=== PATIENT | female | born 1945 | race Caucasian/White ===

== ENCOUNTER 2021-03-24 14:53 | Emergency (ER) | payer MEDICARE, SELFPAY ==
--- NOTE | ~2021-03-24 | XR_ITS ---
EXAMINATION: BILATERAL WRIST, LEFT HIP AND PELVIS AND LEFT SHOULDER X-RAYS CLINICAL INFORMATION: Pain post fall COMPARISON: None TECHNIQUE: 4 views of each wrist, one view of the pelvis and left hip and 4 views of the left shoulder FINDINGS: Left wrist: Bone alignment is normal. No acute fracture or dislocation is seen. There is cortical thickening along the base of the second metacarpal bone questionable for changes from old trauma. There is severe arthritis at the first SENIOR LIVING joint with joint space narrowing and osteophyte formation. There is soft tissue calcification in the triangular fibrocartilage complex. There is soft tissue arterial calcification. Right wrist: Bone alignment is normal. No fracture or dislocation is seen. There is mild arthritis at the first SENIOR LIVING joint with joint space narrowing and osteophyte formation. There is soft tissue calcification of the triangular fibrocartilage complex region. There is soft tissue arterial calcification. Pelvis and left hip x-ray: Bone alignment is normal. No fracture or dislocation is seen. There is arthritis at the left hip joint with joint space narrowing and osteophyte formation. There is mild arthritis right hip joint. Bones of the pelvis are unremarkable. There are degenerative changes of the lower lumbar spine. There is soft tissue arterial calcification. Left shoulder: Bone alignment is normal. No fracture or dislocation is seen. The glenohumeral joint is normal. There is arthritis at the acromioclavicular joint. There are degenerative changes of the greater tuberosity. There are surgical clips in the left axilla. XR/XR wrist LT 2V IMPRESSION: No acute fracture or dislocation seen.
--- NOTE | ~2021-03-24 | CT_ITS ---
EXAMINATION: CT BRAIN AND CT CERVICAL SPINE WITHOUT CONTRAST. CLINICAL INFORMATION: Fall, hit head headache. COMPARISON: None TECHNIQUE: 5 mm thin axial and reformatted 2 mm thin sagittal and coronal images of brain were obtained. Axial 3 mm thin and reformatted 2 mm thin sagittal and coronal images of cervical spine were obtained. DLP [id number]. FINDINGS: Brain: There is acute interhemispheric subdural hematoma extending to the right tentorium. There is no edema or mass effect. There is no intraparenchymal bleed. No acute infarction. The lateral ventricles are symmetrical in size and configuration without enlargement. There is diffuse periventricular hypodensity suggestive of chronic small vessel ischemic changes. Bone windows reveal no calvarial fracture. Bilateral paranasal sinuses and mastoid air cells are well aerated. There is mild mucoperiosteal thickening right maxillary sinus. There is no scalp soft tissue abnormality seen. Cervical spine: There is mild straightening of cervical lordosis. The vertebral heights, alignment are normal. There is mild loss of C4-C5, C5-C6 and C6-C7 disc heights with moderate ventral and mild posterior spondylosis. The craniovertebral junction and the C1-C2 alignment is normal. No visible acute fracture, dislocation or subluxation seen. The prevertebral and paravertebral soft tissues are normal. There is calcification of the dentate ligament. Thyroid lobes are symmetrical with 7 mm calcified hypodense nodule right lobe. CT/CT cervical spine wo con IMPRESSION: Acute interhemispheric subdural hemorrhage extending to the right tentorium. No mass effect, edema or midline shift. There is mild straightening of cervical lordosis. Grade 1 anterolisthesis C3 over C4 is noted. There are degenerative disc changes with spondylosis C4-C5, C5-C6, C6-C7 and C7-T1 disc levels. No acute fracture or dislocation seen. Results were called to Charlene Echeverria in the ER by phone at 4:20 PM.
--- NOTE | ~2021-03-24 | XR_ITS ---
EXAMINATION: BILATERAL WRIST, LEFT HIP AND PELVIS AND LEFT SHOULDER X-RAYS CLINICAL INFORMATION: Pain post fall COMPARISON: None TECHNIQUE: 4 views of each wrist, one view of the pelvis and left hip and 4 views of the left shoulder FINDINGS: Left wrist: Bone alignment is normal. No acute fracture or dislocation is seen. There is cortical thickening along the base of the second metacarpal bone questionable for changes from old trauma. 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 There is soft tissue calcification in the triangular fibrocartilage complex. There is soft tissue arterial calcification. Right wrist: Bone alignment is normal. No fracture or dislocation is seen. There is mild arthritis at the first SENIOR CARE joint with joint space narrowing and osteophyte formation. There is soft tissue calcification of the triangular fibrocartilage complex region. There is soft tissue arterial calcification. Pelvis and left hip x-ray: Bone alignment is normal. No fracture or dislocation is seen. There is arthritis at the left hip joint with joint space narrowing and osteophyte formation. There is mild arthritis right hip joint. Bones of the pelvis are unremarkable. There are degenerative changes of the lower lumbar spine. There is soft tissue arterial calcification. Left shoulder: Bone alignment is normal. No fracture or dislocation is seen. The glenohumeral joint is normal. There is arthritis at the acromioclavicular joint. There are degenerative changes of the greater tuberosity. There are surgical clips in the left axilla. XR/XR wrist RT 2V IMPRESSION: No acute fracture or dislocation seen.
--- NOTE | ~2021-03-24 | XR_ITS ---
EXAMINATION: BILATERAL WRIST, LEFT HIP AND PELVIS AND LEFT SHOULDER X-RAYS CLINICAL INFORMATION: Pain post fall COMPARISON: None TECHNIQUE: 4 views of each wrist, one view of the pelvis and left hip and 4 views of the left shoulder FINDINGS: Left wrist: Bone alignment is normal. No acute fracture or dislocation is seen. There is cortical thickening along the base of the second metacarpal bone questionable for changes from old trauma. There is severe arthritis at the first LONG TERM joint with joint space narrowing and osteophyte formation. There is soft tissue calcification in the triangular fibrocartilage complex. There is soft tissue arterial calcification. Right wrist: Bone alignment is normal. No fracture or dislocation is seen. There is mild arthritis at the first LONG TERM joint with joint space narrowing and osteophyte formation. There is soft tissue calcification of the triangular fibrocartilage complex region. There is soft tissue arterial calcification. Pelvis and left hip x-ray: Bone alignment is normal. No fracture or dislocation is seen. There is arthritis at the left hip joint with joint space narrowing and osteophyte formation. There is mild arthritis right hip joint. Bones of the pelvis are unremarkable. There are degenerative changes of the lower lumbar spine. There is soft tissue arterial calcification. Left shoulder: Bone alignment is normal. No fracture or dislocation is seen. The glenohumeral joint is normal. There is arthritis at the acromioclavicular joint. There are degenerative changes of the greater tuberosity. There are surgical clips in the left axilla. XR/XR hip LT w PEL1V IMPRESSION: No acute fracture or dislocation seen.
--- NOTE | ~2021-03-24 | XR_ITS ---
EXAMINATION: BILATERAL WRIST, LEFT HIP AND PELVIS AND LEFT SHOULDER X-RAYS CLINICAL INFORMATION: Pain post fall COMPARISON: None TECHNIQUE: 4 views of each wrist, one view of the pelvis and left hip and 4 views of the left shoulder FINDINGS: Left wrist: Bone alignment is normal. No acute fracture or dislocation is seen. There is cortical thickening along the base of the second metacarpal bone questionable for changes from old trauma. There is severe arthritis at the first SKILLED NURSING joint with joint space narrowing and osteophyte formation. There is soft tissue calcification in the triangular fibrocartilage complex. There is soft tissue arterial calcification. Right wrist: Bone alignment is normal. No fracture or dislocation is seen. There is mild arthritis at the first SKILLED NURSING joint with joint space narrowing and osteophyte formation. There is soft tissue calcification of the triangular fibrocartilage complex region. There is soft tissue arterial calcification. Pelvis and left hip x-ray: Bone alignment is normal. No fracture or dislocation is seen. There is arthritis at the left hip joint with joint space narrowing and osteophyte formation. There is mild arthritis right hip joint. Bones of the pelvis are unremarkable. There are degenerative changes of the lower lumbar spine. There is soft tissue arterial calcification. Left shoulder: Bone alignment is normal. No fracture or dislocation is seen. The glenohumeral joint is normal. There is arthritis at the acromioclavicular joint. There are degenerative changes of the greater tuberosity. There are surgical clips in the left axilla. XR/XR shoulder LT min 2V IMPRESSION: No acute fracture or dislocation seen.
[2021-03-24 14:59] VITALS: BP 149/98; PULSE 71; RESP 16; TEMP 36.1; O2SAT 99; BMI 26.1
--- NOTE | 2021-03-24 15:41 | ED.FALL ---
HPI - Fall General Chief Complaint: Fall Stated Complaint: fell head, neck, and hip pain Time Seen by Provider: 03/24/21 15:19 Source: patient Mode of arrival: ambulatory Limitations: no limitations History of Present Illness HPI Narrative: 75 yo female with past medical history of IDDM, HTN, GERD, breast cancer s/p left mastectomy. Lost balance last night falling striking left side of head on car door. No LOC. +dent on the car door. Landed on buttocks, struck left shoulder and caught self with bilateral wrists. NO anticoagulation use. +BORREGO. No nausea/vomiting/dizziness/vision changes. ambulatory with walker. +ASA only Related Data Allergies Allergy/AdvReac Type Severity Reaction Status Date / Time codeine Allergy Unconscious Verified 03/24/21 16:23 hydromorphone [From Dilaudid] Allergy Unconscious Verified 03/24/21 16:23 morphine Allergy Unconscious Verified 03/24/21 16:23 povidone-iodine Allergy Unknown Verified 03/24/21 16:23 [From Betadine] shellfish derived Allergy Unknown Verified 03/24/21 16:23 soap [From Betadine] Allergy Unknown Verified 03/24/21 16:23 Review of Systems Review of Systems: Yes all other systems are reviewed and are negative Constitutional: Constitutional: Reports no additional constitutional complaints, Denies body ache(s), Denies chills, Denies fever(s), Reports headache(s) and Denies weakness Eyes: Eyes: Reports no additional eye complaints and Denies change in vision ENT: Reports system reviewed and no additional complaints, except as documented, Denies dizziness, Reports headache(s), Denies nasal congestion, Denies nasal discharge and Denies neck pain Cardiovascular: Cardiovascular: Reports no additional cardiovascular complaints, Denies chest pain, Denies leg edema and Denies dyspnea Respiratory: Respiratory: Reports no additional respiratory complaints, Denies cough and Denies dyspnea Gastrointestinal: Gastrointestinal: Reports no additional gastrointestinal complaints, Denies abdominal pain, Denies diarrhea, Denies nausea and Denies vomiting Genitourinary: Genitourinary: Reports no additional female genitourinary complaints and Denies urinary incontinence Musculoskeletal: Musculoskeletal: Reports no additional musculoskeletal complaints, Denies back pain, Reports arthralgias, Denies joint swelling, Denies neck pain, Denies numbness and Denies tingling Integumentary/Breasts: Skin/Breast: Reports system reviewed and no additional complaints, except as docu and Denies rash Neurologic: Reports system reviewed and no additional complaints, except as documented, Denies Abnormal speech present, Denies dizziness, Reports headache(s), Denies numbness, Denies tingling and Denies weakness PMFSH Past Medical History Attestation statement: The following information was validated with the patient. Source: old records reviewed and nursing notes reviewed Medical History Breast cancer Cervical cancer Diabetes HTN (hypertension) Thyroid cancer Surgical History H/O mastectomy H/O: hysterectomy Status post partial removal of lung Social History Social History Advance Directives: No Advance Directives Information Provided: Yes Physical Exam Vital Signs: Vital Signs: Last Vital Signs Temp 97.9 F 03/24/21 18:00 Pulse 71 03/24/21 18:00 Resp 16 03/24/21 18:00 BP 149/64 H 03/24/21 18:00 Pulse Ox 97 03/24/21 18:00 Body Mass Index 26.1 Const: General: cooperative, healthy appearing, comfortable and no acute distress Orientation/consciousness: patient oriented x3 Limitations: no limitations HENMT: Head: Yes normal to inspection Ears: hearing grossly normal bilaterally and TM's normal bilaterally General nose exam: Normal external nose present Face and sinus: Yes normal facial exam Mouth: Normal oral and palatal mucosa present Throat: Yes posterior oropharynx normal Eyes: General: appearance normal, both eyes and all related structures Pupils: Equal, round and reactive pupils present Neck: Other: midline tenderness, no step offs or deformities. Neck: Yes normal visual inspection, Yes full ROM and Yes no lymphadenopathy Chest: Chest palpation & inspection: normal inspection of the chest Resp: Effort & Inspection: normal respiratory effort Auscultation: clear to auscultation bilaterally Cardio: Rate: regular rate Rhythm: regular rhythm Peripheral pulses: Peripheral pulses 2+ throughout GI: Inspection: Yes normal to inspection Palpation (GI): Soft to palpation and nontender Auscultation: normal bowel sounds Back/Spine/Pelvis: Other: Tenderness to lumbar spine (no step offs or deformities) Tenderness to left lateral hip with no obvious swelling/deformity or ecchymosis. FROM. Ambulatory with walker. Also c/o tenderness to right hip with tenderness posterior right pelvis. FROM Thoracic/Lumbar Spine: thoracic and lumbar spine normal to inspection Skin: General skin exam: no rashes or lesions noted Neuro: General: patient oriented x3, moves all extremities and normal sensation to monofilament Cranial nerves: Yes Equal, round and reactive pupils present, Yes Normal facial strength present and Yes Midline tongue present Cognition (Neuro): normal cognition Speech: No Abnormal speech present Gait exam (Neuro): Normal gait present Motor exam (neuro): 5/5 motor strength present throughout Sensory Exam: Normal double simultaneous stimulation for sensation Extrem: Other: pain to bilateral wrists-splints in place. FROM. No obvious deformity/swelling. Pain to posterior shoulder left side and left lateral humerus with FROM General: Yes normal to inspection NIH Stroke Scale Internal: Initial- Upon Arrival Level of Consciousness: Alert Level of Consciousness Questions: Answers both questions correctly Level of Consciousness Commands: Performs both tasks correctly Best Gaze: Normal Visual: No visual loss Facial Palsy: Normal Motor Arm (Right): No drift Motor Arm (Left): No drift Motor Leg (Right): No drift Motor Leg (Left): No drift Limb Ataxia: Absent Sensory: Normal Best Language: No aphasia Dysarthia: Normal Extinction and Inattention: No abnormality Score: 0 Course Course Course Narrative: Multiple MS complaints s/p mechanical fall last evening. Will check X-rays. Also c/o head strike with complaints of BORREGO/neck pain. Will check CT head/neck. -1630-Call from radiologist. Concern for SDH. No mass effect or shift. Images sent through [facility]. Pending report. Repeat neurological exam unchanged. HD stable. -1640-Call out to [facility] [place] to discuss for transfer d/t no NSY coverage here. -1700-Spoke to Samira SCHMIDT at [facility]. Recommends holding ASA x 2 weeks, no need for transfer, f/u with PCP for repeat imaging. After discussion with patient and nursing I am concerned sending the patient home as she lives alone. Will discuss with our neurologist here. -1743-D/w with Sandy who agrees patient can be discharged home as long as she is comfortable with this. I spoke to patient and her son Jerod. The patient will be staying with him tonight and they are both comfortable with this plan of care. Reviewed worrisome signs/symptoms with patient and when to return to ED. Comfortable with discharge home. -Discussed entire case and plan with attending Dr Christie who agrees with plan of care. MDM - Fall Medical Records Attestation: I reviewed the patient's medical records. Lab Data Attestation: I reviewed the patient's lab results. Imaging Data bilateral wrist x-ray: Attestation: I personally reviewed and interpreted this imaging study as follows: Radiologist's impression: Left wrist: Bone alignment is normal. No acute fracture or dislocation is seen. There is cortical thickening along the base of the second metacarpal bone questionable for changes from old trauma. 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 There is soft tissue calcification in the triangular fibrocartilage complex. There is soft tissue arterial calcification. Right wrist: Bone alignment is normal. No fracture or dislocation is seen. There is mild arthritis at the first SENIOR CARE joint with joint space narrowing and osteophyte formation. There is soft tissue calcification of the triangular fibrocartilage complex region. There is soft tissue arterial calcification. pelvis/Left hip x-ray: Attestation: I personally reviewed and interpreted this imaging study as follows: Radiologist's impression: Pelvis and left hip x-ray: Bone alignment is normal. No fracture or dislocation is seen. There is arthritis at the left hip joint with joint space narrowing and osteophyte formation. There is mild arthritis right hip joint. Bones of the pelvis are unremarkable. There are degenerative changes of the lower lumbar spine. There is soft tissue arterial calcification. Left shoulder x-ray: Attestation: I personally reviewed and interpreted this imaging study as follows: Radiologist's impression: Left shoulder: Bone alignment is normal. No fracture or dislocation is seen. The glenohumeral joint is normal. There is arthritis at the acromioclavicular joint. There are degenerative changes of the greater tuberosity. There are surgical clips in the left axilla. Critical Care Time Critical Care Time Critical Care Time: Yes Total Critical Care Time: 60 Attestation: Abnormal CT scan, review of images, discussion with radiology, NSY at tertiary care center, neurology here, repeat neurological exams. Discharge Plan Discharge Clinical Impression: Subdural hemorrhage, Contusion Patient Disposition: Home, Self-Care Instructions: Intracranial Hematoma (ED), Contusion in Adults (ED) Additional Instructions: your CT scan of your head showed a small area of bleeding. After discussion with both Neurology and Neurosurgery the area is very small and you can follow-up outpatient with your primary care doctor in 2 weeks for repeat imaging hold her aspirin for 2 weeks return here for severe headache, vomiting episodes, dizziness, change in behavior, vision changes as discussed Referrals: Cassandra Tolentino MD [Primary Care Provider] - 2 days Interventions: ED Discharge Assessment Last Done: 03/24/21 18:18
[2021-03-24 18:00] VITALS: BP 149/64; PULSE 71; RESP 16; TEMP 36.6; O2SAT 97
== END 2021-03-24 18:40 | disposition home or self-care (01) ==
PROVIDERS: Emergency Provider Internal Medicine; PCP Internal Medicine
DX: S06.5X0A Traumatic subdural hemorrhage without loss of consciousness, initial encounter (principal); T14.8XXA Other injury of unspecified body region, initial encounter; I10 Essential (primary) hypertension; E11.9 Type 2 diabetes mellitus without complications; Z79.4 Long term (current) use of insulin; W18.30XA Fall on same level, unspecified, initial encounter; Y93.9 Activity, unspecified; Y92.9 Unspecified place or not applicable; Y99.9 Unspecified external cause status
CPT/HCPCS: 70450; 72125; 73030; 73100; 73502; 99284; 99291

== ENCOUNTER 2021-03-31 16:35 | Outpatient (REF) | payer MEDICARE, SELFPAY ==
--- NOTE | ~2021-03-31 | CT_ITS ---
EXAMINATION: CT HEAD WITHOUT CONTRAST CLINICAL INFORMATION: Traumatic subdural hemorrhage without loss of consciousness. COMPARISON: CT brain 03/24/2021. TECHNIQUE: Contiguous axial imaging was performed from the skull base to vertex without intravenous administration of contrast. This CT examination was performed using dose optimization techniques as appropriate, variously including the following: *Automated exposure control *Adjustment of mA and/or kV according to patient size (this includes techniques or standardized protocols for targeted exams where dose is matched to indication/reason for exam; i.e. extremities or head) *Use of iterative reconstruction technique DLP: 679 mGy-cm FINDINGS: Again visualized is diffuse hyperdense interhemispheric dura extending to the right tentorium similar to previous study from 03/24/2021. There is no major change in the thickness and hypodensity. There is no parenchymal mass, bleed or edema. There is diffuse periventricular hypodensity in both cerebral hemispheres without mass effect or edema. Bone windows reveal no calvarial abnormality. No scalp soft tissue abnormality. The paranasal sinuses are well aerated and unremarkable. CT/CT head/brain wo con IMPRESSION: No significant change in the diffusely thickened interhemispheric dura and right tentorium. Differential diagnosis includes chronic meningeal thickening. Hematoma is considered less likely. Recommend MRI brain without contrast. There is no acute infarct at this time.
== END 2021-03-31 16:36 | disposition home or self-care (01) ==
LOC: HO.CT 16:35
PROVIDERS: PCP Internal Medicine; Visit Provider Internal Medicine
DX: S06.5X0D Traumatic subdural hemorrhage without loss of consciousness, subsequent encounter (principal)
CPT/HCPCS: 70450

== ENCOUNTER 2023-05-03 11:34 | Outpatient (AMB) | payer MEDICARE, MEDICAID, SELFPAY ==
--- NOTE | 2023-05-03 12:30 | MHC.OFFWIV ---
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 Patient Tobacco Use Status: Never used Tobacco Allergies codeine Allergy (Verified 05/03/23 12:32) Unconscious hydromorphone [From Dilaudid] Allergy (Verified 05/03/23 12:32) Unconscious morphine Allergy (Verified 05/03/23 12:32) Unconscious povidone-iodine [From Betadine] Allergy (Verified 05/03/23 12:32) Unknown shellfish derived Allergy (Verified 05/03/23 12:32) Unknown soap [From Betadine] Allergy (Verified 05/03/23 12:32) Unknown Do you need a note to return to daycare/school/sports/work: No HPI HPI Comments History of Present Illness Details 77-year-old female presents for suture removal for laceration to the left lower extremity. [facility] Medical History Breast cancer Cervical cancer Diabetes HTN (hypertension) Thyroid cancer Surgical History H/O mastectomy H/O: hysterectomy Status post partial removal of lung Social History Patient Tobacco Use Status: Never used Tobacco Review of Systems Const Details: Constitutional: No Fever, No Chills Cardiovascular: No Chest Pain, No SOB Respiratory: No Cough, No Dyspnea Gastrointestinal: No Nausea, No Vomiting, No Diarrhea, No abdominal Pain Genitourinary: No Dysuria, No Hematuria Musculoskeletal: No joint pain, No Myalgias, No Joint Swelling Skin: Positive laceration to the left lower extremity, No rash Neuro: No Weakness, No Numbness, No Paresthesias, No Dizziness, No Headache All systems reviewed & are unremarkable except as noted in HPI and below Physical Exam Vital Signs: Last Vital Signs Temp 97.1 F 05/03/23 12:33 Pulse 79 05/03/23 12:33 BP 128/64 05/03/23 12:33 Pulse Ox 97 05/03/23 12:33 Oxygen Delivery Method Room Air 05/03/23 12:33 Appearance: Alert. Oriented X3. No acute distress. Eyes: Pupils equal, round and reactive to light. Neck: Normal inspection. Neck supple. CVS: Normal heart rate and rhythm. Pulses normal. Respiratory: No respiratory distress. Breath sounds normal. Abdomen: Soft and nontender. Skin: Cellulitis surrounding 4 cm laceration to the medial aspect of the left lower extremity. Wound dehiscence and purulent drainage noted from the site. Poorly approximated. Extremities: No lower extremity edema. Gait is balanced and well coordinated with walker. Neuro: No motor deficit. No sensory deficit. Cranial nerves 2-12 intact. Assessment & Plan Assessment & Plan (1) Visit for suture removal: Code(s): Z48.02 - Encounter for removal of sutures (2) Infected wound: Code(s): T14.8XXA - Other injury of unspecified body region, initial encounter; L08.9 - Local infection of the skin and subcutaneous tissue, unspecified Plan 77-year-old female presents for suture removal to a laceration that was repaired last Saturday. Patient states that she she obtained a laceration from a dog scratch, and was evaluated at [facility]. Patient stated that she has 11 sutures, was given Augmentin but stopped taking the medication 2 and half days ago because she was having GI symptoms. Patient is an insulin-dependent diabetic, on amlodipine, and Eliquis. The wound is erythematous, has purulent drainage, and has dehiscence. The wound is not well healed, with poor approximation. Sutures were removed as multiple had already broken due to the dehiscence. 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 Patient is afebrile, stable vital signs that are within normal limits, appears nontoxic, gait is well balanced and coordinated with her walker. Approximately 2 cm and a diameter of cellulitis surrounding a 4 cm poorly healed dehisced wound. Considering that this patient is afebrile, with a normal set of vital signs, I do not feel that she is septic at this time. I do feel that the wound is infected, and is cellulitic. Patient does understand that she must complete the entire course for antibiotics, will give doxycycline as patient is intolerant to Augmentin. Patient would like to add Augmentin to her allergy list, however I highly discouraged her doing that because of the GI symptoms are not a true allergic reaction. I highly recommend this patient present in 3 days for wound check, and if symptoms worsen for her to present to the emergency department. Patient verbalized understanding of discharge instructions. Verbalized understandings of signs and symptoms indicating need for emergent intervention. Medications: New doxycycline monohydrate 100 mg PO BID 10 days 20 caps 0RF Patient Instructions: You were evaluated for the wound to your lower extremity. The wound is not healing very well and is infected. Keep Steri-Strips in place. They will fall off on their own. Take doxycycline 100 mg every 12 hours for the next 10 days. Return for wound check on Saturday. Thank you for choosing this urgent care for evaluation. Please follow-up with primary care physician as needed. Return to the emergency department for any new, concerning, or worsening symptoms. Coding Level of Care Code Est Pt Level 3 (92375) Diagnoses Visit for suture removal Z48.02 Infected wound T14.8XXA; L08.9
[2023-05-03 12:33] VITALS: BP 128/64; PULSE 79; TEMP 36.2; O2SAT 97
== END 2023-05-03 13:19 | disposition home or self-care (01) ==
PROVIDERS: PCP Internal Medicine; Visit Provider Nurse Practitioner Family
DX: Z48.02 Encounter for removal of sutures (principal); T14.8XXA Other injury of unspecified body region, initial encounter; L08.9 Local infection of the skin and subcutaneous tissue, unspecified
CPT/HCPCS: 99213

== ENCOUNTER 2023-05-06 08:09 | Outpatient (AMB) | payer MEDICARE, MEDICAID, SELFPAY ==
--- NOTE | 2023-05-06 08:22 | AM.OFFWIN_ITS ---
Intake Vital Signs 05/06/23 08:30 Weight 164 lb BP 122/70 Blood Pressure Location Rt brachial Position Sitting Pulse 74 Pulse Source Pulse Oximeter Pulse Oximetry (%) 97 Intake Visit Reasons: EP, Dog Bite not getting better Intake Note: Patient here because she was bitten by a dog and some stitches were put in and when she had them removed saturday and was told that it was infected. pt states it was bleeding last night. Patient Tobacco Use Status: Never used Tobacco Allergies codeine Allergy (Verified 05/07/23 06:13) Unconscious hydromorphone [From Dilaudid] Allergy (Verified 05/07/23 06:13) Unconscious morphine Allergy (Verified 05/07/23 06:13) Unconscious povidone-iodine [From Betadine] Allergy (Verified 05/07/23 06:13) Unknown shellfish derived Allergy (Verified 05/07/23 06:13) Unknown soap [From Betadine] Allergy (Verified 05/07/23 06:13) Unknown Medication List - Last Reconciled 05/07/23 by Mamadou Shultz MD alendronate 70 mg PO QWEEK amlodipine 2.5 mg PO DAILY amoxicillin-pot clavulanate 875-125 mg 1 tab PO Q12H apixaban (Eliquis) 2.5 mg PO BID furosemide 20 mg PO BID insulin aspart U-100 (Novolog U-100 Insulin aspart) subcut levothyroxine 125 mcg PO DAILY lisinopril 5 mg PO DAILY nitroglycerin 0 mg sublingual sub-q insulin device, 20 unit (V-GO 20 device) As directed Do you need a note to return to daycare/school/sports/work: No HPI EP, Dog Bite not getting better HPI Details 77-year-old female presents to the office for a sick visit. This is her 3rd visit for a dog bite injury. She was seen in the emergency room with a scratch from her dog. It resulted in stitches over her right leg. She was seen last week at the walk-in and the wound appears to be healing well. Patient returns today because the Steri-Strips have not fallen off. She reports no tenderness. No fevers or chills. [facility] Medical History Breast cancer Cervical cancer Diabetes HTN (hypertension) Thyroid cancer Surgical History H/O mastectomy H/O: hysterectomy Status post partial removal of lung Social History Patient Tobacco Use Status: Never used Tobacco Physical Exam Vital Signs: Last Vital Signs Pulse 74 05/06/23 08:30 BP 122/70 05/06/23 08:30 Pulse Ox 97 05/06/23 08:30 Extrem Other: Right leg: Wound appears to be healing well. Steri-Strips are in place. No erythema or induration around the wound. Assessment & Plan Assessment & Plan (1) Wound of right leg: Code(s): S81.801A - Unspecified open wound, right lower leg, initial encounter Plan: Reassurance. Patient was advised that the Steri-Strips will fall off on their own. Coding Level of Care Code Est Pt Level 3 (82777) Diagnoses Wound of right leg S81.801A
[2023-05-06 08:30] VITALS: BP 122/70; PULSE 74; O2SAT 97
== END 2023-05-06 09:18 | disposition home or self-care (01) ==
PROVIDERS: PCP Internal Medicine; Visit Provider Internal Medicine
DX: S81.801A Unspecified open wound, right lower leg, initial encounter (principal)
CPT/HCPCS: 99213

== ENCOUNTER 2023-06-12 08:56 | Outpatient (RCR) | payer MEDICARE, MEDICAID, SELFPAY | END 2024-04-17 12:12 | disposition home or self-care (01) | LOC: HO.WCC 08:56 | PROVIDERS: PCP Internal Medicine; Visit Provider Surgery | DX: Z09 Encounter for follow-up examination after completed treatment for conditions other than malignant neoplasm (principal); E11.40 Type 2 diabetes mellitus with diabetic neuropathy, unspecified; E11.22 Type 2 diabetes mellitus with diabetic chronic kidney disease; I12.9 Hypertensive chronic kidney disease with stage 1 through stage 4 chronic kidney disease, or unspecified chronic kidney disease; N18.30 Chronic kidney disease, stage 3 unspecified; Z87.891 Personal history of nicotine dependence; Z86.718 Personal history of other venous thrombosis and embolism; Z92.21 Personal history of antineoplastic chemotherapy; Z92.3 Personal history of irradiation; Z86.31 Personal history of diabetic foot ulcer | CPT/HCPCS: 11042; 11043; 15275; 97597; 99212; Q4187 ==

== ENCOUNTER 2023-12-05 09:21 | Outpatient (REF) | payer MEDICARE, MEDICAID, SELFPAY ==
--- NOTE | ~2023-12-05 | XR_ITS ---
EXAMINATION: XR HIP, RIGHT CLINICAL INFORMATION: Pain in right hip. COMPARISON: AP pelvis and left hip radiographs of 03/24/2021. TECHNIQUE: AP view of the pelvis and lateral view of the right hip. FINDINGS: Advanced degenerative changes on AP view of the left hip with joint space narrowing and hypertrophic change. Bones are diffusely demineralized. Devices overlie the left iliac wing and medial aspect of the left femoral head. Extensive vascular calcifications. Intramedullary devorah and screw transfix comminuted fracture of the right intertrochanteric region of unknown age. Prior images and history of fracture are not available at this time. Please note that the distal femoral portion of the devorah is not included on images provided, and dedicated images of the mid to distal femur should be considered if there is clinical concern. Fracture lines are visible, but there is some associated sclerosis suggesting some bridging callus. Increased soft tissue calcifications along the superolateral aspect of the femur. Linear radiopaque device projects lateral to the greater trochanter. XR/XR hip RT min 2V IMPRESSION: Intramedullary devorah and screw transfix comminuted fracture of the right intertrochanteric region of unknown age. Prior images and history of fracture are not available at this time. Correlation with clinical history and exam recommended to determine further management. This study was presented today, 12/11/2023, for interpretation. PSA staff will provide results to referring provider at this time.
== END 2023-12-05 09:22 | disposition home or self-care (01) ==
LOC: HO.HOSX 09:21
PROVIDERS: Visit Provider Orthopaedic Surgery
DX: M25.551 Pain in right hip (principal); Z79.899 Other long term (current) drug therapy
CPT/HCPCS: 73502; 99202

== ENCOUNTER 2023-12-05 13:42 | Outpatient (AMB) | payer MEDICARE, MEDICAID, SELFPAY ==
--- NOTE | 2023-12-05 13:57 | A.OFFVIS_ITS ---
Intake Vital Signs 12/05/23 13:57 Weight 164 lb Intake Visit Reasons: New Pt - right hip pain Intake Note: Tosin is a a 78 year old female who presents as new patient with complaints of intermittent right hip pain after undergoing open reduction and internal fixation of her right hip subtrochanteric fracture in July of 2023 at another institution. The patient does not recall the name of her surgeon. The patient states that following her surgery she did stay at [facility]. She did not go to outpatient physical therapy. She continues to walk with a rolling walker. She does take tramadol which gives her fairly good relief. Allergies codeine Allergy (Verified 12/05/23 14:06) Unconscious hydromorphone [From Dilaudid] Allergy (Verified 12/05/23 14:06) Unconscious morphine Allergy (Verified 12/05/23 14:06) Unconscious povidone-iodine [From Betadine] Allergy (Verified 12/05/23 14:06) Unknown shellfish derived Allergy (Verified 12/05/23 14:06) Unknown soap [From Betadine] Allergy (Verified 12/05/23 14:06) Unknown Medication List - Last Reconciled 12/05/23 by Ruy Cedeño MD alendronate 70 mg PO QWEEK amlodipine 2.5 mg PO DAILY amoxicillin-pot clavulanate 875-125 mg 1 tab PO Q12H apixaban (Eliquis) 2.5 mg PO BID furosemide 20 mg PO BID insulin aspart U-100 (Novolog U-100 Insulin aspart) subcut levothyroxine 125 mcg PO DAILY lisinopril 5 mg PO DAILY nitroglycerin 0 mg sublingual sub-q insulin device, 20 unit (V-GO 20 device) As directed [facility] Medical History (Updated 12/02/23 @ 09:19 by Ruy Cedeño MD) HTN (hypertension) Cervical cancer Thyroid cancer Breast cancer Diabetes Surgical History (Updated 12/05/23 @ 14:12 by Lianet Vogt CMA) History of hip surgery Status post partial removal of lung H/O: hysterectomy H/O mastectomy Social History (Updated 12/05/23 @ 14:11 by Lianet Vogt CMA) Patient Tobacco Use Status: Never used Tobacco Current occupational status: retired 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 Physical Exam Const Other: Well-nourished well-developed very friendly female awake alert and oriented x3 in no acute distress Extrem Other: Bilateral lower extremity examination shows good capillary refill, no skin lesions noted, normal sensation light touch Right hip examination shows that the surgical incisions are well healed, no erythema, minimal discomfort with range of motion, no crepitus with range of motion Results Reviewed Results Reviewed: X-ray of the patient's right hip show a long gamma nail in good position with no signs of loosening, a mildly displaced subtrochanteric fracture with varus angulation, callus formation at the fracture site Assessment & Plan Assessment & Plan (1) Right hip pain: Code(s): M25.551 - Pain in right hip Plan Ms. Gonzalez presents with intermittent right hip discomfort after undergoing open reduction and internal fixation of her right hip subtrochanteric fracture in July of 2023 at another institution. I discussed with the patient the fact that her fracture is most likely still healing at this point. Her symptoms robin uld continue to improve over the next few months. We will hold off on outpatient physical therapy for now. She will continue using her walker to prevent another fall. She will contact me prior to her follow-up appointment in 2 months should any questions or concerns arise. Feel free to call me at any time should questions regarding her orthopedic management arise. Thank you very much for asking me to see this very friendly patient. I spent 22 minutes in reviewing the patient's records and imaging studies, seeing the patient and documenting in the medical record. Orders: Orders XR hip RT min 2V Today M25.551 - Pain in right hip Coding Level of Care Code New Pt Level 2 (75104) Diagnoses Right hip pain M25.551
== END 2023-12-05 14:23 | disposition home or self-care (01) ==
PROVIDERS: PCP Internal Medicine; Visit Provider Orthopaedic Surgery
DX: M25.551 Pain in right hip (principal)
CPT/HCPCS: 99202

== ENCOUNTER 2024-01-06 13:08 | Outpatient (REF) | payer MEDICARE, MEDICAID, SELFPAY ==
--- NOTE | ~2024-01-06 | US_ITS ---
EXAMINATION: US VENOUS ULTRASOUND WITH DOPPLER LOWER EXTREMITY, LEFT CLINICAL INFORMATION: Edema. Pain. COMPARISON: None available. TECHNIQUE: Ultrasound of the deep veins is performed from the hip to the calf with compression sonography and color and pulse Doppler assessment. Spectral analysis with color-flow imaging is performed. FINDINGS: There is normal venous compression and respiratory variation and augmented flow. The visualized common femoral vein, superficial femoral vein, profunda femoral vein, popliteal vein, and the trifurcation region shows no evidence of deep venous thrombosis. There is no significant popliteal fossa cyst. The proximal greater saphenous vein is a short region which is only partially compressible. Question if there is an history of prior therapy for varicosities, venous seal versus a small partially occlusive superficial thrombus. There are varicosities in the lateral mid calf which are patent and compressible. There is edema in the subcutaneous tissue of the left mid calf in the area of pain and redness. No mass or drainable fluid collection. If the patient's symptoms persist, followup ultrasound in 5 days 7 days might be of value to exclude proximal propagation from a non-visualized calf vein. US/US venous duplex LE IMPRESSION: 1. No DVT demonstrated in the left lower extremity. 2. Short segment of the proximal greater saphenous vein which is only partially compressible. Question if there is an history of prior therapy for varicosities, venous seal versus a small partially occlusive superficial thrombus. 3. There are varicosities in the lateral mid calf which are patent and compressible.
== END 2024-01-06 13:09 | disposition home or self-care (01) ==
LOC: HO.US 13:08
PROVIDERS: Visit Provider Physician Assistant
DX: R22.42 Localized swelling, mass and lump, left lower limb (principal)
CPT/HCPCS: 93971

== ENCOUNTER 2024-02-06 08:43 | Outpatient (REF) | payer MEDICARE, MEDICAID, SELFPAY ==
--- NOTE | ~2024-02-06 | XR_ITS ---
EXAMINATION: XR HIP, RIGHT Pelvis CLINICAL INFORMATION: Pain in the right hip COMPARISON: None available. TECHNIQUE: AP view of the pelvis and lateral view of the right hip FINDINGS: The proximal end of the devorah and screw fixation stabilizing previously noted intertrochanteric fracture redemonstrated. Fracture remains visible. Alignment unchanged. Mild chondrocalcinosis of the right hip without joint space narrowing. Mild degenerative changes of the symphysis pubis unchanged. Mild arthrosis of the left hip with marginal osteophytes. Sacroiliac joints unremarkable. Electronic device overlies the pelvis Arterial calcification present. XR/XR hip RT min 2V IMPRESSION: 1. Stable appearance of the pelvis and right hip with orthopedic fixation of the previously noted proximal femur/intertrochanteric fracture unchanged compared with the prior exam. 2. Mild arthrosis of the right hip and left hip.
--- NOTE | ~2024-02-06 | XR_ITS ---
EXAMINATION: XR FEMUR, RIGHT CLINICAL INFORMATION: Pain in right hip COMPARISON: Same-day right hip and AP pelvis TECHNIQUE: Single AP view of the mid and distal right femur FINDINGS: Single AP view of the mid and distal right femur demonstrates an intact medullary devorah within associated horizontal screw in the distal femoral shaft. The visualized bones are intact. There is narrowing of the medial and lateral joint compartments of the knee. Small calcific density is noted adjacent to the proximal medial tibia. Arterial calcification is noted. XR/XR femur RT 1V IMPRESSION: Single AP view of the mid and distal right femur demonstrates an intact medullary devorah and associated horizontal screw in the distal femoral shaft.
== END 2024-02-06 08:44 | disposition home or self-care (01) ==
LOC: HO.HOSX 08:43
PROVIDERS: Visit Provider Orthopaedic Surgery
DX: S72.21XD Displaced subtrochanteric fracture of right femur, subsequent encounter for closed fracture with routine healing (principal)
CPT/HCPCS: 73502; 73551; 99212

== ENCOUNTER 2024-02-06 11:25 | Outpatient (AMB) | payer MEDICARE, MEDICAID, SELFPAY ==
--- NOTE | 2024-02-06 11:25 | MHC.OFFVIS ---
Vital Signs 02/06/24 11:26 Height 5 ft 5 in Weight 164 lb BMI 27.3 Intake Visit Reasons: OV-right hip pain-follow up Intake Note: Tosin is a a 78 year old female who presents after undergoing open reduction and internal fixation of her right hip subtrochanteric fracture in July of 2023 at another institution. The patient does not recall the name of her surgeon. The patient states that following her surgery she did stay at [facility]. The patient reports intermittent discomfort in her right knee. She does not take any medicines for discomfort. The patient states that she aggravated her knee several weeks ago while kneeling on the floor. She reports minimal discomfort in her right hip. She has completed formal physical therapy. She continues with her home exercise program. She does walk with a rolling walker. Allergies codeine Allergy (Verified 02/06/24 11:38) Unconscious hydromorphone [From Dilaudid] Allergy (Verified 02/06/24 11:38) Unconscious morphine Allergy (Verified 02/06/24 11:38) Unconscious povidone-iodine [From Betadine] Allergy (Verified 02/06/24 11:38) Unknown shellfish derived Allergy (Verified 02/06/24 11:38) Unknown soap [From Betadine] Allergy (Verified 02/06/24 11:38) Unknown Medication List - Last Reconciled 02/06/24 by Ruy Cedeño MD alendronate 70 mg PO QWEEK amlodipine 2.5 mg PO DAILY amoxicillin-pot clavulanate 875-125 mg 1 tab PO Q12H apixaban (Eliquis) 2.5 mg PO BID furosemide 20 mg PO BID insulin aspart U-100 (Novolog U-100 Insulin aspart) subcut levothyroxine 125 mcg PO DAILY lisinopril 5 mg PO DAILY nitroglycerin 0 mg sublingual sub-q insulin device, 20 unit (V-GO 20 device) As directed [facility] Medical History (Updated 12/02/23 @ 09:19 by Ruy Cedeño MD) HTN (hypertension) Cervical cancer Thyroid cancer Breast cancer Diabetes Surgical History (Updated 12/05/23 @ 14:12 by Lianet Vogt CMA) History of hip surgery Status post partial removal of lung H/O: hysterectomy H/O mastectomy Social History (Updated 12/05/23 @ 14:11 by Lianet Vogt CMA) Patient Tobacco Use Status: Never used Tobacco Current occupational status: retired 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 Physical Exam Vital Signs: BMI result Body Mass Index 27.3 Const Other: Well-nourished well-developed very friendly female awake alert and oriented x3 in no acute distress Extrem Other: Right hip examination shows that the surgical incisions are well healed, no erythema, minimal discomfort with range of motion, mild tenderness over her greater trochanteric bursa, no overlying skin lesions, no crepitus with range of motion Right knee examination shows a minimal effusion, mild crepitus with range of motion, mild discomfort with range of motion, no instability Results Reviewed Results Reviewed: X-rays of the patient's right hip and femur show a long gamma nail in good position, increased callus formation at the subtrochanteric fracture site, the distal locking bolt which was placed in the static hole is broken but there is no sign of gross instability Assessment & Plan Assessment & Plan (1) Right hip pain: Code(s): M25.551 - Pain in right hip Category: Medical Plan Ms. Gonzalez continues to do well after undergoing intramedullary nailing of her right femur subtrochanteric fracture. The patient's fracture continues to heal both radiographically and clinically. At this point she has minimal discomfort. She will continue with her home exercise program. She will follow up with in 2-3 months time for repeat clinical examination. She will contact me prior to that time should her symptoms worsen in any way. I spent 22 minutes in reviewing the patient's records and imaging studies, seeing the patient and documenting in the medical record. Orders: Orders XR femur RT 1V Today M25.551 - Pain in right hip XR hip RT min 2V Today M25.551 - Pain in right hip Coding Level of Care Code Est Pt Level 2 (25031) Diagnoses Right hip pain M25.551
[2024-02-06 11:26] VITALS: BMI 27.3
== END 2024-02-06 11:51 | disposition home or self-care (01) ==
PROVIDERS: PCP Internal Medicine; Visit Provider Orthopaedic Surgery
DX: M25.551 Pain in right hip (principal)
CPT/HCPCS: 99213

== ENCOUNTER 2024-05-12 11:04 | Outpatient (REF) | payer MEDICARE, MEDICAID, SELFPAY ==
--- NOTE | ~2024-05-12 | XR_ITS ---
EXAMINATION: XR FEMUR, RIGHT CLINICAL INFORMATION: Pain in great COMPARISON: Radiographs dated 02/06/2024. TECHNIQUE: AP and lateral views of the right femur were obtained. FINDINGS: There is bony demineralization. There is a healing proximal right femoral fracture, with intact femoral intramedullary devorah, distal fixator screw and proximal compression screw. The fracture line is diminished, consistent with increased bony union. No hardware failure or loosening is seen. The right acetabular joint space is well-maintained, and the right femoral head remains smooth. There are are diffuse atherosclerotic calcifications. XR/XR femur RT 2V IMPRESSION: A healing fracture is noted of the proximal right femur, in stable alignment. There is increased callus formation. No hardware failure or loosening is seen. Electronically signed by: Doug Ordonez MD 06/04/2024 04:58 PM EDT
== END 2024-05-12 11:05 | disposition home or self-care (01) ==
LOC: HO.HOSX 11:04
PROVIDERS: Visit Provider Orthopaedic Surgery
DX: M25.551 Pain in right hip (principal); R29.898 Other symptoms and signs involving the musculoskeletal system
CPT/HCPCS: 73552; 99212

== ENCOUNTER 2024-05-12 11:33 | Outpatient (AMB) | payer MEDICARE, MEDICAID, SELFPAY ==
--- NOTE | 2024-05-12 11:44 | A.OFFVIS_ITS ---
Intake Visit Reasons: OV-right hip pain-follow up Intake Note: Tosin is a a 78 year old female who presents after undergoing open reduction and internal fixation of her right hip subtrochanteric fracture in July of 2023 at another institution. The patient does not recall the name of her surgeon. The patient states that following her surgery she did stay at [facility]. She continues with her home exercise program. She would like to go to formal physical therapy. She does walk with a rolling walker. She reports intermittent weakness in her right leg. She denies any fevers or chills. Allergies codeine Allergy (Verified 05/12/24 11:51) Unconscious hydromorphone [From Dilaudid] Allergy (Verified 05/12/24 11:51) Unconscious morphine Allergy (Verified 05/12/24 11:51) Unconscious povidone-iodine [From Betadine] Allergy (Verified 05/12/24 11:51) Unknown shellfish derived Allergy (Verified 05/12/24 11:51) Unknown soap [From Betadine] Allergy (Verified 05/12/24 11:51) Unknown Medication List - Last Reconciled 05/12/24 by Ruy Cedeño MD alendronate 70 mg PO QWEEK amlodipine 2.5 mg PO DAILY amoxicillin-pot clavulanate 875-125 mg 1 tab PO Q12H apixaban (Eliquis) 2.5 mg PO BID furosemide 20 mg PO BID insulin aspart U-100 (Novolog U-100 Insulin aspart) subcut levothyroxine 125 mcg PO DAILY lisinopril 5 mg PO DAILY nitroglycerin 0 mg sublingual sub-q insulin device, 20 unit (V-GO 20 device) As directed [facility] Medical History (Updated 05/12/24 @ 11:57 by Ruy Cedeño MD) HTN (hypertension) Cervical cancer Thyroid cancer Breast cancer Diabetes Surgical History (Updated 12/05/23 @ 14:12 by Lianet Vogt CMA) History of hip surgery Status post partial removal of lung H/O: hysterectomy H/O mastectomy Social History (Updated 12/05/23 @ 14:11 by Lianet Vogt CMA) Patient Tobacco Use Status: Never used Tobacco Current occupational status: retired 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 Physical Exam Const Other: Well-nourished well-developed very friendly female awake alert and oriented x3 in no acute distress Extrem Other: Right hip examination shows that the surgical incisions are well healed, no erythema, no discomfort with range motion, mild tenderness over her greater trochanteric bursa, no crepitus with range of motion Results Reviewed Results Reviewed: X-rays of the patient's right hip and femur show a long gamma nail in good position with no signs of loosening, bony trabecular crossing her right hip fracture site, no acute abnormalities Assessment & Plan Assessment & Plan (1) Right hip pain: Code(s): M25.551 - Pain in right hip Category: Medical (2) Right leg weakness: Code(s): R29.898 - Other symptoms and signs involving the musculoskeletal system Category: Medical Plan Ms. Gonzalez continues to do well after undergoing intramedullary nailing of her right hip fracture in July of 2023. Patient continues to clinically and radiographically heal well. I did give her a prescription to go to formal physical therapy. She will contact me prior to her follow-up appointment in 3 months should any questions or concerns arise. Feel free to call me at any time should questions regarding her orthopedic management arise. I spent 22 minutes in reviewing the patient's records and imaging studies, seeing the patient and documenting in the medical record. Orders: Orders XR femur RT 2V Today M25.551 - Pain in right hip PT Evaluation and Treatment Today R29.898 - Other symptoms and signs involving the musculoskeletal system Coding Level of Care Code Est Pt Level 3 (11412) Diagnoses Right hip pain M25.551 Right leg weakness R29.898
== END 2024-05-12 12:54 | disposition home or self-care (01) ==
PROVIDERS: PCP Internal Medicine; Visit Provider Orthopaedic Surgery
DX: M25.551 Pain in right hip (principal); R29.898 Other symptoms and signs involving the musculoskeletal system
CPT/HCPCS: 99213

== ENCOUNTER 2024-06-02 11:18 | Outpatient (AMB) | payer MEDICARE, MEDICAID, SELFPAY ==
--- NOTE | 2024-06-02 11:23 | A.OFFVIS_ITS ---
Vital Signs 06/02/24 11:25 Height 5 ft 5 in Weight 134 lb BMI 22.3 Handedness Right Intake Visit Reasons: New Prob- B/L hand numbness/tingling Intake Note: Tosin is an 78 year old right hand dominant female who presents today for a new problem visit with complaints of bilateral hand numbness and tingling that has been going on for a year and gradually worsening. Patient reports she wakes up crying from her hands hurting her. Reports her right hand 2nd, 3rd, 4th and 5th digits have numbness and tingling, middle finger needles and pins all the time. Right hand swollen at her joints, feels like middle finger and thumb of right and left hand joints feel like they are out of place and cause her pain. Left hand 2nd, 3rd, 4th, and occasionally 5th have numbness and tingling. bone at base of thumbs move around and causes her pain. Her B/L middle fingers get stuck whenever she attempts to make a closed fist, unable to do so and cannot straighten any of her fingers fully. She likes to pass her time playing card games on her computer and she is unable to do so lately cause of her symptoms. Tylenol does not help her with relief. Has tried hand braces that are like a glove but this does not relief her. hx of injection into right middle finger, the dr who administered this injection told her if she has too many injections in finger they can affect mobility and tissue. hx of DM, pt has insulin pump. Pt reports neuropathy in her hands. Allergies codeine Allergy (Verified 06/02/24 11:26) Unconscious hydromorphone [From Dilaudid] Allergy (Verified 06/02/24 11:) Unconscious morphine Allergy (Verified 06/02/24 11:) Unconscious povidone-iodine [From Betadine] Allergy (Verified 06/02/24 11:) Unknown shellfish derived Allergy (Verified 06/02/24 11:) Unknown soap [From Betadine] Allergy (Verified 06/02/24 11:) Unknown HPI HPI New Prob- B/L hand numbness/tingling: Details: Patient is a 78-year-old female who presents for evaluation of bilateral hand pain, numbness, tingling ongoing for approximately 1-2 years. The patient reports that she has previously been told that she has neuropathy in her hands, and then she has diabetes, but she is unsure of her last A1c. Patient states that she experiences constant numbness in the right hand, with intermittent, less severe numbness being noted on the left hand. The patient also states that she has noted marked weakness of bilateral hands, ongoing for approximately the same period of time. The patient also states that she does have a history of trigger fingers in bilateral middle fingers, and states that she has had several injections into the right middle finger for the trigger finger, but states these injections were extremely painful and she would not like another 1. The patient also states that she would like to identify the root cause of her numbness and tingling before any further treatment of her trigger fingers. No other acute complaints or concerns at this time. [facility] Medical History (Updated 06/02/24 @ 14:18 by BRAYAN Esparza) HTN (hypertension) Cervical cancer Thyroid cancer Breast cancer Diabetes Surgical History (Updated 12/05/23 @ 14:12 by Lianet Vogt CMA) History of hip surgery Status post partial removal of lung H/O: hysterectomy H/O mastectomy Social History (Updated 12/05/23 @ 14:11 by Lianet Vogt CMA) Patient Tobacco Use Status: Never used Tobacco Current occupational status: retired 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 Review of Systems Const All systems reviewed & are unremarkable except as noted in HPI and below Physical Exam Vital Signs: BMI result Body Mass Index 22.3 Extrem Other: Patient is alert, oriented, and in no acute distress. Neuro: Patient reports diminished sensation of the tips of all digits of the right hand at this time Patient does report normal sensation of the tips of all digits of the left hand at this time. Vascular: Cap refill brisk bilaterally Pain: Patient reports significant tenderness to palpation about the bilateral thumbs, particularly at the level of the basal joint The patient also reports tenderness to palpation at the level of the A1 sachin of bilateral middle fingers ROM: With encouragement, the patient is able to get close to a closed fist on the right Patient is able to make a closed fist on the left without difficulty There is visible and palpable locking and catching of the right middle finger No visible or palpable locking and catching of the left middle finger at this time Skin: No lacerations or abrasions. General: No ecchymosis, erythema, or evidence of infection. Psych: Appears grossly normal Affect normal Attitude cooperative Assessment & Plan Assessment & Plan (1) Stiffness of joints of both hands: Code(s): M25.641 - Stiffness of right hand, not elsewhere classified; M25.642 - Stiffness of left hand, not elsewhere classified Category: Medical (2) Numbness and tingling in both hands: Code(s): R20.0 - Anesthesia of skin; R20.2 - Paresthesia of skin Category: Medical (3) Trigger finger, right middle finger: Code(s): M65.331 - Trigger finger, right middle finger Category: Medical (4) Trigger finger, left middle finger: Code(s): M65.332 - Trigger finger, left middle finger Category: Medical Plan 1. Bilateral hand numbness and tingling Ongoing for 1-2 years Symptoms almost constant but daily on the right, intermittent but daily on the left At this time, the patient does not have a current EMG or nerve conduction study on file Patient is referred for new EMG and nerve conduction study at this time Patient will follow-up after nerve conduction study for discussion of results and further treatment options available Patient is amenable to this plan 2. Trigger finger, right middle finger 3. Trigger finger, left middle finger Patient states that she has had several injections previously, and would not like another Patient also states that she would like to figure out what is causing her numbness and tingling in her hands before pursuit of any further treatment of her trigger fingers Patient will follow-up as needed with any acute concerns Orders: Orders NE electromyogram (EMG) Today R20.0 - Anesthesia of skin, R20.2 - Paresthesia of skin OT Evaluation and Treatment Today M25.641 - Stiffness of right hand, not elsewhere classified, M25.642 - Stiffness of left hand, not elsewhere classified NE nerve conduction velocity Today R20.0 - Anesthesia of skin, R20.2 - Paresthesia of skin Coding Level of Care Code New Pt Level 3 (95096) Diagnoses Stiffness of joints of both hands M25.641; M25.642 Numbness and tingling in both hands R20.0; R20.2 Trigger finger, right middle finger M65.331 Trigger finger, left middle finger M65.332
[2024-06-02 11:25] VITALS: BMI 22.3
== END 2024-06-02 12:07 | disposition home or self-care (01) ==
PROVIDERS: PCP Internal Medicine
DX: R20.0 Anesthesia of skin (principal); R20.2 Paresthesia of skin; M25.641 Stiffness of right hand, not elsewhere classified; M25.642 Stiffness of left hand, not elsewhere classified; M65.331 Trigger finger, right middle finger; M65.332 Trigger finger, left middle finger
CPT/HCPCS: 99203

== ENCOUNTER → 2024-06-02 11:18 | Outpatient (BNVA) | payer MEDICARE, MEDICAID, SELFPAY | PROVIDERS: PCP Internal Medicine | DX: R20.0 Anesthesia of skin (principal); R20.2 Paresthesia of skin; M25.641 Stiffness of right hand, not elsewhere classified; M25.642 Stiffness of left hand, not elsewhere classified; M65.331 Trigger finger, right middle finger; M65.332 Trigger finger, left middle finger | CPT/HCPCS: 99202 ==

== ENCOUNTER 2024-06-18 12:06 | Outpatient (REF) | payer MEDICARE, MEDICAID, SELFPAY ==
--- NOTE | 2024-06-18 12:14 | EMG_ITS ---
Chief complaint: Hand pain, right worse than left Reason for referral: Evaluate for Carpal Tunnel Syndrome Referred by: Nader SCHMIDT Procedure done: Bilateral upper extremities NCS Precautions and/or limitations: Patient on Eliquis. Patient very anxious/nervous for the test. The limb temperature was monitored continuously and remained between 32-36 degrees C during the performance of the NCS. Nerve Conduction Studies Anti Sensory Summary Table ?Stim Site NR Onset (ms) Norm Onset (ms) Peak (ms) Norm Peak (ms) O-P Amp (?V) Norm O-P Amp Site1 Site2 Delta-0 (ms) Dist (cm) Carlos (m/s) Norm Carlos (m/s) Left Median Anti Sensory (2nd Digit) Wrist NR <3.6 >10 Wrist 2nd Digit 14.0 Right Median Anti Sensory (2nd Digit) Wrist NR <3.6 >10 Wrist 2nd Digit 14.0 Left Radial Anti Sensory (Thumb) Forearm ? 1.8 2.5 <3.1 13.1 Forearm Thumb 1.8 0.0 Right Radial Anti Sensory (Thumb) Forearm ? 1.2 2.4 <3.1 21.6 Forearm Thumb 1.2 0.0 Left Ulnar Anti Sensory (5th Digit) Wrist NR <3.7 >15.0 Wrist 5th Digit 14.0 Right Ulnar Anti Sensory (5th Digit) Wrist ? 1.7 3.0 <3.7 15.9 >15.0 Wrist 5th Digit 1.7 14.0 82 Motor Summary Table ?Stim Site NR Onset (ms) Norm Onset (ms) O-P Amp (mV) Norm O-P Amp iAmp (mV) Amp (1st) (%) Site1 Site2 Delta-0 (ms) Dist (cm) Carlos (m/s) Norm Carlos (m/s) Left Median Motor (Abd Poll Brev) Wrist ? 10.1 <3.9 2.8 >4.5 3.5 100.0 Elbow Wrist 4.4 18.0 41 >45 Elbow ? 14.5 2.6 3.1 92.9 Right Median Motor (Abd Poll Brev) Wrist NR <3.9 >4.5 Elbow Wrist 0.0 >45 Elbow NR Left Ulnar Motor (Abd Dig Minimi) Wrist ? 3.0 <3.0 3.7 >5 4.9 100.0 B Elbow Wrist 3.1 16.0 52 >45 B Elbow ? 6.1 3.1 4.3 83.8 A Elbow B Elbow 1.9 10.0 53 >45 A Elbow ? 8.0 3.2 4.5 86.5 Right Ulnar Motor (Abd Dig Minimi) Wrist ? 2.9 <3.0 5.3 >5 6.0 100.0 B Elbow Wrist 3.5 18.0 51 >45 B Elbow ? 6.4 4.4 5.1 83.0 A Elbow B Elbow 1.6 10.0 63 >45 A Elbow ? 8.0 4.2 5.1 79.2 FINDINGS: Right median motor nerve showed absent response. Left median motor nerve showed prolonged distal latency, small amplitude and slow conduction velocity. Left ulnar motor nerve showed normal distal latency, small amplitude and normal conduction velocity. Bilateral median sensory nerves no response. Left ulnar sensory nerve no response. All other nerves tested were within normal. IMPRESSION: 1. This is an abnormal study. 2. There is electrodiagnostic evidence for right severe and left moderate-severe median neuropathy at the wrist, consistent with carpal tunnel syndrome. 3. There is electrodiagnostic evidence for left ulnar neuropathy, suspect at the elbow. CLINICAL COMMENT: Patient talks about a fall 6 months ago and continues to have symptoms on right elbow. Follow up with Orthopedics. Thank you for your kind referral. Mouna Baech MD, CHRISTINE Board Certified, [place] Board [employer] and [employer] (ABPMR) Board Certified, [place] Board [employer] Electrodiagnostic Medicine (ABEM) CODIN [id number] x 2 MTDD
== END 2024-06-18 12:07 | disposition home or self-care (01) ==
LOC: HO.NEURO 12:06
DX: R20.0 Anesthesia of skin (principal); R20.2 Paresthesia of skin
CPT/HCPCS: 95886; 95911

== ENCOUNTER → 2024-06-18 12:14 | Outpatient (BNV) | payer MEDICARE, MEDICAID, SELFPAY | PROVIDERS: Visit Provider Physical Medicine & Rehabilitation | DX: G56.03 Carpal tunnel syndrome, bilateral upper limbs (principal) | CPT/HCPCS: 95886; 95911 ==

== ENCOUNTER 2024-06-25 12:48 | Outpatient (RCR) | payer MEDICARE, MEDICAID, SELFPAY ==
--- NOTE | 2024-06-26 08:28 | MHC.OT.EP ---
[address] [phone] Occupational Therapy Plan of Care Patient Name: Tosin Gonzalez Date of Evaluation: 06/25/24 Diagnosis: Pain Location: B hands Pain Score: 8 Pain Scale Used: Numeric (0 - 10) Aggravating Factors: cannot quantify; they hurt all the time and keep me up at night Alleviating Factors: None ; trialed heat and manual therapy today to decrease edema in R hand ; decreased edema .5 cm pt. educated to get a heating pad Assessment: Pt is a 78 yr old R hand dominant female w/ sx's of b CTS and B trigger fingers of B 3rd digits. She had a nerve conduction study which showed severe CT in B wrist/hand and L neuropathy. Pt reports difficulty w/ sleeping, writing, and performing ADLS due to pain and edema in her hands. She denies bracing her hands/ wrist at night and does not feel performing this or attending OT Therapy would be effective at this point. She was evaluated today and we reviewed her EMG results together. We discussed her Dx, edema, diminished protective sensation in B hands, trigger fingers :Oval 8's were given to her for wear (removing for skin integrity daily and showering) , for 3rd digits B hands. She would like to follow up w/ MD and discuss surgical options and OT is in agreemnt w/ this plan at this time. 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 She does not feel OT is appropriate at this time due to the severity of her sx's , OT is in agreement. Electronically Signed By: Pina Benitez OTR/L Please Sign and return to therapist. Thank you once again for your referral.
== END 2025-01-07 10:59 | disposition home or self-care (01) ==
LOC: HO.OT 12:48
PROVIDERS: PCP Internal Medicine
DX: M25.641 Stiffness of right hand, not elsewhere classified (principal); M25.642 Stiffness of left hand, not elsewhere classified
CPT/HCPCS: 97166; 97535; 97760

== ENCOUNTER 2024-07-08 13:11 | Outpatient (AMB) | payer MEDICARE, MEDICAID, SELFPAY ==
--- NOTE | 2024-07-08 13:21 | MHC.OFFVIS ---
Vital Signs 07/08/24 13:24 Height 5 ft 5 in Weight 134 lb BMI 22.3 Handedness Right Intake Visit Reasons: OV- B/L hand EMG review, discuss surgery Intake Note: Tosin is a 78 year old right hand dominant female who presents today for an EMG review of her bilateral hand numbness and tingling. EMG done on 06/18/24. She said there was no nerve in her right arm so they did not complete the test. Hx of DM. Allergies codeine Allergy (Verified 07/08/24 13:25) Unconscious hydromorphone [From Dilaudid] Allergy (Verified 07/08/24 13:25) Unconscious morphine Allergy (Verified 07/08/24 13:25) Unconscious povidone-iodine [From Betadine] Allergy (Verified 07/08/24 13:25) Unknown shellfish derived Allergy (Verified 07/08/24 13:25) Unknown soap [From Betadine] Allergy (Verified 07/08/24 13:25) Unknown HPI HPI OV- B/L hand EMG review, discuss surgery: Details: Patient is an 78-year-old female who presents for bilateral hand EMG review and for discussion of potential surgical treatment options. Today, the patient reports that her numbness and tingling have worsened, and then she now has associated weakness that has caused her to drop several plates in the last couple of weeks. The patient reports that since the EMG and nerve conduction study she feels her symptoms have worsened, although she is unsure if this is actually due to this study. No other acute complaints or concerns at this time. [facility] Medical History (Updated 07/08/24 @ 14:57 by BRAYAN Esparza) HTN (hypertension) Cervical cancer Thyroid cancer Breast cancer Diabetes Surgical History (Updated 12/05/23 @ 14:12 by Lianet Vogt CMA) History of hip surgery Status post partial removal of lung H/O: hysterectomy H/O mastectomy Social History (Updated 12/05/23 @ 14:11 by Lianet Vogt CMA) Patient Tobacco Use Status: Never used Tobacco Current occupational status: retired 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 Review of Systems Const All systems reviewed & are unremarkable except as noted in HPI and below Physical Exam Vital Signs: BMI result Body Mass Index 22.3 Extrem Other: Patient is alert, oriented, and in no acute distress. Neuro: Patient reports diminished sensation of the tips of all digits of the right hand at this time Patient does report normal sensation of the tips of all digits of the left hand at this time. Vascular: Cap refill brisk bilaterally Pain: Patient reports significant tenderness to palpation about the bilateral thumbs, particularly at the level of the basal joint The patient also reports tenderness to palpation at the level of the A1 sachin of bilateral middle fingers ROM: With encouragement, the patient is able to get close to a closed fist on the right Patient is able to make a closed fist on the left without difficulty There is visible and palpable locking and catching of the right middle finger No visible or palpable locking and catching of the left middle finger at this time Skin: No lacerations or abrasions. General: No ecchymosis, erythema, or evidence of infection. Psych: Appears grossly normal Affect normal Attitude cooperative Results Reviewed Results Reviewed: IMPRESSION: 1. This is an abnormal study. 2. There is electrodiagnostic evidence for right severe and left moderate-severe median neuropathy at the wrist, consistent with carpal tunnel syndrome. 3. There is electrodiagnostic evidence for left ulnar neuropathy, suspect at the elbow. Mouna Beach MD, CHRISTINE Assessment & Plan Assessment & Plan (1) Trigger finger, left middle finger: Code(s): M65.332 - Trigger finger, left middle finger Category: Medical (2) Trigger finger, right middle finger: Code(s): M65.331 - Trigger finger, right middle finger Category: Medical (3) Carpal tunnel syndrome, bilateral: Code(s): G56.03 - Carpal tunnel syndrome, bilateral upper limbs Category: Medical (4) Cubital tunnel syndrome on left: Code(s): G56.22 - Lesion of ulnar nerve, left upper limb Category: Medical Plan 1. Carpal tunnel syndrome, bilateral 2. Cubital tunnel syndrome, left 3. Trigger finger, bilateral middle fingers Symptoms constant, daily, worse at night Patient is educated about these conditions Patient is educated about the typical recovery course The patient would like to proceed with surgical intervention at this time, however her last A1c was 9.7, so we are unable to perform surgery at this time due to concerns for wound healing Patient is also informed that due to her poor diabetes control, we also can not do any steroid injections at this time, due to the risk of blood sugar spikes to dangerous levels, as she reports that her blood sugar was approximately 1200 recently Patient was initially frustrated by this, but understands after explanation Patient will be following up with endocrinology in a few weeks, and if her A1c has improved to approximately 8, she can call our office to make another appointment to be signed up for surgery Patient understands this and is amenable to this plan Patient will follow-up as needed with any acute concerns Coding Level of Care Code Est Pt Level 3 (13439) Diagnoses Trigger finger, left middle finger M65.332 Trigger finger, right middle finger M65.331 Carpal tunnel syndrome, bilateral G56.03 Cubital tunnel syndrome on left G56.22
[2024-07-08 13:24] VITALS: BMI 22.3
== END 2024-07-08 13:58 | disposition home or self-care (01) ==
DX: M65.332 Trigger finger, left middle finger (principal); M65.331 Trigger finger, right middle finger; G56.03 Carpal tunnel syndrome, bilateral upper limbs; G56.22 Lesion of ulnar nerve, left upper limb; E11.65 Type 2 diabetes mellitus with hyperglycemia
CPT/HCPCS: 99213

== ENCOUNTER → 2024-07-08 13:11 | Outpatient (BNVA) | payer MEDICARE, MEDICAID, SELFPAY | DX: M65.332 Trigger finger, left middle finger (principal); M65.331 Trigger finger, right middle finger; G56.03 Carpal tunnel syndrome, bilateral upper limbs; G56.22 Lesion of ulnar nerve, left upper limb | CPT/HCPCS: 99212 ==

== ENCOUNTER 2024-08-18 11:17 | Outpatient (AMB) | payer MEDICARE, MEDICAID, SELFPAY ==
--- NOTE | 2024-08-18 11:22 | A.OFFVIS_ITS ---
Vital Signs 08/18/24 11:34 Height 5 ft 5 in Weight 134 lb BMI 22.3 Intake Visit Reasons: OV-right hip pain Intake Note: Tosin is a 78 year old female who presents with complaints of intermittent discomfort along the lateral aspect of her right hip after undergoing right hip open reduction and internal fixation surgery with placement of a short gamma nail at another facility on 12/05/2023. She denies any fevers or chills. She continues to walk with a rolling walker. She continues to go to outpatient formal physical therapy. Allergies codeine Allergy (Verified 08/18/24 11:34) Unconscious hydromorphone [From Dilaudid] Allergy (Verified 08/18/24 11:34) Unconscious morphine Allergy (Verified 08/18/24 11:34) Unconscious povidone-iodine [From Betadine] Allergy (Verified 08/18/24 11:34) Unknown shellfish derived Allergy (Verified 08/18/24 11:34) Unknown soap [From Betadine] Allergy (Verified 08/18/24 11:34) Unknown Medication List - Last Reconciled 08/18/24 by Ruy Cedeño MD alendronate 70 mg PO QWEEK amlodipine 2.5 mg PO DAILY apixaban (Eliquis) 2.5 mg PO BID furosemide 20 mg PO BID insulin aspart U-100 (Novolog U-100 Insulin aspart) subcut levothyroxine 125 mcg PO DAILY lisinopril 5 mg PO DAILY nitroglycerin 0 mg sublingual sub-q insulin device, 20 unit (V-GO 20 device) As directed [facility] Medical History HTN (hypertension) Cervical cancer Thyroid cancer Breast cancer Diabetes Surgical History History of hip surgery Status post partial removal of lung H/O: hysterectomy H/O mastectomy Social History Patient Tobacco Use Status: Never used Tobacco Current occupational status: retired 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 Gonzalez continues to do well after undergoing open reduction and internal fixation of her right hip fracture with placement of a short gamma nail performed at another facility on 12/05/2023. She will continue going to formal physical therapy for now. She will gradually transition to a home exercise program. She will contact me prior to her follow-up appointment in 3 months should any questions or concerns arise. Feel free to call me at any time should questions regarding her orthopedic management arise. I spent 21 minutes in reviewing the patient's records and imaging studies, seeing the patient and documenting in the medical record. Coding Level of Care Code Est Pt Level 3 (18346) Complex EM visit Add On G2211 Diagnoses Right hip pain M25.551
[2024-08-18 11:34] VITALS: BMI 22.3
== END 2024-08-18 11:58 | disposition home or self-care (01) ==
PROVIDERS: PCP Internal Medicine; Visit Provider Orthopaedic Surgery
DX: M25.551 Pain in right hip (principal)
CPT/HCPCS: 99213; G2211

== ENCOUNTER → 2024-08-18 11:17 | Outpatient (BNVA) | payer MEDICARE, MEDICAID, SELFPAY | PROVIDERS: PCP Internal Medicine; Visit Provider Orthopaedic Surgery | DX: M25.551 Pain in right hip (principal) | CPT/HCPCS: 99212 ==

== ENCOUNTER 2024-09-09 12:35 | Outpatient (AMB) | payer MEDICARE, MEDICAID, SELFPAY ==
--- OUTSIDE RECORDS SUMMARY | 2024-09-09 12:37 | XMS_ITS | Clinical Summary ---
Author Organization Unknown Care Team Providers Care Gin Inspector Name Role Phone TATUM LLAMASTATE, YAMILE Unavailable Unavail able MARYA MECHANICAL ENGINEER, SARAHY Unavailable Unavailable SANYA PT, TONI Unavailable Unavailable DANG RN, GLORIA Unavailable Unavailable Payers Payer Name Policy Type Policy Number Effective Date Expira tion Date MEDICARE.[facility].PDGM [id number] Problems Condition Name Condition Details Condition Category Status Onset Date Resolution Date Last Treatment Date Treating Clinician Comments TYPE 1 DIABETES MELLITUS WITH HYPERGLYCEMI A Active 6 00:00: 00 UNSPECIFIED ATRIAL FIBRILLATION Active 4-05 00:00: 00 HYPERTENSIVE CHRONIC KIDNEY DISEASE W STG 1-4/UNSP CHR KDNY Active 1- 00:00: 00 TYPE 1 DIABETES MELLITUS W DIABETIC CHRONIC KIDNEY DISEASE Active 09-23 00:00: 00 CHRONIC KIDNEY DISEASE, STAGE 4 (SEVERE) Active 09-23 00:00: 00 CELIAC DISEASE Active - 00:00: 00 TYPE 1 DIABETES WITH STABLE PROLIF DIABETIC RTNOP, BILATERAL Active 09-23 00:00: 00 TYPE 1 DIABETES MELLITUS WITH DIABETIC NEUROPATHY, UNSP Active 09-23 00:00: 00 TYPE 1 DIABETES MELLITUS WITH OTH CIRCULATORY COMPLICATION S Active 09-23 00:00: 00 PULMONARY HYPERTENSION , UNSPECIFIED Active 09-23 00:00: 00 AGE-RELATED OSTEOPOROSIS W/O CURRENT PATHOLOGICAL FRACTURE Active - 00:00: 00 DEPRESSION, UNSPECIFIED Active 09-23 00:00: 00 HYPOTHYROIDI SM, UNSPECIFIED Active 1- 00:00: 00 HYPERLIPIDEM IA, UNSPECIFIED Active 09-23 00:00: 00 HISTORY OF FALLING Active 12-26 00:00: 00 PRESENCE OF INSULIN PUMP (EXTERNAL) (INTERNAL) Active 12-26 00:00: 00 NAILHEAD PUNCHER (CURRENT) USE OF ASPIRIN Active 12-26 00:00: 00 PERSONAL HISTORY OF MALIGNANT NEOPLASM OF BREAST Active 09-23 00:00: 00 PRSNL HX OF TIA (TIA), AND CEREB INFRC W/O RESID DEFICITS Active 09-23 00:00: 00 PERSONAL HISTORY OF OTHER VENOUS THROMBOSIS AND EMBOLISM Active 09-23 00:00: 00 Allergies, Adverse Reactions, Alerts Allergy Name Allergy Type Status Severity Reaction(s) Onset Date Inactive Date Treating Clinician Comments DILAUDID Propensity to adverse reactions Active 12-21 15:26: 09 GLUTEN Propensity to adverse reactions Active 12-21 15:26: 22 MORPHINES Propensity to adverse reactions Active 12-21 15:26: 31 CODEINE Propensity to adverse reactions Active 12-21 15:26: 39 SHELLFISH. Propensity to adverse reactions Active 12-21 15:26: 48 Medications Ordered Medication Name Filled Medication Name Start Date Stop Date Current Medication? Ordering Clinician Indication Dosage Frequency Signature (SIG) Comments Components mirtazapine 15 mg tablet 11-24 00:00: 00 01-11 00:00 :00 No [id number] Per instruc tions AT BEDTIME Per instructio ns AT BEDTIME (route: oral) Med Classific ation: Central Nervous System Agents escitalopra m 5 mg tablet 12-05 00:00: 00 01-11 00:00 :00 No [id number] Per instruc tions EVERY DAY Per instructio ns EVERY DAY (route: oral) Med Classific ation: Central Nervous System Agents pregabalin 50 mg capsule 11-24 00:00: 00 01-11 00:00 :00 No [id number] Per instruc tions DAILY Per instructio ns DAILY (route: oral) Med Classific ation: Central Nervous System Agents Lantus U-100 Insulin 100 unit/mL subcutaneou s solution 09-27 00:00: 00 03-08 23:59 :00 No [id number] DM Per instruc tions SUBCUTANEO USLY AT BEDTIME Per instructio ns SUBCUTANEO USLY AT BEDTIME (route: subcutaneo us) Med Classific ation: Endocrine Novolog U-100 Insulin aspart 100 unit/mL subcutaneou s solution 12-18 00:00: 00 01-11 00:00 :00 No [id number] Per instruc tions SUBCUTANEO USLY 3 TIMES A DAY Per instructio ns SUBCUTANEO USLY 3 TIMES A DAY (route: subcutaneo us) Med Classific ation: Endocrine V-GO 30 device 12-08 00:00: 00 01-11 00:00 :00 No [id number] Per instruc tions Per instructio ns (route: miscellane ous) Med Classific ation: Medical Supplies and Durable Medical Equipment (DME) V-GO 20 device 12-18 00:00: 00 01-11 00:00 :00 No [id number] Per instruc tions Per instructio ns (route: miscellane ous) Med Classific ation: Medical Supplies and Durable Medical Equipment (DME) amlodipine 5 mg tablet 01-11 00:00: 00 12-20 23:59 :00 No [id number] HTN 1 tablet DAILY 1 tablet DAILY (route: oral) Med Classific ation: Cardiovas cular Therapy Agents Aspirin Low Dose 81 mg tablet,anne yed release 01-11 00:00: 00 12-20 23:59 :00 No [id number] HEART HEALTH 1 tablet DAILY 1 tablet DAILY (route: oral) Med Classific ation: Hematolog ical Agents ergocalcife rol (vitamin D2) 1,250 mcg (50,000 unit) capsule 01-11 00:00: 00 12-20 23:59 :00 No [id number] SUPPLEMENT 1 capsule DAILY 1 capsule DAILY (route: oral) Med Classific ation: Electroly te Balance-N utritiona l Products furosemide 40 mg tablet 01-11 00:00: 00 03-08 23:59 :00 No [id number] HTN 1 tablet DAILY 1 tablet DAILY (route: oral) Med Classific ation: Cardiovas cular Therapy Agents insulin lispro (U-100) 100 unit/mL subcutaneou s solution 01-11 00:00: 00 03-08 23:59 :00 No [id number] DM Per instruc tions 3 TIMES DAILY Per instructio ns 3 TIMES DAILY (route: subcutaneo ) Med Classific ation: Endocrine levothyroxi ne 125 mcg tablet 01-11 00:00: 00 12-20 23:59 :00 No [id number] THYROID 1 tablet DAILY 1 tablet DAILY (route: oral) Med Classific ation: Endocrine magnesium 200 mg (as magnesium oxide) tablet 01-11 00:00: 00 03-08 23:59 :00 No [id number] SUPPLEMENT 1 tablet DAILY 1 tablet DAILY (route: oral) Med Classific ation: Electroly te Balance-N utritiona l Products multivitami n tablet 01-11 00:00: 00 12-20 23:59 :00 No [id number] SUPPLEMENT 1 tablet DAILY 1 tablet DAILY (route: oral) Med Classific ation: Electroly te Balance-N utritiona l Products omeprazole 40 mg capsule,del ayed release 01-11 00:00: 00 12-20 23:59 :00 No [id number] GERD 1 capsule DAILY 1 capsule DAILY (route: oral) Med Classific ation: Gastroint estinal Therapy Agents insulin lispro (U-100) 100 unit/mL subcutaneou s solution 03-12 00:00: 00 12-20 23:59 :00 No [id number] PUMP FAILURE Per instruc tions DIRECTED Per instructio ns [facility]ED [facility] Med Classific ation: Endocrine insulin lispro (U-100) 100 unit/mL subcutaneou s solution 03-12 00:00: 00 12-20 23:59 :00 No [id number] DIABETES Per instruc tions 3 TIMES DAILY Per instructio ns 3 TIMES DAILY (route: subcutaneo ) Med Classific ation: Endocrine Lantus U-100 Insulin 100 unit/mL subcutaneou s solution 20 00:00: 00 12-20 23:59 :00 No [id number] FAILURE OF PUMP 20 unit DIRECTED 20 unit DIRECTED (route: [facility]) Med Classific ation: Endocrine furosemide 40 mg tablet 03-09 00:00: 00 12-20 23:59 :00 No [id number] EDEMA 1 tablet 2 TIMES DAILY 1 tablet 2 TIMES DAILY (route: oral) Med Classific ation: Cardiovas cular Therapy Agents magnesium 400 mg (as magnesium oxide) tablet 16 00:00: 00 12-20 23:59 :00 No [id number] SUPPLEMENT 1 tablet 2 TIMES DAILY 1 tablet 2 TIMES DAILY (route: oral) Med Classific ation: Electroly te Balance-N utritiona l Products Probiotic Blend 2 billion cell-50 mg capsule 03-29 00:00: 00 03-29 23:59 :00 No [id number] SUPPLEMENT 2 capsule DAILY 2 capsule DAILY (route: oral) Med Classific ation: Gastroint estinal Therapy Agents amlodipine 5 mg tablet 12-09 00:00: 00 12-22 23:59 :00 No [id number] CARDIAC 1 tablet DAILY 1 tablet DAILY (route: oral) Med Classific ation: Cardiovas cular Therapy Agents furosemide 40 mg tablet 12-09 00:00: 00 12-22 23:59 :00 No [id number] HEART FAILURE 0.5 tablet 2 TIMES DAILY 0.5 tablet 2 TIMES DAILY (route: oral) Med Classific ation: Cardiovas cular Therapy Agents levothyroxi ne 125 mcg tablet 12-09 00:00: 00 Yes [id number] HYPOTHYROID ISM 1 tablet DAILY 1 tablet DAILY (route: oral) Med Classific ation: Endocrine V-GO 20 device -15 00:00: 00 Yes [id number] DIABETES Per instruc tions DAILY Per instructio ns DAILY (route: miscellane ous) Med Classific ation: Medical Supplies and Durable Medical Equipment (DME) Adult Aspirin Regimen 81 mg tablet,anne yed release 12-22 00:00: 00 02-15 23:59 :00 No [id number] BLOOD THINNER 1 tablet DAILY 1 tablet DAILY (route: oral) Med Classific ation: Hematolog ical Agents Vitamin D2 1,250 mcg (50,000 unit) capsule 12-22 00:00: 00 Yes [id number] SUPPLEMENT 1 capsule WEEKLY 1 capsule WEEKLY (route: oral) Med Classific ation: Electroly te Balance-N utritiona l Products ferrous sulfate 325 mg (65 mg iron) tablet,anne yed release 12-22 00:00: 00 Yes [id number] SUPPLEMENT 1 tablet DAILY 1 tablet DAILY (route: oral) Med Classific ation: Electroly te Balance-N utritiona l Products magnesium 400 mg (as magnesium oxide) tablet 12-22 00:00: 00 Yes [id number] SUPPLEMENT 1 tablet 2 TIMES DAILY 1 tablet 2 TIMES DAILY (route: oral) Med Classific ation: Electroly te Balance-N utritiona l Products Hair,Skin and Nails tablet 12-22 00:00: 00 Yes [id number] SUPPLEMENT 1 tablet DAILY 1 tablet DAILY (route: oral) Med Classific ation: Electroly te Balance-N utritiona l Products nitroglycer in 0.4 mg sublingual tablet 12-22 00:00: 00 Yes [id number] CHEST PAIN 1 tablet EVERY 5 MINUTES TIMES 3 1 tablet EVERY 5 MINUTES TIMES 3 (route: sublingual ) Med Classific ation: Cardiovas cular Therapy Agents furosemide 20 mg tablet 01-08 00:00: 00 Yes [id number] EDEMA 1 tablet 2 TIMES DAILY 1 tablet 2 TIMES DAILY (route: oral) Med Classific ation: Cardiovas cular Therapy Agents Eliquis 2.5 mg tablet 01-24 00:00: 00 Yes [id number] ANTICOAGULA TION Per instruc tions 2 TIMES DAILY Per instructio ns 2 TIMES DAILY (route: oral) Med Classific ation: Hematolog ical Agents lisinopril 10 mg tablet 02-15 00:00: 00 02-22 23:59 :00 No [id number] HTN 1 tablet DAILY 1 tablet DAILY (route: oral) Med Classific ation: Cardiovas cular Therapy Agents lisinopril 5 mg tablet 02-24 00:00: 00 Yes [id number] HTN 1 tablet DAILY 1 tablet DAILY (route: oral) Med Classific ation: Cardiovas cular Therapy Agents benzonatate 100 mg capsule 02-24 00:00: 00 02-27 23:59 :00 No [id number] COUGH 1 capsule 3 TIMES DAILY 1 capsule 3 TIMES DAILY (route: oral) Med Classific ation: Respirato ry Therapy Agents DOXYCYCLINE HYCLATE ORAL 01-27 00:00: 00 02-07 00:00 :00 No 100 mg1 tablet 2 TIMES DAILY 100 mg1 tablet 2 TIMES DAILY (route: ) Med Classific ation: ANTI-INFE CTIVE AGENTS Vital Signs Vital Name Observation Time Observation Value Commen ts Temperature 2023-04-18 12:45:00.000 98.6 [degF] Temperature 2023-04-16 10:38:00.000 97.2 [degF] Temperature 2023-04-04 12:01:00.000 97.3 [degF] Temperature 2023-04-01 10:10:00.000 97.3 [degF] Temperature 2023-03-22 13:06:00.000 97.2 [degF] Temperature 2023-03-18 11:58:00.000 97 [degF] Temperature 2023-03-18 11:14:00.000 96.9 [degF] Temperature 2023-03-14 19:54:00.000 97.2 [degF] Temperature 2023-03-11 11:35:00.000 97.7 [degF] Temperature 2023-03-07 21:09:00.000 97.2 [degF] Temperature 2023-03-04 08:25:00.000 97.3 [degF] Temperature 2023-02-25 11:43:00.000 97.7 [degF] Pulse 2023-04-18 12:45:00.000 80 /min Pulse 2023-04-16 10:38:00.000 72 /min Pulse 2023-04-04 12:01:00.000 68 /min Pulse 2023-04-01 10:10:00.000 70 /min Pulse 2023-03-22 13:06:00.000 60 /min Pulse 2023-03-18 11:58:00.000 71 /min Pulse 2023-03-18 11:14:00.000 80 /min Pulse 2023-03-14 19:54:00.000 80 /min Pulse 2023-03-11 11:35:00.000 74 /min Pulse 2023-03-07 21:09:00.000 80 /min Pulse 2023-03-04 08:25:00.000 60 /min O2 Saturation (%) 2023-04-16 10:38:00.000 99 % O2 Saturation (%) 2023-04-01 10:10:00.000 99 % O2 Saturation (%) 2023-03-22 13:06:00.000 98 % O2 Saturation (%) 2023-03-18 11:58:00.000 98 % O2 Saturation (%) 2023-03-18 11:14:00.000 96 % O2 Saturation (%) 2023-03-14 19:54:00.000 98 % O2 Saturation (%) 2023-03-11 11:35:00.000 100 % O2 Saturation (%) 2023-03-04 08:25:00.000 98 % O2 Saturation (%) 2023-02-25 11:43:00.000 97 % Respirations 2023-04-18 12:45:00.000 18 /min Respirations 2023-04-16 10:38:00.000 18 /min Respirations 2023-04-04 12:01:00.000 18 /min Respirations 2023-04-01 10:10:00.000 18 /min Respirations 2023-03-22 13:06:00.000 18 /min Respirations 2023-03-18 11:58:00.000 18 /min Respirations 2023-03-18 11:14:00.000 18 /min Respirations 2023-03-14 19:54:00.000 18 /min Respirations 2023-03-11 11:35:00.000 18 /min Respirations 2023-03-07 21:09:00.000 18 /min Respirations 2023-03-04 08:25:00.000 18 /min Respirations 2023-02-25 11:43:00.000 18 /min Weight (lbs) 2023-04-16 10:38:00.000 159 [lb_av] Weight (lbs) 2023-04-04 12:01:00.000 148 [lb_av] Weight (lbs) 2023-03-22 13:06:00.000 164 [lb_av] Weight (lbs) 2023-03-14 19:54:00.000 160 [lb_av] Systolic Blood Pressure 2023-04-18 12:45:00.000 124 mm [Hg] Systolic Blood Pressure 2023-04-16 10:38:00.000 118 mm [Hg] Systolic Blood Pressure 2023-04-04 12:01:00.000 130 mm [Hg] Systolic Blood Pressure 2023-04-01 10:10:00.000 110 mm [Hg] Systolic Blood Pressure 2023-03-22 13:06:00.000 110 mm [Hg] Systolic Blood Pressure 2023-03-18 11:58:00.000 128 mm [Hg] Systolic Blood Pressure 2023-03-18 11:14:00.000 118 mm [Hg] Systolic Blood Pressure 2023-03-14 19:54:00.000 138 mm [Hg] Systolic Blood Pressure 2023-03-11 11:35:00.000 178 mm [Hg] Systolic Blood Pressure 2023-03-07 21:09:00.000 136 mm [Hg] Systolic Blood Pressure 2023-03-04 08:25:00.000 130 mm [Hg] Systolic Blood Pressure 2023-02-25 11:50:00.000 173 mm [Hg] Diastolic Blood Pressure 2023-04-18 12:45:00.000 60 mm [Hg] Diastolic Blood Pressure 2023-04-16 10:38:00.000 62 mm [Hg] Diastolic Blood Pressure 2023-04-04 12:01:00.000 74 mm [Hg] Diastolic Blood Pressure 2023-04-01 10:10:00.000 60 mm [Hg] Diastolic Blood Pressure 2023-03-22 13:06:00.000 60 mm [Hg] Diastolic Blood Pressure 2023-03-18 11:58:00.000 76 mm [Hg] Diastolic Blood Pressure 2023-03-18 11:14:00.000 68 mm [Hg] Diastolic Blood Pressure 2023-03-14 19:54:00.000 78 mm [Hg] Diastolic Blood Pressure 2023-03-11 11:35:00.000 90 mm [Hg] Diastolic Blood Pressure 2023-03-07 21:09:00.000 70 mm [Hg] Diastolic Blood Pressure 2023-03-04 08:25:00.000 68 mm [Hg] Diastolic Blood Pressure 2023-02-25 11:50:00.000 83 mm [Hg] Plan of Treatment Planned Activity Planned Date Details Comments Future Scheduled Test SKILLED NU RSE TO ASSESS, EVALUATE, AND DEVELOP AN INDIVIDUALIZED PLAN OF CARE. AGENCY MAY ACCEPT ORDERS FROM CONSULTING PHYSICIANS SN TO OBSERVE/ASSESS RISK FOR FALLS AND INSTRUCT IN FALL PREVENTION, HOME SAFETY, MEDICATION MANAGEMENT, INFECTION PREVENTION, AND NUTRITION MANAGEMENT. SN MAY PERFORM O2 SATURATION LEVEL ON ADMISSION AND PRN TO ASSESS PATIENT, WITH NOTIFICATION TO THE PHYSICIAN IF SATURATION IS 90% IN THE ABSENCE OF MORE SPECIFIC PARAMETERS FROM THE PHYSICIAN. AGENCY MAY PERFORM A RESUMPTION OF CARE VISIT FOLLOWING ANY HOSPITAL ADMISSION. SKILLED NURSE TO ASSESS/EVALUATE CO-MORBID CONDITIONS AND ANY NEW CONDITIONS THAT PRESENT THEMSELVES DURING THIS EPISODE TO IDENTIFY CHANGES AND INTERVENE TO MINIMIZE COMPLICATIONS. [code = SKILLED NURSE TO ASSESS, EVALUATE, AND DEVELOP AN INDIVIDUALIZED PLAN OF CARE. AGENCY MAY ACCEPT ORDERS FROM CONSULTING PHYSICIANS SN TO OBSERVE/ASSESS RISK FOR FALLS AND INSTRUCT IN FALL PREVENTION, HOME SAFETY, MEDICATION MANAGEMENT, INFECTION PREVENTION, AND NUTRITION MANAGEMENT. SN MAY PERFORM O2 SATURATION LEVEL ON ADMISSION AND PRN TO ASSESS PATIENT, WITH NOTIFICATION TO THE PHYSICIAN IF SATURATION IS 90% IN THE ABSENCE OF MORE SPECIFIC PARAMETERS FROM THE PHYSICIAN. AGENCY MAY PERFORM A RESUMPTION OF CARE VISIT FOLLOWING ANY HOSPITAL ADMISSION. SKILLED NURSE TO ASSESS/EVALUATE CO-MORBID CONDITIONS AND ANY NEW CONDITIONS THAT PRESENT THEMSELVES DURING THIS EPISODE TO IDENTIFY CHANGES AND INTERVENE TO MINIMIZE COMPLICATIONS.] Future Scheduled Test RISK FOR H OSPITALIZATION; SKILLED NURSE TO INSTRUCT PATIENT/CAREGIVER ON RISK FOR HOSPITALIZATION/EMERGENCY ROOM VISITS, TEACH SIGNS AND SYMPTOMS THAT PUT PATIENT AT RISK, WHEN TO NOTIFY NURSE/PHYSICIAN OF COMPLICATIONS/DECLINE, AND WHEN TO CALL 911. [code = RISK FOR HOSPITALIZATION; SKILLED NURSE TO INSTRUCT PATIENT/CAREGIVER ON RISK FOR HOSPITALIZATION/EMERGENCY ROOM VISITS, TEACH SIGNS AND SYMPTOMS THAT PUT PATIENT AT RISK, WHEN TO NOTIFY NURSE/PHYSICIAN OF COMPLICATIONS/DECLINE, AND WHEN TO CALL 911.] Future Scheduled Test MEDICATION MANAGEMENT; SKILLED NURSE TO REVIEW MEDICATIONS FOR INTERACTIONS, EFFECTIVENESS OF DRUG THERAPY, AND SIGNS/SYMPTOMS OF ADVERSE REACTIONS. MAY INSTRUCT AND REINFORCE MEDICATION TEACHING RELATED TO THE USE OF MEDICATIONS, DOSAGE, FREQUENCY, PURPOSE, SIDE EFFECTS, AND TO REPORT COMPLICATIONS. [code = MEDICATION MANAGEMENT; SKILLED NURSE TO REVIEW MEDICATIONS FOR INTERACTIONS, EFFECTIVENESS OF DRUG THERAPY, AND SIGNS/SYMPTOMS OF ADVERSE REACTIONS. MAY INSTRUCT AND REINFORCE MEDICATION TEACHING RELATED TO THE USE OF MEDICATIONS, DOSAGE, FREQUENCY, PURPOSE, SIDE EFFECTS, AND TO REPORT COMPLICATIONS. ] Future Scheduled Test PAIN MANAG EMENT; SKILLED NURSE TO OBSERVE, ASSESS, AND PROVIDE EDUCATION ON PAIN MANAGEMENT TECHNIQUES. [code = PAIN MANAGEMENT; SKILLED NURSE TO OBSERVE, ASSESS, AND PROVIDE EDUCATION ON PAIN MANAGEMENT TECHNIQUES.] Future Scheduled Test DIABETES M ANAGEMENT; SKILLED NURSE FOR INSTRUCTIONS OF DIABETIC CARE TO INCLUDE: DIET GLUTEN FREE, LOW SODIUM SKIN CARE, SIGNS AND SYMPTOMS OF HYPO/HYPERGLYCEMIA, PROPER ADMINISTRATION OF DIABETIC MEDICATION. SKILLED NURSE TO INSTRUCT ON DIABETIC FOOT CARE AND MONITOR FOR SKIN LESIONS ON LOWER EXTREMITIES. BLOOD GLUCOSE TESTING 4 X DAY SKILLED NURSE TO ASSESS PATIENT/CAREGIVER ABILITY TO PERFORM AND RECORD BLOOD GLUCOSE TESTING ORDERED AND TO REPORT ABNORMAL FINDINGS TO PHYSICIAN. SKILLED NURSE MAY PERFORM BLOOD GLUCOSE TEST NEEDED. SKILLED NURSE TO REPORT TO PHYSICIAN BLOOD GLUCOSE READINGS GREATER THAN 350 OR LESS THAN 70 SKILLED NURSE TO INSTRUCT PATIENT ON IMPORTANCE OF HGBA1C MONITORING, KIDNEY FUNCTION TEST, EYE AND FOOT EXAMS. [code = DIABETES MANAGEMENT; SKILLED NURSE FOR INSTRUCTIONS OF DIABETIC CARE TO INCLUDE: DIET GLUTEN FREE, LOW SODIUM SKIN CARE, SIGNS AND SYMPTOMS OF HYPO/HYPERGLYCEMIA, PROPER ADMINISTRATION OF DIABETIC MEDICATION. SKILLED NURSE TO INSTRUCT ON DIABETIC FOOT CARE AND MONITOR FOR SKIN LESIONS ON LOWER EXTREMITIES. BLOOD GLUCOSE TESTING 4 X DAY SKILLED NURSE TO ASSESS PATIENT/CAREGIVER ABILITY TO PERFORM AND RECORD BLOOD GLUCOSE TESTING ORDERED AND TO REPORT ABNORMAL FINDINGS TO PHYSICIAN. SKILLED NURSE MAY PERFORM BLOOD GLUCOSE TEST NEEDED. SKILLED NURSE TO REPORT TO PHYSICIAN BLOOD GLUCOSE READINGS GREATER THAN 350 OR LESS THAN 70 SKILLED NURSE TO INSTRUCT PATIENT ON IMPORTANCE OF HGBA1C MONITORING, KIDNEY FUNCTION TEST, EYE AND FOOT EXAMS.] Future Scheduled Test FALL REDUC TION MANAGEMENT; NURSING TO PROVIDE SKILLED ASSESSMENT, EDUCATION, AND INTERVENTION TO IDENTIFY FALL RISK FACTORS SUCH MEDICATIONS THAT MAY CAUSE DIZZINESS, CHRONIC DISEASES, PSYCHOLOGICAL FACTORS, AND EMPOWER/EDUCATE PATIENT/CAREGIVER TO MINIMIZE FALL RISK. [code = FALL REDUCTION MANAGEMENT; NURSING TO PROVIDE SKILLED ASSESSMENT, EDUCATION, AND INTERVENTION TO IDENTIFY FALL RISK FACTORS SUCH MEDICATIONS THAT MAY CAUSE DIZZINESS, CHRONIC DISEASES, PSYCHOLOGICAL FACTORS, AND EMPOWER/EDUCATE PATIENT/CAREGIVER TO MINIMIZE FALL RISK.] Future Scheduled Test AGENCY MAY PERFORM A RESUMPTION OF CARE VISIT FOLLOWING ANY HOSPITAL ADMISSION. PHYSICAL THERAPY TO EVALUATE, ASSESS AND MONITOR, PROVIDE SKILLED THERAPEUTIC INTERVENTION, ACTIVITY, EDUCATION, AND TRAINING TO ADDRESS: GAIT TRAINING (PT) NEUROMUSCULAR RE-EDUCATION / BALANCE RETRAINING (PT) THERAPEUTIC EXERCISES (PT) STAIR TRAINING (PT) OXYGEN SATURATION (PT). NOTIFY MD IF 02SATS BELOW 90% AFTER 10 MIN OF REST. DIABETES MANAGEMENT (PT) IDENTIFY FALL RISK FACTORS AND ESTABLISH HOME EXERCISE PROGRAM TO MINIMIZE FALL RISK. MAY TEACH THE PATIENT FLOOR RECOVERY WHEN CLINICALLY APPROPRIATE (PT) [code = AGENCY MAY PERFORM A RESUMPTION OF CARE VISIT FOLLOWING ANY HOSPITAL ADMISSION. PHYSICAL THERAPY TO EVALUATE, ASSESS AND MONITOR, PROVIDE SKILLED THERAPEUTIC INTERVENTION, ACTIVITY, EDUCATION, AND TRAINING TO ADDRESS: GAIT TRAINING (PT) NEUROMUSCULAR RE-EDUCATION / BALANCE RETRAINING (PT) THERAPEUTIC EXERCISES (PT) STAIR TRAINING (PT) OXYGEN SATURATION (PT). NOTIFY MD IF 02SATS BELOW 90% AFTER 10 MIN OF REST. DIABETES MANAGEMENT (PT) IDENTIFY FALL RISK FACTORS AND ESTABLISH HOME EXERCISE PROGRAM TO MINIMIZE FALL RISK. MAY TEACH THE PATIENT FLOOR RECOVERY WHEN CLINICALLY APPROPRIATE (PT)] Future Scheduled Test AGENCY MAY PERFORM A RESUMPTION OF CARE VISIT FOLLOWING ANY HOSPITAL ADMISSION. OCCUPATIONAL THERAPY TO EVALUATE, ASSESS, AND MONITOR, PROVIDE SKILLED THERAPEUTIC INTERVENTION, ACTIVITY, EDUCATION, AND TRAINING TO ADDRESS; WEAKNESS, IMPAIRED BALANCE, FALL PREVENTION, PAIN MANAGEMENT, FMC, DIABETES MANAGEMENT, HEART FAILURE MANAGEMENT. MODIFIED DAMON INDEX (OT) HEALTH MANAGEMENT- PHYSICAL ACTIVITY (OT) DIABETES SELF-MANAGEMENT - (OT) OXYGEN SATURATION (OT); NOTIFY MD IF O2 SATS BELOW 90% AFTER 10 MIN OF REST PAIN MANAGEMENT (OT) FALL REDUCTION (OT) HEART FAILURE EDUCATION (OT) [code = AGENCY MAY PERFORM A RESUMPTION OF CARE VISIT FOLLOWING ANY HOSPITAL ADMISSION. OCCUPATIONAL THERAPY TO EVALUATE, ASSESS, AND MONITOR, PROVIDE SKILLED THERAPEUTIC INTERVENTION, ACTIVITY, EDUCATION, AND TRAINING TO ADDRESS; WEAKNESS, IMPAIRED BALANCE, FALL PREVENTION, PAIN MANAGEMENT, FMC, DIABETES MANAGEMENT, HEART FAILURE MANAGEMENT. MODIFIED DAMON INDEX (OT) HEALTH MANAGEMENT- PHYSICAL ACTIVITY (OT) DIABETES SELF-MANAGEMENT - (OT) OXYGEN SATURATION (OT); NOTIFY MD IF O2 SATS BELOW 90% AFTER 10 MIN OF REST PAIN MANAGEMENT (OT) FALL REDUCTION (OT) HEART FAILURE EDUCATION (OT)] Goal 2023-02-06 Patient Goal - T O REMAIN HOME FROM THE HOSPITAL IN STABLE Goal 2023-04-18 Patient Goal - T O REMAIN HOME FROM THE HOSPITAL IN STABLE Goal 2023-02-22 Patient Goal - T O REMAIN HOME FROM THE HOSPITAL IN STABLE Goal Provider Goal - A PLAN OF CARE WILL BE ESTABLISHED THAT MEETS THE PATIENTS NEEDS. PATIENT WILL DEMONSTRATE OXYGEN SATURATION WITHIN NORMAL LIMITS OR PATIENTS OPTIMAL LEVEL ESTABLISHED BY THE PHYSICIAN THROUGHOUT CARE. CHANGES TO CO-MORBID CONDITIONS AND ANY NEW CONDITIONS WILL BE IDENTIFIED AND REPORTED TO THE PHYSICIAN. Goal Provider Goal - PATIENT/CAREGIVER WILL VERBALIZE UNDERSTANDING OF SIGNS AND SYMPTOMS THAT PUT THE PATIENT AT RISK FOR HOSPITALIZATION /EMERGENCY ROOM VISITS, WHEN TO NOTIFY NURSE/PHYSICIAN OF COMPLICATIONS/DECLINE AND WHEN TO CALL 911. Goal Provider Goal - PATIENT/CAREGIVER TO VERBALIZE, AND CONSISTENTLY DEMONSTRATE EFFECTIVE, SAFE MANAGEMENT OF MEDICATION INCLUDING KNOWLEDGE OF EFFECTIVENESS, POTENTIAL SIDE EFFECTS AND DRUG REACTIONS AND WHEN TO CONTACT THE APPROPRIATE CARE PROVIDER. PATIENT/CAREGIVER WILL BE ABLE TO VERBALIZE UNDERSTANDING OF MEDICATION REGIMEN AND ACCURATELY TAKE MEDICATIONS PRESCRIBED WITHOUT ADVERSE EFFECTS BY EOE. Goal Provider Goal - PATIENT / CAREGIVER WILL VERBALIZE / DEMONSTRATE UNDERSTANDING OF PAIN CONTROL MEASURES BY EOE Goal Provider Goal - PATIENT / CAREGIVER WILL VERBALIZE / DEMONSTRATE AN ABILITY TO ADHERE TO SELF-MANAGEMENT OF DIABETES MANAGEMENT BY EOE Goal Provider Goal - PATIENT/CAREGIVER ABLE TO IDENTIFY FALL RISK FACTORS AND IMPLEMENT STRATEGIES TO MINIMIZE FALL RISK. PATIENT/CAREGIVER WILL VERBALIZE/DEMONSTRATE AN ABILITY TO ADHERE TO FALL REDUCTION SELF MANAGEMENT AND LIFE-STYLE CHANGES AT DISCHARGE. PERSONAL GOAL(S) STATED BY PATIENT/CAREGIVER WILL BE MET BY EOE. Goal Provider Goal - PT STG: PATIENT WILL DEMONSTRATE INDEPENDENCE WITH HOUSEHOLD AMBULATION AT ROLLATOR LEVEL WITHIN 3 WEEKS PT LTG: PATIENT WILL DEMONSTRATE IMPROVED AMBULATION FROM CGA TO INDEPENDENT WITHOUT AD IN HOME AND WITH ROLLATOR OUTDOORS WITHIN 9 WEEKS PT LTG: PATIENT WILL DEMONSTRATE REDUCED FALL RISK EVIDENCED BY TUG TEST (CUT SCORE >11 SECONDS INDICATES INCREASED FALL RISK) IMPROVING FROM 24 SECONDS TO 13 SECONDS WITHIN 9 WEEKS PT STG: PATIENT WILL DEMONSTRATE INDEPENDENCE WITH PROGRESSED LOWER EXTREMITY HOME EXERCISE PROGRAM WITHIN 4 WEEKS PT LTG: PATIENT WILL DEMONSTRATE IMPROVED FUNCTIONAL STRENGTH EVIDENCED BY FIVE TIMES SIT TO STAND TEST (CUT SCORE >12 SECONDS INDICATES AN INCREASED FALL RISK) IMPROVING FROM 27 SECONDS TO 20 SECONDS WITHIN 9 WEEKS PT LTG: PATIENT WILL DEMONSTRATE INCREASED STRENGTH OF BILATERAL LES FROM 3+/5 TO 4/5 WITHIN9 WEEKS IN ORDER TO IMPROVE SAFETY AND STABILITY WITH GAIT AND STAIRS PT LTG: PATIENT WILL DEMONSTRATE IMPROVED ABILITY TO SAFELY NEGOTIATE STAIRS FROM CGA TO INDEPENDENT WITH RAIL AND ROLLATOR WITHIN 9 WEEKS PATIENT WILL MAINTAIN OXYGEN SATURATION WITHIN PHYSICIAN ORDERED PARAMETERS THROUGHOUT EPISODE OF CARE PATIENTS BLOOD SUGAR WILL REMAIN WELL CONTROLLED THROUGHOUT EPISODE OF CARE AND PATIENT WILL NOT HAVE ANY SIGNS OF SKIN BREAKDOWN OR COMPLICATIONS. PATIENT/CAREGIVER WILL DEMONSTRATE ADHERENCE TO FALL REDUCTION SELF MANAGEMENT TO MINIMIZE FALL BY END OF EPISODE. Goal Provider Goal - OT LTG: PATIENT WILL DEMONSTRATE IMPROVED INDEPENDENCE WITH ACTIVITIES OF DAILY LIVING (ADL) SKILLS EVIDENCED BY AN IMPROVEMENT IN MODIFIED DAMON INDEX SCORE FROM 91 TO 95 INDICATING DECREASED DEPENDENCY ON CAREGIVER ASSISTANCE WITHIN 5 WEEKS. OT STG: PATIENT WILL DEMONSTRATE IMPROVED UE HEP EVIDENCED BY INCORPORATING INTO SELF MANAGEMENT ROUTINE WITH SBA WITHIN 2 WEEKS. OT LTG: PATIENT/CG WILL DEMONSTRATE THE ABILITY TO COMPLETE A THERAPEUTIC TASK ORIENTED PROGRAM FOR B UES TO RESTORE PHYSICAL FUNCTION/HEALTH MANAGEMENT FROM MIN ASSIST TO INDEPENDENT ORDER TO COMPLETE IADLS WITHIN 5 WEEKS. PATIENT/CAREGIVER WILL BE ABLE TO IDENTIFY SIGNS OF HYPER- AND HYPOGLYCEMIA AND VERBALIZE HOW TO MANAGE SYMPTOMS. PATIENT WILL MAINTAIN OXYGEN SATURATION WITHIN PHYSICIAN ORDERED PARAMETERS THROUGHOUT THE EPISODE OF CARE. PATIENT WILL VERBALIZE UNDERSTANDING OF PAIN MANAGEMENT TECHNIQUES BY END OF EPISODE. PATIENT/CAREGIVER WILL BE ABLE TO IMPLEMENT OCCUPATIONAL THERAPY EDUCATION RECOMMENDATIONS SPECIFIC TO FALL REDUCTION FOR IMPROVED ADL/IADL COMPLETION AND HOME SAFETY BY END OF EPISODE. OT GOAL: PATIENT/CAREGIVER WILL INCORPORATE HEART FAILURE PATIENT EMPOWERMENT STRATEGIES INTO DAILY ROUTINE BY END OF EPISODE. Reason for Visit INDEPENDENT IN THE COMMUNITY Encounters Start Date/Time End Date/Time Encounter Type Admission Type Attending [facility] Care Department Encounter ID Discharge Date Discharge Status Discharge Condition Discharge Reason Percent Goals Met 2022-12-26 00:00:00 2023-04-18 00:00:00 [id number] 2023-04-18 00:00:00 DISCHARGE TO HOME OR SELF CARE INDEPENDEN T IN THE COMMUNITY HH OR PAL- GOALS MET 69.44
--- OUTSIDE RECORDS SUMMARY | 2024-09-09 12:37 | XMS_ITS | Clinical Summary ---
Author Organization Unknown Care Team Providers Care Cloth Measurer Name Role Phone TATUM INTERSTATE, YAMILE Unavailable Unavail able SANYA PT, TONI Unavailable Unavailable ROBERTO RN, LEX Unavailable Unavailable MARYA ANALYST GEOCHEMICAL PROSPECTING, SARAHY Unavailable Unavailable CONDINO LEGAL PROCESS SPECIALIST/SOUTH, GEETA Unavailable Unav ailable SPAFFORD OT, MICHELLE Unavailable Unavailable Payers Payer Name Policy Type Policy Number Effective Date Expira tion Date MEDICARE.[facility].PDGM [id number] Problems Condition Name Condition Details Condition Category Status Onset Date Resolution Date Last Treatment Date Treating Clinician Comments TYPE 2 DIABETES MELLITUS WITH DIABETIC NEPHROPATHY Active 12-05 00:00: 00 CERVICAL DISC DISORDER WITH MYELOPATHY, UNSP CERVICAL REGION Active 12-05 00:00: 00 GENERALIZED ANXIETY DISORDER Active 09-23 00:00: 00 AGE-RELATED OSTEOPOROSIS W/O CURRENT PATHOLOGICAL FRACTURE Active 09-23 00:00: 00 ESSENTIAL (PRIMARY) HYPERTENSION Active 09-23 00:00: 00 TYPE 2 DIABETES MELLITUS WITH DIABETIC NEUROPATHY, UNSP Active 12-05 00:00: 00 TYPE 2 DIABETES W UNSP DIABETIC RTNOP W/O MACULAR EDEMA Active 09-23 00:00: 00 PRSNL HX OF TIA (TIA), AND CEREB INFRC W/O RESID DEFICITS Active 09-23 00:00: 00 HYPERLIPIDEM IA, UNSPECIFIED Active 09-23 00:00: 00 SOLITARY PULMONARY NODULE Active 09-23 00:00: 00 PERSONAL HISTORY OF NICOTINE DEPENDENCE Active 09-23 00:00: 00 PERSONAL HISTORY OF MALIGNANT NEOPLASM OF BREAST Active 09-23 00:00: 00 HISTORY OF FALLING Active 09-23 00:00: 00 HALF-WAY (CURRENT) USE OF INSULIN Active 09-23 00:00: 00 Allergies, Adverse Reactions, Alerts Allergy Name Allergy Type Status Severity Reaction(s) Onset Date Inactive Date Treating Clinician Comments CODEINE Propensity to adverse reactions Active 12-10 10:35: 12 SHELLFISH CONTAINING PRODUCTS Propensity to adverse reactions Active 12-10 10:35: 31 DILAUDID Propensity to adverse reactions Active 12-10 10:35: 39 MORPHINE Propensity to adverse reactions Active 12-10 10:35: 50 GLUTEN Propensity to adverse reactions Active 12-10 10:36: 02 Medications Ordered Medication Name Filled Medication Name Start Date Stop Date Current Medication? Ordering Clinician Indication Dosage Frequency Signature (SIG) Comments Components triamcinolo ne acetonide 0.025 % lotion 11-08 00:00: 00 12-10 00:00 :00 No [id number] Per instruc tions TO ARMS THREE TIMES DAILY Per instructio ns TO ARMS THREE TIMES DAILY (route: topical) Med Classific ation: Dermatolo gical mirtazapine 15 mg tablet 11-24 00:00: 00 Yes [id number] SLEEP Per instruc tions AT BEDTIME Per instructio ns AT BEDTIME (route: oral) Med Classific ation: Central Nervous System Agents omeprazole 40 mg capsule,del ayed release 2020-09 00:00: 00 Yes [id number] GERD Per instruc tions DAILY Per instructio ns DAILY (route: oral) Med Classific ation: Gastroint estinal Therapy Agents amlodipine 5 mg tablet 2020-09 00:00: 00 Yes [id number] HTN Per instruc tions DAILY Per instructio ns DAILY (route: oral) Med Classific ation: Cardiovas cular Therapy Agents escitalopra m 5 mg tablet 12-05 00:00: 00 Yes [id number] ANXIETY 1 tablet DAILY 1 tablet DAILY (route: oral) Med Classific ation: Central Nervous System Agents furosemide 40 mg tablet 2020-09 00:00: 00 Yes [id number] HTN 1 tablet DAILY 1 tablet DAILY (route: oral) Med Classific ation: Cardiovas cular Therapy Agents pregabalin 50 mg capsule 2022-0 3-04 00:00: 00 Yes [id number] . Per instruc tions DAILY Per instructio ns DAILY (route: oral) Med Classific ation: Central Nervous System Agents pregabalin 50 mg capsule 1-19 00:00: 00 12-10 00:00 :00 No [id number] Per instruc tions DAILY Per instructio ns DAILY (route: oral) Med Classific ation: Central Nervous System Agents Lantus U-100 Insulin 100 unit/mL subcutaneou s solution 1-05 00:00: 00 Yes [id number] DM Per instruc tions SUBCUTANEO USLY AT BEDTIME Per instructio ns SUBCUTANEO USLY AT BEDTIME (route: subcutaneo us) Med Classific ation: Endocrine insulin syringe U-100 with needle 0.5 mL 31 gauge x 02/05 00:00: 00 12-10 00:00 :00 No [id number] Per instruc tions FIVE DAILY Per instructio ns FIVE DAILY (route: miscellane ous) Med Classific ation: Medical Supplies and Durable Medical Equipment (DME) Aspirin Low Dose 81 mg tablet,anne yed release 12-10 00:00: 00 Yes [id number] HEART HEALTH 1 tablet DAILY 1 tablet DAILY (route: oral) Med Classific ation: Hematolog ical Agents bisacodyl 5 mg tablet,anne yed release 12-10 00:00: 00 Yes [id number] CONSTIPATIO N 2 tablet DAILY 2 tablet DAILY (route: oral) Med Classific ation: Gastroint estinal Therapy Agents ferrous sulfate 325 mg (65 mg iron) tablet 12-10 00:00: 00 Yes [id number] SUPPLEMENT 1 tablet DAILY 1 tablet DAILY (route: oral) Med Classific ation: Electroly te Balance-N utritiona l Products levothyroxi ne 125 mcg tablet 12-10 00:00: 00 Yes [id number] HYPOTHYROID ISM 1 tablet DAILY 1 tablet DAILY (route: oral) Med Classific ation: Endocrine magnesium oxide 400 mg (241.3 mg magnesium) tablet 12-10 00:00: 00 Yes [id number] SUPPLEMENT 1 tablet DAILY 1 tablet DAILY (route: oral) Med Classific ation: Electroly te Balance-N utritiona l Products multivitami n tablet 12-10 00:00: 00 Yes [id number] SUPPLEMENT 1 tablet DAILY 1 tablet DAILY (route: oral) Med Classific ation: Electroly te Balance-N utritiona l Products Novolog U-100 Insulin aspart 100 unit/mL subcutaneou s solution 12-10 00:00: 00 Yes [id number] DM Per instruc tions 3 TIMES DAILY Per instructio ns 3 TIMES DAILY (route: subcutaneo us) Med Classific ation: Endocrine Vital Signs Vital Name Observation Time Observation Value Commen ts Temperature 2021-12-28 11:48:00.000 97.6 [degF] Temperature 2021-12-28 10:18:00.000 98.2 [degF] Temperature 2021-12-27 14:52:00.000 97.2 [degF] Temperature 2021-12-26 09:56:00.000 98 [degF] Temperature 2021-12-21 12:00:00.000 97.3 [degF] Temperature 2021-12-20 12:45:00.000 97.1 [degF] Temperature 2021-12-19 10:04:00.000 97.2 [degF] Temperature 2021-12-18 10:14:00.000 97.7 [degF] Temperature 2021-12-15 09:50:00.000 97.7 [degF] Temperature 2021-12-14 11:47:00.000 97.9 [degF] Temperature 2021-12-14 10:10:00.000 97 [degF] Temperature 2021-12-10 11:12:00.000 96.9 [degF] Height 2021-12-10 11:12:00.000 65 [in_us] Pulse 2021-12-28 11:48:00.000 82 /min Pulse 2021-12-28 10:18:00.000 73 /min Pulse 2021-12-27 14:52:00.000 74 /min Pulse 2021-12-26 09:56:00.000 73 /min Pulse 2021-12-21 12:00:00.000 80 /min Pulse 2021-12-20 12:45:00.000 70 /min Pulse 2021-12-19 10:04:00.000 70 /min Pulse 2021-12-18 10:14:00.000 72 /min Pulse 2021-12-15 09:50:00.000 66 /min Pulse 2021-12-14 11:47:00.000 68 /min Pulse 2021-12-14 10:10:00.000 71 /min Pulse 2021-12-10 11:12:00.000 70 /min O2 Saturation (%) 2021-12-28 11:48:00.000 95 % O2 Saturation (%) 2021-12-21 12:00:00.000 97 % O2 Saturation (%) 2021-12-20 12:45:00.000 100 % O2 Saturation (%) 2021-12-14 11:47:00.000 99 % O2 Saturation (%) 2021-12-14 10:10:00.000 97 % O2 Saturation (%) 2021-12-10 11:12:00.000 96 % Respirations 2021-12-28 11:48:00.000 18 /min Respirations 2021-12-28 10:18:00.000 18 /min Respirations 2021-12-27 14:52:00.000 18 /min Respirations 2021-12-26 09:56:00.000 18 /min Respirations 2021-12-21 12:00:00.000 20 /min Respirations 2021-12-20 12:45:00.000 18 /min Respirations 2021-12-19 10:04:00.000 18 /min Respirations 2021-12-18 10:14:00.000 18 /min Respirations 2021-12-15 09:50:00.000 18 /min Respirations 2021-12-14 11:47:00.000 18 /min Respirations 2021-12-14 10:10:00.000 18 /min Respirations 2021-12-10 11:12:00.000 20 /min Weight (lbs) 2021-12-10 11:12:00.000 166 [lb_av] Systolic Blood Pressure 2021-12-28 11:48:00.000 140 mm [Hg] Systolic Blood Pressure 2021-12-28 10:18:00.000 118 mm [Hg] Systolic Blood Pressure 2021-12-27 14:52:00.000 126 mm [Hg] Systolic Blood Pressure 2021-12-26 09:56:00.000 110 mm [Hg] Systolic Blood Pressure 2021-12-21 12:00:00.000 138 mm [Hg] Systolic Blood Pressure 2021-12-20 12:45:00.000 124 mm [Hg] Systolic Blood Pressure 2021-12-19 10:04:00.000 118 mm [Hg] Systolic Blood Pressure 2021-12-18 10:14:00.000 120 mm [Hg] Systolic Blood Pressure 2021-12-15 09:50:00.000 112 mm [Hg] Systolic Blood Pressure 2021-12-14 11:47:00.000 122 mm [Hg] Systolic Blood Pressure 2021-12-14 10:10:00.000 118 mm [Hg] Systolic Blood Pressure 2021-12-10 11:12:00.000 138 mm [Hg] Diastolic Blood Pressure 2021-12-28 11:48:00.000 80 mm [Hg] Diastolic Blood Pressure 2021-12-28 10:18:00.000 62 mm [Hg] Diastolic Blood Pressure 2021-12-27 14:52:00.000 70 mm [Hg] Diastolic Blood Pressure 2021-12-26 09:56:00.000 60 mm [Hg] Diastolic Blood Pressure 2021-12-21 12:00:00.000 66 mm [Hg] Diastolic Blood Pressure 2021-12-20 12:45:00.000 80 mm [Hg] Diastolic Blood Pressure 2021-12-19 10:04:00.000 52 mm [Hg] Diastolic Blood Pressure 2021-12-18 10:14:00.000 70 mm [Hg] Diastolic Blood Pressure 2021-12-15 09:50:00.000 60 mm [Hg] Diastolic Blood Pressure 2021-12-14 11:47:00.000 70 mm [Hg] Diastolic Blood Pressure 2021-12-14 10:10:00.000 68 mm [Hg] Diastolic Blood Pressure 2021-12-10 11:12:00.000 70 mm [Hg] Plan of Treatment Planned Activity Planned Date Details Comments Future Scheduled Test SKILLED NU RSE TO ASSESS, EVALUATE, AND DEVELOP AN INDIVIDUALIZED PLAN OF CARE. AGENCY MAY ACCEPT ORDERS FROM CONSULTING PHYSICIANS LIO HAWLEY TO OBSERVE/ASSESS RISK FOR FALLS AND INSTRUCT [...] AGENCY MAY ACCEPT ORDERS FROM CONSULTING PHYSICIANS LIO [place]WLEY TO OBSERVE/ASSESS RISK FOR FALLS AND INSTRUCT [...] NURSE TO INSTRUCT PATIENT/CAREGIVER ON RISK FOR HOSPITALIZATION, TEACH SIGNS AND SYMPTOMS THAT PUT PATIENT AT RISK, WHEN TO NOTIFY NURSE OF COMPLICATIONS/DECLINE, AND WHEN TO CALL 911. SKILLED NURSE TO INSTRUCT PATIENT/CAREGIVER ON: SIGNS AND SYMPTOMS TO BE ON ALERT FOR EARLY INTERVENTION, PRIOR TO NEEDING EMERGENCY SERVICES CALL [facility] NURSE TO KEEP DRY CHAIN OFFBEARER SYMPTOM REPORT FOR VISIBLE REFERENCE NOTIFY SKILLED NURSE/PHYSICIAN FOR DECLINE IN STATUS WHEN AND HOW TO CALL HOME HEALTH AGENCY FACILITATE PHYSICIAN FOLLOW UP APPOINTMENT IDENTIFY SOCIOECONOMIC CONCERNS AND MAKE APPROPRIATE REFERRAL NEEDED [code = RISK FOR HOSPITALIZATION; SKILLED NURSE TO INSTRUCT PATIENT/CAREGIVER ON RISK FOR HOSPITALIZATION, TEACH SIGNS AND SYMPTOMS THAT PUT PATIENT AT RISK, WHEN TO NOTIFY NURSE OF COMPLICATIONS/DECLINE, AND WHEN TO CALL 911. SKILLED NURSE TO INSTRUCT PATIENT/CAREGIVER ON: SIGNS AND SYMPTOMS TO BE ON ALERT FOR EARLY INTERVENTION, PRIOR TO NEEDING EMERGENCY SERVICES CALL [facility] NURSE TO KEEP DRY CHAIN OFFBEARER SYMPTOM REPORT FOR VISIBLE REFERENCE NOTIFY SKILLED NURSE/PHYSICIAN FOR DECLINE IN STATUS WHEN AND HOW TO CALL HOME HEALTH AGENCY FACILITATE PHYSICIAN FOLLOW UP APPOINTMENT IDENTIFY SOCIOECONOMIC CONCERNS AND MAKE APPROPRIATE REFERRAL NEEDED] Future Scheduled Test MEDICATION MANAGEMENT; SKILLED NURSE [...] FREQUENCY, PURPOSE, SIDE EFFECTS, AND TO REPORT COMPLICATIONS.] Future Scheduled Test CARDIOVASC ULAR SYSTEM; SKILLED NURSE TO ASSESS AND TEACH RELATED TO ALTERED CARDIOVASCULAR STATUS TO MINIMIZE COMPLICATIONS AND REDUCE HOSPITALIZATION. [code = CARDIOVASCULAR SYSTEM; SKILLED NURSE TO ASSESS AND TEACH RELATED TO ALTERED CARDIOVASCULAR STATUS TO MINIMIZE COMPLICATIONS AND REDUCE HOSPITALIZATION.] Future Scheduled Test PAIN MANAG EMENT; SKILLED NURSE TO OBSERVE, ASSESS, AND PROVIDE EDUCATION ON PAIN MANAGEMENT TECHNIQUES. [code = PAIN MANAGEMENT; SKILLED NURSE TO OBSERVE, ASSESS, AND PROVIDE EDUCATION ON PAIN MANAGEMENT TECHNIQUES.] Future Scheduled Test DIABETES M ANAGEMENT; SKILLED NURSE FOR INSTRUCTIONS OF DIABETIC CARE TO INCLUDE: NCS, LOW SODIUM, SKIN CARE, SIGNS AND SYMPTOMS OF HYPO/HYPERGLYCEMIA, PROPER ADMINISTRATION OF DIABETIC MEDICATION. SKILLED NURSE TO INSTRUCT ON DIABETIC FOOT CARE AND MONITOR FOR SKIN LESIONS ON LOWER EXTREMITIES. BLOOD GLUCOSE SENSOR FOR MONITORING SKILLED NURSE TO ASSESS PATIENT/CAREGIVER ABILITY TO PERFORM AND RECORD BLOOD GLUCOSE TESTING ORDERED AND TO REPORT ABNORMAL FINDINGS TO PHYSICIAN. SKILLED NURSE MAY PERFORM BLOOD GLUCOSE TEST NEEDED. SKILLED NURSE TO REPORT TO PHYSICIAN BLOOD GLUCOSE READINGS GREATER THAN 300 OR LESS THAN 70 SKILLED NURSE TO INSTRUCT PATIENT ON IMPORTANCE OF HGBA1C MONITORING, KIDNEY FUNCTION TEST, EYE AND FOOT EXAMS. [code = DIABETES MANAGEMENT; SKILLED NURSE FOR INSTRUCTIONS OF DIABETIC CARE TO INCLUDE: NCS, LOW SODIUM, SKIN CARE, SIGNS AND SYMPTOMS OF HYPO/HYPERGLYCEMIA, PROPER ADMINISTRATION OF DIABETIC MEDICATION. SKILLED NURSE TO INSTRUCT ON DIABETIC FOOT CARE AND MONITOR FOR SKIN LESIONS ON LOWER EXTREMITIES. BLOOD GLUCOSE SENSOR FOR MONITORING SKILLED NURSE TO ASSESS PATIENT/CAREGIVER ABILITY TO PERFORM AND RECORD BLOOD GLUCOSE TESTING ORDERED AND TO REPORT ABNORMAL FINDINGS TO PHYSICIAN. SKILLED NURSE MAY PERFORM BLOOD GLUCOSE TEST NEEDED. SKILLED NURSE TO REPORT TO PHYSICIAN BLOOD GLUCOSE READINGS GREATER THAN 300 OR LESS THAN 70 SKILLED NURSE TO INSTRUCT PATIENT ON IMPORTANCE OF HGBA1C MONITORING, KIDNEY FUNCTION TEST, EYE AND FOOT EXAMS.] Future Scheduled Test SKIN INTEG RITY - OBSERVE AND ASSESS INTEGUMENTARY STATUS TO IDENTIFY CHANGES AND INTERVENE TO MINIMIZE COMPLICATIONS. PROVIDE SKILLED TEACHING OF GENERAL WOUND AND SKIN CARE AND PREVENTION RELATED TO POTENTIAL FOR OR ACTUAL ALTERED SKIN INTEGRITY [code = SKIN INTEGRITY - SN OBSERVE AND ASSESS INTEGUMENTARY STATUS TO IDENTIFY CHANGES AND INTERVENE TO MINIMIZE COMPLICATIONS. PROVIDE SKILLED TEACHING OF GENERAL WOUND AND SKIN CARE AND PREVENTION RELATED TO POTENTIAL FOR OR ACTUAL ALTERED SKIN INTEGRITY ] Future Scheduled Test FALL REDUC TION MANAGEMENT; [...] TO MINIMIZE FALL RISK.] Future Scheduled Test PHYSICAL T HERAPIST TO EVALUATE FOR STRENGTH, BALANCE [code = PHYSICAL THERAPIST TO EVALUATE FOR STRENGTH, BALANCE] Future Scheduled Test OCCUPATION AL THERAPIST TO EVALUATE FOR ADL MANAGEMENT [code = OCCUPATIONAL THERAPIST TO EVALUATE FOR ADL MANAGEMENT ] Goal 2021-12-30 Patient Goal - I MPROVE A1C AND BLOOD SUGARS Goal Provider Goal - A PLAN OF [...] THAT PUT THE PATIENT AT RISK FOR HOSPITALIZATION, WHEN TO NOTIFY SN OF COMPLICATIONS/DECLINE AND WHEN TO CALL 911. Goal Provider Goal - PATIENT/CAREGIVER TO VERBALIZE, AND CONSISTENTLY DEMONSTRATE EFFECTIVE, SAFE MANAGEMENT OF MEDICATION INCLUDING KNOWLEDGE OF EFFECTIVENESS, POTENTIAL SIDE EFFECTS AND DRUG REACTIONS AND WHEN TO CONTACT THE APPROPRIATE CARE PROVIDER. PATIENT/CAREGIVER WILL BE ABLE TO VERBALIZE UNDERSTANDING OF MEDICATION REGIMEN AND ACCURATELY TAKE MEDICATIONS PRESCRIBED WITHOUT ADVERSE EFFECTS BY 02/07/22 Goal Provider Goal - PATIENT / CAREGIVER WILL VERBALIZE/DEMONSTRATE UNDERSTANDING OF MEASURES TO MANAGE ALTERED CARDIOVASCULAR STATUS BY 02/07/22 Goal Provider Goal - PATIENT / CAREGIVER WILL VERBALIZE / DEMONSTRATE UNDERSTANDING OF PAIN CONTROL MEASURES BY 02/07/22 Goal Provider Goal - PATIENT / CAREGIVER WILL VERBALIZE / DEMONSTRATE AN ABILITY TO ADHERE TO SELF-MANAGEMENT OF DIABETES MANAGEMENT BY 01/1822 Goal Provider Goal - CHANGES IN SKIN INTEGRITY STATUS WILL BE IDENTIFIED AND REPORTED TO THE PHYSICIAN FOR PROMPT INTERVENTION. PATIENT / CAREGIVER WILL VERBALIZE/DEMONSTRATE ADEQUATE KNOWLEDGE OF INTEGUMENTARY STATUS AND APPROPRIATE MEASURES TO PROMOTE SKIN INTEGRITY AND PREVENT INJURY BY 02/07/22 Goal Provider Goal - PATIENT/CAREGIVER ABLE TO IDENTIFY FALL RISK FACTORS AND IMPLEMENT STRATEGIES TO MINIMIZE FALL RISK. PATIENT/CAREGIVER WILL VERBALIZE/DEMONSTRATE AN ABILITY TO ADHERE TO FALL REDUCTION SELF MANAGEMENT AND LIFE-STYLE CHANGES AT DISCHARGE. PERSONAL GOAL(S) STATED BY PATIENT/CAREGIVER WILL BE MET BY 02/07/22 Reason for Visit MODERATE ASSIST WITH TRANSFER/AMBULATION/ADLS Encounters Start Date/Time End Date/Time Encounter Type Admission Type Attending [facility] Care Department Encounter ID Discharge Date Discharge Status Discharge Condition Discharge Reason Percent Goals Met 2021-12-10 00:00:00 2021-12-30 00:00:00 Outpatient NEW ADMISSION [facility] [id number] 2021-12-30 00:00:00 DISCHARGED /TRANSFERR ED TO A SHORT-TERM [facility]PAT[facility] MODERATE ASSIST WITH TRANSFER/A MBULATION/ ADLS HH ONLY - TRANSFER TO HOSPITAL 39.39
--- NOTE | 2024-09-09 12:44 | A.OFFVIS_ITS ---
Vital Signs 09/09/24 12:54 Height 5 ft 5 in Weight 134 lb BMI 22.3 Intake Visit Reasons: OV: B/L CTS Intake Note: Tosin 78 yr old female presents today for a follow up visit to discuss bilateral CTR, cubital on left hand, trigger release of left middle finger and right middle finger. States she is not sure which she wants to have repaired first but states she can not wait another 3 months to have her A1C checked. She is requesting medication that would help her with her symptoms. Allergies codeine Allergy (Verified 09/09/24 13:02) Unconscious hydromorphone [From Dilaudid] Allergy (Verified 09/09/24 13:02) Unconscious morphine Allergy (Verified 09/09/24 13:02) Unconscious povidone-iodine [From Betadine] Allergy (Verified 09/09/24 13:02) Unknown shellfish derived Allergy (Verified 09/09/24 13:02) Unknown soap [From Betadine] Allergy (Verified 09/09/24 13:02) Unknown HPI HPI OV: B/L CTS : Details: Tosin is an 78 year old woman who presents for a NCS review of her bilateral carpal tunnel syndrome. She complains of numbness in her bilateral hands, as well as pain. Symptoms constant in her right hand, and intermittent but daily in her left. She says she wakes up in tears due to her pain & discomfort in her hands. She also complains of painful locking of her bilateral middle fingers. She says this is very painful and bothersome for her, R>L. She also has a hx of her right ring finger locking but she has no complaints of this today. She denies any prior treatment options She is a Diabetic and is on Eliquis & Nitroglycerin. Her Diabetes has been poorly controlled in the past, with her last recorded HgA1c being 9.7. 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 Review of Systems Const All systems reviewed & are unremarkable except as noted in HPI and below Physical Exam Vital Signs: BMI result Body Mass Index 22.3 Const General: cooperative, healthy appearing and no acute distress Orientation/consciousness: patient oriented x3 HEENT Head: Yes normocephalic and Yes atraumatic Eyes EOM: EOMs intact bilaterally Resp Effort & Inspection: normal respiratory effort and able to speak in complete sentences Cardio Jugular venous distension: no JVD Skin General skin exam: turgor normal Rashes: no rashes Neuro General: patient oriented x3 Extrem Other: Evaluation of right Upper Extremity: The patient is alert, oriented, and in no acute distress Neuro: Dense numbness to the tips of all digits No thenar or intrinsic wasting Vascular: Cap refill brisk ROM: She can make a fist and extend all her digits Visible and palpable locking & catching of her bilateral middle fingers Tender over the a1 sachin of her bilateral middle fingers Skin: No lacerations or abrasions. General: No Ecchymosis. No Erythema or evidence of infection. Nerve Conduction Study IMPRESSION: 1. This is an abnormal study. 2. There is electrodiagnostic evidence for right severe and left moderate-severe median neuropathy at the wrist, consistent with carpal tunnel syndrome. 3. There is electrodiagnostic evidence for left ulnar neuropathy, suspect at the elbow. CLINICAL COMMENT: Patient talks about a fall 6 months ago and continues to have symptoms on right elbow. Follow up with Orthopedics. Mouna Beach MD, CHRISTINE 06/18/24 Psych Appearance: grossly normal Affect: normal affect Attitude: cooperative Assessment & Plan Assessment & Plan (1) Carpal tunnel syndrome, bilateral: Code(s): G56.03 - Carpal tunnel syndrome, bilateral upper limbs Category: Medical (2) Cubital tunnel syndrome on left: Code(s): G56.22 - Lesion of ulnar nerve, left upper limb Category: Medical (3) Trigger finger, left middle finger: Code(s): M65.332 - Trigger finger, left middle finger Category: Medical (4) Trigger finger, right middle finger: Code(s): M65.331 - Trigger finger, right middle finger Category: Medical (5) Diabetes: Code(s): E11.9 - Type 2 diabetes mellitus without complications Category: Medical Plan Assessment & Plan: 1. Right carpal tunnel syndrome, severe With dense numbness 2. Right middle finger trigger finger Her right hand is her chief complaint today 3. Left carpal tunnel syndrome, moderate-severe With dense numbness 4. Left cubital tunnel syndrome With dense numbness 5. Left middle finger trigger finger I educated her about these conditions I discussed operative and non-operative treatment options The patient would like to proceed with surgery, beginning with the right side. However her Diabetes is poorly controlled and her most recent HgA1c was ~10.0% last month. She needs to have her Diabetes better controlled, and a HgA1c <8.1% before proceeding with surgery. She says her [employer] is not helpful for managing her Diabetes, and she is unhappy with her treatment there I recommend she speak with her PCP to better manage her diabetes. She was given a velcro wrist splint to wear at night She can follow up prn when her HgA1c is better controlled Scribed for Catalina Lorenzo MD by Erik Self clinical medical assistant, on 09/09/24 at 1:30 PM, EST. Coding Level of Care Code Est Pt Level 4 (07181) Diagnoses Carpal tunnel syndrome, bilateral G56.03 Cubital tunnel syndrome on left G56.22 Trigger finger, left middle finger M65.332 Trigger finger, right middle finger M65.331 Diabetes E11.9
[2024-09-09 12:54] VITALS: BMI 22.3
== END 2024-09-09 14:23 | disposition home or self-care (01) ==
PROVIDERS: PCP Internal Medicine; Visit Provider Orthopaedic Surgery
DX: G56.03 Carpal tunnel syndrome, bilateral upper limbs (principal); G56.22 Lesion of ulnar nerve, left upper limb; M65.332 Trigger finger, left middle finger; M65.331 Trigger finger, right middle finger; E11.9 Type 2 diabetes mellitus without complications
CPT/HCPCS: 99214

== ENCOUNTER → 2024-09-09 12:35 | Outpatient (BNVA) | payer MEDICARE, MEDICAID, SELFPAY | PROVIDERS: PCP Internal Medicine; Visit Provider Orthopaedic Surgery | DX: G56.03 Carpal tunnel syndrome, bilateral upper limbs (principal); G56.22 Lesion of ulnar nerve, left upper limb; M65.332 Trigger finger, left middle finger; M65.331 Trigger finger, right middle finger; E11.65 Type 2 diabetes mellitus with hyperglycemia | CPT/HCPCS: 99212 ==

== ENCOUNTER 2024-11-16 10:08 | Emergency (ER) | payer MEDICARE, MEDICAID, SELFPAY ==
--- NOTE | ~2024-11-16 | XR_ITS ---
EXAMINATION: XR HIP, RIGHT CLINICAL INFORMATION: Fall COMPARISON: 05/12/2024. TECHNIQUE: AP view pelvis. Two views of the right hip. 2 views of the right femur. FINDINGS: Intramedullary devorah within the right femur with compression screw in the right femoral head, transfixing a prior healed intertrochanteric fracture. There is no acute fracture or dislocation. The hardware is intact and normally seated without failure or periprosthetic lucency. The distal femur is intact. There is no suspicious bone lesion. The pelvis demonstrates degenerative changes in both hip joints, more significant on the left, with chondrocalcinosis of both. Hips are normally aligned. The sacrum is intact. There are degenerative changes in the lower lumbar spine and SI joints. There is no soft tissue abnormality aside from diffuse vascular calcifications. XR/XR hip RT min 2V IMPRESSION: No acute fracture. No dislocation. No right femoral periprosthetic abnormality. Electronically signed by: Shubham Garcia MD 11/16/2024 01:04 PM [facility]
--- NOTE | ~2024-11-16 | XR_ITS ---
EXAMINATION: XR CHEST 1 VIEW HISTORY: Generalized body ache COMPARISON: There are no prior studies for comparison. FINDINGS: A single AP portable view of the chest performed at 12:30 PM is submitted. The lungs are expanded and clear. There is no pleural effusion, pneumothorax, or pulmonary vascular congestion. The heart is normal in size. There are surgical clips in the left axilla. There is degenerative disc disease of the spine. XR/XR chest 1V IMPRESSION: Clear lungs. Electronically signed by: Michael Montalvo MD 11/16/2024 12:50 PM EST
--- NOTE | ~2024-11-16 | XR_ITS ---
EXAMINATION: XR HAND 1-2 VIEWS LEFT HISTORY: Swelling and pain COMPARISON: Correlation is made with plain films of the left wrist dated 03/24/2021. FINDINGS: Three views of the left hand are submitted. The bones are osteopenic. There is no fracture or dislocation. There are erosions involving the bases of the 1st and 2nd metacarpals as well as the carpal bones. There are soft tissue calcifications. There is dorsal soft tissue swelling. XR/XR hand LT 2V IMPRESSION: Dorsal soft tissue swelling. Erosions of the bases of the 1st and 2nd metacarpals is most the carpal bones. Multiple soft tissue calcifications. Findings could represent gout. Clinical correlation is recommended. Electronically signed by: Michael Montalvo MD 11/16/2024 12:44 PM EST
--- NOTE | ~2024-11-16 | XR_ITS ---
EXAMINATION: XR HAND 1-2 VIEWS RIGHT HISTORY: Swelling and pain COMPARISON: Correlation is made with plain films of the right wrist dated 03/24/2021. FINDINGS: Three views of the right hand are submitted. The bones are osteopenic. There is no fracture or dislocation. The joint spaces are preserved. There are small erosions noted involving the metacarpal of the thumb and the proximal phalanx of the index finger. There are numerous periarticular soft tissue calcifications. XR/XR hand RT 2V IMPRESSION: Osteopenia. Small erosions involving the metacarpal of the following the proximal phalanx of the index finger numerous periarticular soft tissue calcifications. Findings could represent gout. Clinical correlation is recommended. Electronically signed by: Michael Montalvo MD 11/16/2024 12:42 PM [facility]
--- NOTE | ~2024-11-16 | CT_ITS ---
EXAMINATION: CT HEAD WITHOUT CONTRAST CLINICAL INFORMATION: Fall and headache. COMPARISON: CT dated March 31, 2021. TECHNIQUE: Contiguous axial imaging was performed from the skull base to vertex without intravenous administration of contrast. This CT examination was performed using dose optimization techniques as appropriate, variously including the following: *Automated exposure control *Adjustment of mA and/or kV according to patient size (this includes techniques or standardized protocols for targeted exams where dose is matched to indication/reason for exam; i.e. extremities or head) *Use of iterative reconstruction technique DLP: 625 mGy-cm FINDINGS: The bony calvarium is without acute cortical disruption. Prominent venous lakes in the occipital diploic. No acute intracranial hemorrhage, mass effect, midline shift, hydrocephalus or herniation. Bilateral multifocal patchy and confluent deep periventricular white matter hypodensities involving centrum semiovale and hernadez radiata. Posterior cranial fossa contents demonstrated no acute intracranial hemorrhage or mass effect. Calcified plaques in the V4 segments of the vertebral arteries and the cavernous supraclinoid segments both ICA. There is mucosal thickening and secretions occupy the entire maxillary sinuses and ethmoid air cells with mild endosteal bone reaction. Tympanic cavities and mastoid air cells are aerated. Degenerative changes in the periodontal C1 region. 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 CT/CT head/brain wo IV con IMPRESSION: No acute fracture, bony calvarium. No acute intracranial hemorrhage. Extensive white matter disease likely related to small vessel occlusive disease. Superimposed acute stroke/nonhemorrhagic ischemia cannot be excluded. Acute on chronic paranasal sinus disease. Electronically signed by: Jeremy Fang MD 11/16/2024 02:11 PM [facility]
[2024-11-16 10:43] VITALS: BP 129/62; PULSE 88; RESP 18; TEMP 36.7; O2SAT 97; BMI 25.7
[2024-11-16 10:48] VITALS: BP 139/74; PULSE 87; O2SAT 100
--- NOTE | 2024-11-16 11:23 | ECG_ITS ---
Test Reason : generalized body ache Blood Pressure : */* mmHG Vent. Rate : 77 BPM Atrial Rate : 77 BPM P-R Int : 170 ms QRS Dur : 72 ms QT Int : 362 ms P-R-T Axes : 33 -27 6 degrees QTcB Int : 409 ms Sinus rhythm with Premature atrial complexes Septal infarct , age undetermined Abnormal ECG No previous ECGs available Referred By: Gwen Barbour Electronically Signed By: RACHEL FINCH
--- NOTE | 2024-11-16 11:25 | ED_ITS ---
HPI - General Adult General Chief complaint: Extremity Problem Stated complaint: FALL W/GONZALEZ HAND SWELLING/PAIN ALL OVER 2WA PER EMS Time Seen by Provider: 11/16/24 11:11 Source: patient, family (FRONT DESK ASSISTANT) and EMS Mode of arrival: EMS Limitations: no limitations History of Present Illness ED Provider: DR. Barbour HPI narrative: 79-year-old female history of arthritis, carpal tunnel syndrome came in for evaluation of bilateral hand pain and swelling left hand just started this morning, patient stated that she had a recent fall at home 2 days ago, do not remember if LOC or head injury but complaining of headache, do not take anticoagulation, patient on chronic tramadol for chronic bilateral hand pain. Noticed increased swelling and pain of both hands left more than right. Related Data Home Medications ?Medication ?Instructions ?Recorded ?Confirmed alendronate 70 mg tablet 70 mg PO QWEEK 05/03/23 08/18/24 amlodipine 2.5 mg tablet 2.5 mg PO DAILY 05/03/23 08/18/24 apixaban 2.5 mg tablet (Eliquis) 2.5 mg PO BID 05/03/23 08/18/24 furosemide 20 mg tablet 20 mg PO BID 05/03/23 08/18/24 insulin aspart U-100 100 unit/mL subcut 05/03/23 08/18/24 subcutaneous solution (Novolog U-100 Insulin aspart) levothyroxine 125 mcg tablet 125 mcg PO DAILY 05/03/23 08/18/24 lisinopril 5 mg tablet 5 mg PO DAILY 05/03/23 08/18/24 nitroglycerin 0.4 mg sublingual 0 mg sublingual 05/03/23 08/18/24 tablet sub-q insulin device, 20 unit #30 ea 05/03/23 08/18/24 (V-GO 20 device) Previous Rx's ?Medication ?Instructions ?Recorded doxycycline hyclate 100 mg tablet 100 mg PO BID #14 tabs 11/16/24 prednisone 20 mg tablet 20 mg PO BID #10 tabs 11/16/24 Allergies Allergy/AdvReac Type Severity Reaction Status Date / Time codeine Allergy Unknown Verified 11/16/24 10:46 duloxetine Allergy Unknown Verified 11/16/24 10:46 gluten Allergy Unknown Verified 11/16/24 10:46 hydromorphone Allergy Unknown Verified 11/16/24 10:50 iodine Allergy Unknown Verified 11/16/24 10:50 morphine Allergy Unknown Verified 11/16/24 10:46 pregabalin Allergy Unknown Verified 11/16/24 10:43 shellfish derived [shellfish] Allergy Unknown Verified 11/16/24 10:46 Review of Systems 2 Review of Systems: All other systems are reviewed and are negative Constitutional: Reports as per HPI and Reports no additional constitutional complaints Eyes: Reports as per HPI and Reports no additional eye complaints Reports system reviewed and no additional complaints, except as documented Cardiovascular: Reports as per HPI and Reports no additional cardiovascular complaints Respiratory: Reports as per HPI and Reports no additional respiratory complaints Gastrointestinal: Reports as per HPI and Reports no additional gastrointestinal complaints Genitourinary: Reports no additional female genitourinary complaints Musculoskeletal: Reports no additional musculoskeletal complaints Skin/Breast: Reports system reviewed and no additional complaints, except as docu Psychiatric: Reports no additional psychiatric complaints Endocrine: Reports no additional endocrine complaints Hematologic/Lymphatic: Reports no additional hematologic/lymphatic complaints Allergic/Immunologic: Reports no additional allergic/immunologic complaints Reports system reviewed and no additional complaints, except as documented and Reports Abnormal speech present [facility] Past Medical History Medical History HTN (hypertension) Cervical cancer Thyroid cancer Breast cancer Diabetes Surgical History History of hip surgery Status post partial removal of lung H/O: hysterectomy H/O mastectomy Social History Social History Patient Tobacco Use Status: Never used Tobacco Smoked in Last 30 Days: No Use of substances other than those prescribed or required for medical reasons: No Advance Directives: No Advance Directives Information Provided: Yes Do you have a plan to hurt others: No Plan Current occupational status: retired 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 Physical Exam ED Vital Signs: Vital Signs - 24 hr 11/16/24 10:43 11/16/24 13:11 11/16/24 14:41 Temperature 98.1 F 98.4 F 98.1 F Pulse Rate 88 84 72 Respiratory Rate 18 17 14 Blood Pressure 129/62 134/68 140/71 H Pulse Oximetry 97 96 Oxygen Delivery Method Room Air Room Air 11/16/24 15:53 Temperature 98.8 F Pulse Rate 79 Respiratory Rate 18 Blood Pressure 151/78 H Pulse Oximetry 94 Oxygen Delivery Method Room Air BMI result Body Mass Index 25.7 Vital signs have been reviewed and appear to be correct. Blood pressure elevated. Heart rate normal. Respiratory rate normal. Temperature normal. Oxygen saturation normal. Appearance: Alert. Oriented X3. No acute distress. Head: Normal external exam. Normocephalic. Atraumatic. No Myles signs noted. No raccoon eyes noted Eyes: PERRLA. EOMI. Conjunctiva and sclera normal. Eyelids normal. ENT: TM's Normal. Pharynx normal. Uvula midline. Moist mucous membranes. No trismus noted. No drooling noted. No muffled voice noted. Neck: Normal inspection. Neck supple. FROM. No adenopathy. Thyroid Normal. No meningeal signs. No neck mass noted. CVS: Normal heart rate and rhythm. Heart sound normal. No murmurs noted. Pulses normal throughout. Respiratory: No respiratory distress. Painless inspiration. Breath sounds normal. No wheezes/rales/rhonchi noted. Chest nontender. No accessory muscle usage noted or decreased air movement noted. Abdomen: Soft and nontender. Bowel sounds normal in all 4 quadrants. No distention noted. No organomegaly noted. No visible injury noted. Back: No CVA tenderness. Full range of motion noted. Skin: Skin warm and dry. Normal skin color. Normal skin turgor. No rashes/lesions/lacerations noted. Extremities: Bilateral hand swelling, left hand swelling and tenderness. Neuro: Oriented X 3. Cranial nerve exam: II-XII are grossly intact No motor deficit. No sensory deficit. Reflexes normal. Course Reevaluation(s) Reevaluation #1: Bilateral hand swelling and tenderness with leukocytosis and elevation of sed rate. Patient was history of chronic arthritis on chronic pain medication tramadol at home, came in with worsening of left hand swelling and redness questionable gout arthritis versus cellulitis. Will start the patient on short course of prednisone to help arthritis and empirical doxycycline. And follow-up with hand surgery (Dr. Alfaro). Time: 16:12 Medications Administered Discontinued Medications Generic Name Dose Route Start Last Admin Trade Name Freq PRN Reason Stop Dose Admin Piperacillin Sod/Tazobactam 50 mls @ 100 mls/hr 11/16/24 12:39 11/16/24 14:01 Sod 3.375 gm/ Sodium Chloride IV 11/16/24 13:08 Infused ONCE ONE Infusion Prednisone 60 mg 11/16/24 13:14 11/16/24 13:32 Prednisone 20 Mg Tablet PO 11/16/24 13:15 60 mg ONCE ONE Administration Medical Decision Making Differential Diagnosis Differential Diagnoses: The differential diagnosis associated with the presentation includes (Intracranial bleed, electrolyte derangement, severe anemia, cellulitis of her left hand, arthritis of left hand.) Admission/Observation Consideration of admission/observation: Escalation of care including admission/observation considered Lab Data MDM Lab Attestation statement: I reviewed the patient's lab results. 11/16/24 11:49 11/16/24 11:49 Labs: Lab Results 11/16/24 11/16/24 11/16/24 Range/Units 11:49 12:18 12:59 WBC 16.2 H (4.8-10.8) X10*3/uL RBC 3.63 L (4.20-5.50) X10*6/uL Hgb 10.9 L (12.0-16.0) g/dl Hct 32.7 L (37.0-47.0) % MCV 90.1 (80.0-98.0) fL MCH 30.0 (27.0-33.0) pg MCHC 33.3 (31.0-35.0) g/dl RDW 13.9 (11.0-16.0) % Plt Count 300 (160-400) X10*3/uL MPV 10.8 (9.4-12.3) fL Immature Gran % (Auto) 0.7 H (0.0-0.4) % Neut % (Auto) 91.0 H (45-73) % Lymph % (Auto) 5.1 L (20-40) % Redwood % (Auto) 3.0 (2-11) % Eos % (Auto) 0.0 (0-4) % Baso % (Auto) 0.2 (0-2) % Lymph # (Auto) 0.8 L (1.2-4.9) X10*3/uL Redwood # (Auto) 0.5 (0.1-1.2) X10*3/uL Eos # (Auto) 0.0 (0.0-0.4) X10*3/uL Baso # (Auto) 0.0 (0.0-0.2) X10*3/uL Abs Immat Gran (auto) 0.12 H (0.00-0.03) X10*3/uL Absolute Neuts (auto) 14.8 H (2.0-8.3) x10*3/uL Absolute Nucleated RBC 0.000 (0.0-0.012) X10*3/uL Nucleated RBC % (auto) 0.0 (0.0-0.2) /100WBC Smear Tech's Comments VERIFIED ESR 83 H (0-20) MM/HR Sodium 138 (135-145) mmol/L Potassium 3.9 (3.3-5.1) mmol/L Chloride 103 (96-108) mmol/L Carbon Dioxide 25 (22-29) mmol/L Anion Gap 14 (12-20) BUN 39 H (9-16) mg/dL Creatinine 1.20 (0.5-1.4) mg/dL Estim Creat Clear Calc 36.0 Estimated GFR 43 Random Glucose 233 H (60-115) mg/dL Lactic Acid 1.8 (0.5-2.0) mmol/L Calcium 8.5 (8.4-10.2) mg/dL Total Bilirubin 0.5 (0.0-1.0) mg/dL Direct Bilirubin 0.2 (0.0-0.5) mg/dL AST 18 (5-31) U/L ALT 11 (0-31) U/L Alkaline Phosphatase 115 (39-117) U/L Troponin I High Sens 4.2 (<3.5-17.0) ng/L C-Reactive Protein 10.92 H (< or = 0.50) mg/dL B-Natriuretic Peptide 201 H (<100) pg/mL Total Protein 6.8 (6.5-8.0) g/dL Albumin 3.0 L (3.5-5.0) g/dL Lipase 9 (8-78) U/L Influenza Type A (PCR) NEGATIVE (Negative) Influenza Type B (PCR) NEGATIVE (Negative) RSV RNA Qual (PCR) NEGATIVE (Negative) SARS-CoV-2 RNA (RT-PCR) NEGATIVE (Negative) Independent Interpretation I performed an independent interpretation of an: Plain X-Ray (Left hand x- ray:Dorsal soft tissue swelling. Erosions of the bases of the 1st and 2nd metacarpals is most the carpal bones. Multiple soft tissue calcifications. Findings could represent gout. Clinical correlation is recommended. ) and CT Scan (Head:No acute fracture, bony calvarium. No acute intracranial hemorrhage. Extensive white matter disease likely related to small vessel occlusive disease. Superimposed acute stroke/nonhemorrhagic ischemia cannot be excluded. Acute on chronic paranasal sinus disease. ) Interpretation: Chest x-ray: Clear lungs. Radiology Impression Discussion of test interpretation with radiology: I have reviewed the radiologist's reading. Discharge Plan Discharge Clinical Impression: Cellulitis of left hand, Arthritis of left hand Patient Disposition: Home, Self-Care Instructions: Cellulitis (ED), Gout (ED) Prescriptions: New doxycycline hyclate 100 mg tablet 100 mg PO BID Qty: 14 0RF prednisone 20 mg tablet 20 mg PO BID Qty: 10 0RF No Action nitroglycerin 0.4 mg tablet, sublingual 0 mg sublingual Eliquis 2.5 mg tablet 2.5 mg PO BID furosemide 20 mg tablet 20 mg PO BID lisinopril 5 mg tablet 5 mg PO DAILY levothyroxine 125 mcg tablet 125 mcg PO DAILY amlodipine 2.5 mg tablet 2.5 mg PO DAILY alendronate 70 mg tablet 70 mg PO QWEEK (DME) V-GO 20 Device See Rx Instructions .ROUTE .MEDSUPPLY Qty: 30 Rx Instructions: As directed insulin aspart U-100 [Novolog U-100 Insulin aspart] 100 unit/mL solution subcut Referrals: Cassandra Tolentino MD [Primary Care Provider] - Catalina Lorenzo MD [Physician] - Print Language: Northern Irish
[2024-11-16 11:59] LABS: Basophils Percent Auto 0.2 % (0-2); Hematocrit 32.7 % (37.0-47.0); Hemoglobin 10.9 g/dl (12.0-16.0); Imm Gran Abs Auto 0.12 X10*3/uL (0.00-0.03); Imm Gran Pct Auto 0.7 % (0.0-0.4); Lymphocytes Absolute Auto 0.8 X10*3/uL (1.2-4.9); Lymphocytes Percent Auto 5.1 % (20-40); MANUAL DIFF FLAG SCAN; Mean Corpuscular HGB Conc 33.3 g/dl (31.0-35.0); Mean Corpuscular Volume 90.1 fL (80.0-98.0); Mean Platelet Volume 10.8 fL (9.4-12.3); Monocytes Absolute Auto 0.5 X10*3/uL (0.1-1.2); Neutrophils Absolute Auto 14.8 x10*3/uL (2.0-8.3); Platelet Count 300 X10*3/uL (160-400); Red Blood Count 3.63 X10*6/uL (4.20-5.50); Red Cell Distribution Width 13.9 % (11.0-16.0); SCAN SMEAR FLAG 1; White Blood Count 16.2 X10*3/uL (4.8-10.8)
[2024-11-16 12:18] LABS: SLIDE REVIEW VERIFIED
[2024-11-16 12:21] LABS: Alanine Aminotransferase 11 U/L (0-31); Alkaline Phosphatase 115 U/L (39-117); Anion Gap 14 (12-20); Aspartate Amino Transferase 18 U/L (5-31); Bilirubin Direct 0.2 mg/dL (0.0-0.5); Bilirubin Total 0.5 mg/dL (0.0-1.0); Blood Urea Nitrogen 39 mg/dL (9-16); C Reactive Protein 10.92 mg/dL (< or = 0.50); Calcium 8.5 mg/dL (8.4-10.2); Carbon Dioxide 25 mmol/L (22-29); Chloride 103 mmol/L (96-108); Estimated Glomerular Filt Rate 43; Glucose Random 233 mg/dL (60-115); Lipase 9 U/L (8-78); Potassium 3.9 mmol/L (3.3-5.1); Sodium 138 mmol/L (135-145); Total Protein 6.8 g/dL (6.5-8.0)
--- NOTE | 2024-11-16 12:21 | PC.NURSE ---
Away for radiology. Attempted IV access without success. 22g IV access to right wrist infiltrated shortly after obtaining access once flushed. Provider (Angle) aware. Labs that were drawn were sent, but unable to obtain all ordered labs. ESR & 2nd blood cultures remaining to be drawn. Called phlebotomy to attempt to draw remaining labs.
[2024-11-16 12:23] LABS: Lactic Acid 1.8 mmol/L (0.5-2.0)
[2024-11-16 12:27] LABS: Troponin-I High Sensitivity 4.2 ng/L (<3.5-17.0)
--- NOTE | 2024-11-16 12:29 | PC.NURSE ---
Spoke with , who will attempt to obtain IV access on this patient upon her return to ED 14. Away for xrays (see previous note). Care ongoing by this RN.
--- OUTSIDE RECORDS SUMMARY | 2024-11-16 12:32 | XMS_ITS | Patient Health Record ---
Author Organization [facility] Address [address] [address] Care Team Providers Care Multifocal Button Generator Name Role Phone Cassandra Tolentino MD Primary Care Provider Kelly Mari Unavailable [phone] Allergies Allergen (clinical drug ingredient) Drug/Non Drug Allergy documented on EMR Reaction Allergy Type Onset Date Status hydromorphone Dilaudid Unknown Drug Allergy Act atilio codeine Codeine Unknown Drug Allergy Active morphine Morphine Unknown Drug Allergy Active Results Component Value Reference Range Notes HEMOGLOBIN A1C (GLYCOHEMOGLO BIN) Reviewed date:10/06/2024 01:21:51 PM Interpretation: Performing Lab: Notes/Report: HEMOGLOBIN A1C % (HH) 10.0 Reason For Referral No Information Medications Medication SIG (Take, Route, Frequency, Duration) Notes Start Date End Date Status Alendronate Sodium A ctive Eliquis Active amLODIPine Besylate Active Furosemide Active Ferrous Sulfate Acti ve Magnesium Oxide Acti ve Levothyroxine Sodium Active Vitamin D Active Vitamin B12 Active Extra Depth Orthopedic Shoes (1 Pair) with Customized Heat Molded Multidensity Innersoles (3 Pair) as directed Dx: NIDDM/Polyneuropathy (E11.42), Hammertoe Foot Deformity (M20.41,M20.42), Preulcerative Skin Lesion(s) (L85.1 10/06/2024 Active Social History Tobacco Use: Social History Observation Description Date Details (start date - stop date) Never Smoker NA - NA Tobacco use other than smoking: Question Answer Notes Are you an other tobacco user? No Tobacco Control (Standard) Question Answer Notes Tobacco use: Nonsmoker Additional Findings: Tobacco non-user Current no nsmoker AUDIT-C (Standard) Question Answer Notes Did you have a drink containing alcohol in the p ast year? No Points 0 Interpretation Negative Problems Problem Type SNOMED Code ICD Code Onset Dates Problem Status W/U Status Risk Notes Problem Acquired hammer toe of right foot (9185585933066037 ) Other hammer toe(s) (acquired), right foot (M20.41) Active confirmed Problem Acquired hammer toe of left foot (8249810222872115 ) Other hammer toe(s) (acquired), left foot (M20.42) Active confirmed Problem Polyneuropathy due to type 2 diabetes mellitus (123910551) Type 2 diabetes mellitus with diabetic polyneuropathy (E11.42) Active confirmed Vital Signs Blood pressure diastolic 67 mm Hg 10/06/2024 Height 5ft 5in in 10/06/2024 Blood pressure systolic 126 mm Hg 10/06/2024 Weight 143 lbs 10/06/2024 BMI 23.79 kg/m2 10/06/2024 Procedures Procedure Date Ordered Date Performed Result Body Sit e 00522-HCIGHGO NAIL, 6 OR MORE 10/06/2024 N/A [id number] SKIN LESIONS, OVER 4 10/06/2024 N/A Encounters Encounter Location Date [facility] [address] [place] [id number] 10/06/2024 Kelly Burr Other hammer toe(s) (acquired), right foot M20.41 ; Other hammer toe(s) (acquired), left foot M20.42 ; Type 2 diabetes mellitus with diabetic polyneuropathy E11.42 and Tinea unguium B35.[address] [facility] [address] 07/16/2024 Kelly Burr [facility] [address] 09/02/2024 [facility] [address] 10/13/2024 Kelly Burr Assessments Encounter Date Diagnosis (ICD Code) Assessment Notes Treatment Notes Treatment Clinical Notes Section Notes 10/06/2024 Other hammer toe(s) (acquired), right foot (ICD-10 - M20.41) Patient Educated with: DIABETIC FOOT CARE INSTRUCTIONS. pdf (DIABETIC FOOT CARE INSTRUCTIONS. pdf) 10/06/2024 Other hammer toe(s) (acquired), left foot (ICD-10 - M20.42) 10/06/2024 Type 2 diabetes mellitus with diabetic polyneuropathy (ICD-10 - E11.42) 10/06/2024 Tinea unguium (ICD-10 - B35.1) Plan Of Treatment Pending Test Test Name Order Date 03153-CXUPTUN NAIL, 6 OR MORE 10/06/2024 [id number] SKIN LESIONS, OVER 4 10/06/19 Next Appt Details Provider Name:Kelly Ovalle kar, 01/22/2025 01:00:00 PM, [address] [facility], [address], [place], [address], Insurance Providers Payer Name Payer Address Payer Phone Subscriber Number Group Number Insured Name Patient Relationship to Insured Coverage Start Date Coverage End Date Medicare National [employer] [address] [facility] [place] [address] [id number] Tosin Gonzalez Self - patient is the insured 9 Medical (General) History Medical History History ICD Code Angina Arthritis Back,Hip,and Knee pain Broken bones Cancer Cataracts covid-19 Depression Diabetic Headaches/Migraines Heart disease High Blood Pressure Macular degeneration nerve disorder Numbness Poor circulation thyroid ulcer Vascular phlebitis (clots) Measles Mumps Chicken pox Joint implants/screws Transfusions Surgical History Surgery Date(Month/Year) hysterectomy left breast thyroid neck left side 2007 middle lobe of lung 2001 right hip 2022 toe sx 2008 Hospitalization History Reason Date(Month/Year) [facility]- high blood sugar 10/01/24
--- OUTSIDE RECORDS SUMMARY | 2024-11-16 12:33 | XMS_ITS ---
Author Organization [facility] Address [address] [place] [phone] Care Team Providers Care Auriculotherapist Name Role Phone Randa MOTA, Cassandra Primary Care Provider UnavailKelly Chau [phone] REASON FOR VISIT PHOTOGRAPH RETOUCHER PPWK Entered Encounters Encounter Location Date Provider Diagnosis [facility] [address] [place] [address] 09/02/2024 Kelly Burr Plan Of Treatment Next Appt Details Provider Name:Kelly lakhani, 01/22/2025 01:00:00 PM, [address] [facility] [place] [address], [place], [address], Progress Notes * Nicolás GONZALEZOB:1945 (78 yo F)Acc No.[id number]:09/02/2024 Patient:?Tosin GONZALEZ :1945???Age:78 Y???Sex:Female Address:[address] [place] [address] * true * Date:? Generated for Printi ng/Faxing/eTransmitting on:?11/16/2024 12:32 PM EST
--- OUTSIDE RECORDS SUMMARY | 2024-11-16 12:33 | XMS_ITS ---
Author Organization [facility] Address [address] [place] [id number] Care Team Providers Care Machine Stripper Cutter Name Role Phone Randa MOTA, Cassandra Primary Care Provider Kelly Mari [phone] REASON FOR VISIT r/s 01/19 Encounters Encounter Location Date Provider Diagnosis [facility] [address] [place] [address] 10/13/2024 Kelly Burr Plan Of Treatment Next Appt Details Provider Name:Kelly lakhani, 01/22/2025 01:00:00 PM, [address] [facility], [place] [address], [place], [address], Progress Notes * Nicolás GONZALEZOB:1945 (79 yo F)Acc No.[id number]:10/13/2024 Patient:?Tosin GONZALEZ :1945???Age:79 Y???Sex:Female Address:[place] [address] [address] * true * Date:? Generated for Printi ng/Faxing/eTransmitting on:?11/16/2024 12:32 PM EST
--- OUTSIDE RECORDS SUMMARY | 2024-11-16 12:33 | XMS_ITS ---
Author Organization [facility] Address [address] [place] [address] Care Team Providers Care French Lecturer Name Role Phone Cassandra Tolentino MD Primary Care Provider Kelly Mari Unavailable [phone] Allergies Allergen (clinical drug ingredient) Drug/Non Drug Allergy documented on EMR Reaction Allergy Type Onset Date Status hydromorphone Dilaudid Unknown Drug Allergy Act atilio codeine Codeine Unknown Drug Allergy Active morphine Morphine Unknown Drug Allergy Active REASON FOR VISIT Toe Irritation, At Risk Footcare Medications Medication SIG (Take, Route, Frequency, Duration) Notes Start Date End Date Status Alendronate Sodium A ctive Eliquis Active amLODIPine Besylate Active Ferrous Sulfate Acti ve Extra Depth Orthopedic Shoes (1 Pair) with Customized Heat Molded Multidensity Innersoles (3 Pair) as directed Dx: NIDDM/Polyneuropathy (E11.42), Hammertoe Foot Deformity (M20.41,M20.42), Preulcerative Skin Lesion(s) (L85.1 10/06/2024 Active Furosemide Active Magnesium Oxide Acti ve Levothyroxine Sodium Active Vitamin D Active Vitamin B12 Active Social History Tobacco Use: Social History [...] Problem Acquired hammer toe of right foot (5523023575918628 ) Other hammer toe(s) (acquired), right foot (M20.41) Active confirmed Problem Acquired hammer toe of left foot (1449514025433064 ) Other hammer toe(s) (acquired), left foot (M20.42) Active confirmed Problem Polyneuropathy due to type 2 diabetes mellitus (666822211) Type 2 diabetes mellitus with diabetic polyneuropathy (E11.42) Active confirmed Vital Signs Height 5ft 5in in 10/06/2024 Weight 143 lbs 10/06/2024 BMI 23.79 kg/m2 10/06/2024 Blood pressure systolic 126 mm Hg 10/06/19 25 Blood pressure diastolic 67 mm Hg 025 Procedures Procedure Date Ordered Date Performed Result Body Sit e 78792-ATFTDGB NAIL, 6 OR MORE 10/06/2024 N/A 88803-FWNX SKIN LESIONS, OVER 4 10/06/2024 N/A Encounters Encounter Location Date Provider Diagnosis [facility] [address] [address] 10/06/2024 Kelly Burr Other hammer toe(s) (acquired), right foot M20.41 ; Other hammer toe(s) (acquired), left foot M20.42 ; Type 2 diabetes mellitus with diabetic polyneuropathy E11.42 and Tinea unguium B35.1 Assessments Encounter Date Diagnosis (ICD Code) Assessment [...] unguium (ICD-10 - B35.1) Plan Of Treatment Medication Medication Name Sig Start Date Stop Date Notes Extra Depth Orthopedic Shoes (1 Pair) with Customized Heat Molded Multidensity Innersoles (3 Pair) as directed Dx: NIDDM/Polyneuropathy (E11.42), Hammertoe Foot Deformity (M20.41,M20.42), Preulcerative Skin Lesion(s) (L85.1 10/06/2024 Treatment Notes Assessment Notes Other hammer toe(s) (acquired), right fo ot Patient Educated with: DIABETIC FOOT CARE INSTRUCTIONS.pdf (DIABETIC FOOT CARE INSTRUCTIONS.pdf) Pending Test Test Name Order Date 89728-ADVXNMA NAIL, 6 OR MORE 10/06/2024 11100-EBOC SKIN LESIONS, OVER 4 10/06/19 25 Next Appt Details Follow Up: 3 Months, Reason: Provider Name:Kelly lakhani, 01/22/2025 01:00:00 PM, [address], [place], [address], Procedure Notes * Category Sub-Category Detail Notes Debride Nail 6-10 Nail debridement Due to the cl inical pathology outlined in the exam findings, performance of this nail treatment is medically necessary as its management by an unskilled/untrained nonprofessional would put this patients foot and overall health at risk. Therefore, debridement to affected nail(s), as described in exam ( TA, T1, T2, T3, T4, T5, T6, T7, T8, T9, ), was performed exclusively by the physician of record to reduce/remove overall nail length, girth, thickness, subungual debris, and necrotic tissue, by manual and/or electrical means through the use of a nail nipper and/or dremel-type universal grinder operator, to a more viable healthy nail plate or bed tissue 6-10 nails in total. Silver nitrate was used for any petechial bleeding as necessary. Definitive antifungal treatment options, both pharmaceutical and surgical, have been reviewed and discussed with the patient. The patient solely prefers the use of intermittent/as needed professional debridement services for their nail condition and understands the need for additional periodic treatments to maintain effectiveness in symptomatic relief - 70161 Keratoma Treatment Parring or Cutting o f Benign Hyperkeratotic Lesion(s) (-57) More than 4 Lesions - Due to the at risk nature of the patients medical condition as documented in the exam findings, performance of this keratoderma treatment is medically necessary as its management by an unskilled/untrained nonprofessional would put this patients foot and overall health at risk. Therefore, the benign hyperkeratotic lesions, ( 5 ) in total, locations as stated and described in the exam ( plantar heels B/L, sub 1st metatarsal head b/l, sub 3rd metatarsal head, RIGHT), were pared, and/or cut utilizing a sterile 15 blade, tissue nippers, and/or power dremel instrumentation by the physician of record - 89149 Progress Notes * Nicolás GONZALEZOB:1945 (78 yo F)Acc No.[id number]:10/06/2024 Progress Notes Patient:?Tosin GONZALEZ Provider:?Kelly Burr DPM :1945???Age:78 Y???Sex:Female D ate:10/06/2024 Address: [address], [facility], [facility] Pcp:Cassandra Tolentino MD Subjective: * Chief Complaints: * ???Toe IrritationAt Risk Susan tcare * HPI: ???Toe pain:?Location:?B/L feet.?Duration:?several years.?Course:?worse.?Aggravated by:?shoes, any pressure.?Treatments:?change in shoes.?At Risk footcare:?Pt States Last PCP Visit:?Date?09/10/2024 * ROS:?General/Constitutional:?Nausea?denies.?Vomiting?denies.?Hunger Thirst?denies.?Loss appetite?denies.?Chills?denies.?Fatigue?denies.?Fever?denies.?Night Sweats?denies.?Unexplained weight loss?denies.?Unexplained weight gain?denies.?HEENTM:?Dentures?admits.?Dizziness?denies.?Glasses/contacts?admits.?Retinopathy?de nies.?Blurred/double vision?denies.?TMJ?denies.?Discharge/drainage?denies.?Implants?denies.?Sore throat?denies.?Dental implants?denies.?Hard of hearing ?admits.?Difficulty chewing/swallowing/speaking?admits.?Nose bleeds?denies.?Sore mouth?denies.?Respiratory:?On Oxygen?denies.?Pneumonia/pleurisy?denies.?Bronchitis?denies.?Emphysema?denies.?C oughing?denies.?Cough blood?denies.?Shortness of breath?denies.?Wheezing?denies.?Cardiovascular:?Pacemaker?denies.?MVP?denies.?WPW?denies.?CHF?denies.?Heart attack?denies.?Septal defect?denies.?Rapid beat?denies.?Chest pain ?denies.?Atrial Fib.?denies.?Murmur/Palpitations?denies.?Gastrointestinal:?Hemorrhoids?denies.?Stomach/Abdominal pain?denies.?Dark blood stool?denies.?Irritable bowel ?denies.?Constipation?denies.?Diarrhea?denies.?Hematology:?Swelling?admits.?Clots?Admits.?Varicose Veins?admits.?Bruising?admits.?Bleeding problem?denies.?Genitourinary:?Blood urine?denies.?Frequent/Painfu/urination/bladder control?denies.?Kidney stones?denies.?Infection (UTI)?denies.?Nephropathy?denies.?sex trans dis (STD)?denies.?Prostate?denies.?Musculoskeletal:?Hammertoes?admits.?Bunions?admits.?Back Pain?admits.?Muscle Cramps/ Resting?denies.?Muscle cramps / walking?admits.?Generalized aches and pains?admits.?Weakness?admits.?Integ.:?Dyson?denies.?Scars?denies.?Corns/calluses?denies.?Ingrown nails?denies.?Painful nails?denies.?Open Sores?denies.?Rashes?denies.?Neurologic:?Difficulty sleeping?denies.?Brain disorder?denies.?Numbness?admits.?Balance trouble?admits.?Confusion?admits.?Fainting/blackouts?denies.?Tingling?admits.?Tr emors?admits.? * Medical History:? * Surgical History:?hysterecto my left breast thyroid neck left side 2008middle lobe of lung 2002right hip 202toe sx 2008 * Hospitalization/Major Diagno stic Procedure:?[facility]- high blood sugar 10/01/24 * Family History:?Mother: dece ased.?Father: .?Maternal Grand Mother: stroke, high blood pressure, poor circulation.?Maternal Grand Father: heart attack.? * Social History:?Tobacco Use:?Tobacco use other than smoking?Are you an other tobacco user??No ?Tobacco Control (Standard)?Tobacco use:?Nonsmoker ?Additional Findings: Tobacco non-user?Current nonsmoker ???Drugs/Alcohol:?Drugs?Have you used drugs other than those for medical reasons in the past 12 months??No ???Miscellaneous:?Caffeine: yes. ?Children: yes, 3. ?Exercise: no. ?Marital status: Single. ???Drug/Alcohol:?AUDIT-C (Standard)?Did you have a drink containing alcohol in the past year??No ?Points?0 ?Interpretation?Negative * Medications:?TakingVitamin D Vitamin B12 Magnesium Oxide Levothyroxine Sodium Furosemide Ferrous Sulfate Eliquis amLODIPine Besylate Alendronate Sodium Medication List reviewed and reconciled with the patientTaking Vitamin D Taking Vitamin B12 Taking Magnesium Oxide Taking Levothyroxine Sodium Taking Furosemide Taking Ferrous Sulfate Taking Eliquis Taking amLODIPine Besylate Taking Alendronate Sodium Medication List reviewed and reconciled with the patient * Allergies:?MorphineDilaudidC odeineyes[Allergies Verified] Objective: * Vitals:?Ht: 5ft 5in, Wt: 143 , BMI: 23.79, Shoe size: 8.5W, BP: 126/67 mm Hg, BS: 134, Ht-cm: 165.1 cm, Wt-k.86 kg. * ???Past Orders: ???Lab:HEMOGLOBIN A1C (GLYCO HEMOGLOBIN) (Order Date - 10/06/2024) (Collection Date & Time - 10/06/2024 01:21 PM) ? Value Reference Range ?HEMOGLOBIN A1C % (HH) 10.0 * Examination: ???Ophthalmology Referral: ?DIABETES EYE EXAM?Orthopedic: ?MUSCLE STRENGTH:?5/5 all groups in a symmetrical fashion, B/L.?DIGITAL DEFORMITIES:?Digital contracture, PIPJ, 2-5 B/L, incompl-reducible to push-up test, no over, nor underlapping,?there is?evidence of shoe producing skin irritation.?FOOTWEAR:?worn, non-supportive, shoe gear properties exacerbate patient's foot/toe deformity.?General Examination: ?GENERAL APPEARANCE:?Reveals a pleasant, alert, well nourished, well- developed, well hydrated individual, who demonstrates proper attention to hygiene/body habitus, and is in no acute distress, Pt serves as own historian for office visit today.?ORIENTED:?person, place, and time.?FOOT EXAM:?Footwear Evaluation?Neurological: ?SENSORY:? Neurological exam demonstrates, reduced light touch sensation, reduced sharp/dull pin prick discrimination , B/L, 5.07 monofilament test performed at plantar aspects of 5 varied sites per foot shows sensation, reduced , B/L.?Nails: ?NAILS are:?Elongated, overgrown, dystrophic, lytic, greater than 3mm thick, discolored and friable with crumbly malodorous subungual debris, TA, T1, T2, T3, T4, T5, T6, T7, T8, T9.?Dermatologic: ?SKIN FINDINGS:?Skin exam reveals Keratotic lesion(s) located at plantar heels B/L, sub 1st metatarsal head b/l, sub 3rd metatarsal head, RIGHT.?Vascular: ?DP PULSES (B):?0/4, B/L.?PT PULSES (B):?0/4, B/L.?CAPILLARY FILL TIME:?delayed, all digits, B/L.?TROPHIC CONDITION-TEXTURE/ELASTICITY/TURGOR/HAIR GROWTH (B):?decreased, B/L.?TEMPERTURE GRADIENT (C):?decreased, cool to cool, proximal to distal, B/L.? Assessment: * Assessment: 1.?Other hammer toe(s) (acqu ired), right foot - M20.41 (Primary)???Specify :Chronic problem, Worse (4),Rx Management (4)???2.?Other hammer toe(s) (acquired), left foot - M20.42???Specify :Chronic problem, Worse (4),Rx Management (4)???3.?Type 2 diabetes mellitus with diabetic polyneuropathy - E11.42???4.?Tinea unguium - B35.1??? Plan: * Treatment: 2.?Type 2 diabetes mellitus with diabetic polyneuropathy?Procedure: 96079-FWNWLIY NAIL, 6 OR MORE ?Procedure: 48372-IYSG SKIN LESIONS, OVER 4 * Procedures:?Debride Nail 6-10:?Nail debridement?Due to the clinical pathology outlined in the exam findings, performance of this nail treatment is medically necessary as its management by an unskilled/untrained nonprofessional would put this patients foot and overall health at risk. Therefore, debridement to affected nail(s), as described in exam ( TA, T1, T2, T3, T4, T5, T6, T7, T8, T9, ), was performed exclusively by the physician of record to reduce/remove overall nail length, girth, thickness, subungual debris, and necrotic tissue, by manual and/or electrical means through the use of a nail nipper and/or dremel-type universal grinder operator, to a more viable healthy nail plate or bed tissue 6- 10 nails in total. Silver nitrate was used for any petechial bleeding as necessary. Definitive antifungal treatment options, both pharmaceutical and surgical, have been reviewed and discussed with the patient. The patient solely prefers the use of intermittent/as needed professional debridement services for their nail condition and understands the need for additional periodic treatments to maintain effectiveness in symptomatic relief - 33524.?Keratoma Treatment:?Parring or Cutting of Benign Hyperkeratotic Lesion(s)?(-57) More than 4 Lesions - Due to the at risk nature of the patients medical condition as documented in the exam findings, performance of this keratoderma treatment is medically necessary as its management by an unskilled/untrained nonprofessional would put this patients foot and overall health at risk. Therefore, the benign hyperkeratotic lesions, ( 5 ) in total, locations as stated and described in the exam ( plantar heels B/L, sub 1st metatarsal head b/l, sub 3rd metatarsal head, RIGHT), were pared, and/or cut utilizing a sterile 15 blade, tissue nippers, and/or power dremel instrumentation by the physician of record - 07952.? * Procedure Codes:?82067 DEBRI DE NAIL, 6 OR MORE, Modifiers: XS 78170 TRIM SKIN LESIONS, OVER 4, Modifiers: XS * Preventive Medicine:? ??Counseling:?Discussion:?-14: Office or other outpatient visit for the evaluation and management of an established patient, which required a medically appropriate history and/or examination and MODERATE level of DECISION MAKING for: 1 OR MORE CHRONIC PROBLEM(S) THATS WORSENING, 2 STABLE CHRONIC PROBLEMS, A NEWLY DIAGNOSED PROBLEM WITH UNCERTAIN PROGNOSIS, AN ACUTE COMPLICATED INJURY WITH MULTIPLE TREATMENT OPTIONS, OR AN ACUTE PROBLEM WITH ACCOMPANYING SYSTEMIC SYMPTOMS, THAT POSE(S) A MODERATE RISK OF MORBIDITY. THIS CONDITION MAY ALSO INCLUDE RX DRUG MANAGEMENT, OR A DECISON FOR MINOR SURGERY. The visit on the day of the encounter encompassed interpreting the data and educating the patient as to the nature of their condition, treatment options available according to their individual PMH, meds, allergies, and overall health/living conditions, as well as any potential risks or complications that may occur from a failure to adhere to, and participate in, the recommended course of therapy. The discussion included a complete verbal, and/or written explanation of the examination results, any x-rays taken, the proposed diagnosis, and outline of the treatment plan. A schedule for future care needs was also explained. The patient verbalized an understanding of the instructions at this time and agreed to be an active participant in their treatment. If the patient should think of any questions or concerns after the visit, I have encouraged the patient to call the office.?Digital Surgery:?Digital surgery was discussed with the patient, We elected to try conservative treatment at the present time, due to the patients medical history and increased asssociated post-operative risks.?Digital Treatment:?HT- I explained to the patient the possible etiologies of Hammertoes, including genetics/foot type/shoegear/activity level/exercise routine and the risks/benefits of all the different treatment options for their pain including: No treatment at all, Rest, Ice, New/supportive/wider/deeper Shoegear, Digital Padding/Strapping/Taping/Bracing/Gel protective sleeves, Foot/Ankle AFO Bracing, Stretching exercises, Deep Tissue Massage, Arch support/shoe inserts with splay metatarsal padding, and Custom orthoses. I insisted that any digital devices be removed daily and not worn overnight for safety. The patient is to carefully examine the toes daily for any skin irritation while using any splinting or padding device. The advantages and disadvantages of each option were discussed and the patients questions re: shoegear, padding, custom vs prefabricated inserts, activity level, and consistency in home treatment regimens for optimal success were answered to their verbally confirmed satisfaction.?Shoe Gear Counseling:?SHOE Rx - The patient was counseled in great detail on their muscoloskeletal foot and toe deformities which coincided with the dermatological presentations visualized on exam. We discussed how their deformities put the integrity of their feet at risk for potential pedal complications which makes the accomidative diabetic shoes and cutomizable inserts medically necessary. We discussed the different shoe and insert treatment types and options, as well as the important advantages for adhering to regularly wearing these accomidative devices daily. The patient was made aware of the fact that a failure to abide by these recommedations may be deleterious to their foot health as they are able to prevent many pedal complications such as skin irritation, skin ulceration, infection, and even loss of toe/foot/leg/or life. Time was also spent with the patient dispensing and discussing proper diabetic footcare techniques including daily skin moisturization, daily foot inspection for any interruption in skin integrity including open lesions, or sign of infection such as redness/malodor/drainage/swelling. Also discussed and recommended were procedures regarding daily shoe inspection for the presence of internal foreign bodies as well as any visualized irregular shoe or insert wear. Patient questions re: shoes, inserts, and self foot inspections were answered to their satisfaction as the patient verbally confirmed a full understanding of the above information. A Rx for Extra Depth Orthopedic Shoes with 3 pair of custom heat-molded inserts was dispensed.?Ulcer:?.? ??Screening/Special Tests:?Fall Risk?Screening:?No falls in the past year ?FALLS: Screening for Future Fall Risk?Have you had any falls with injury in the past year??No * Follow Up:?3 Months * Images: * Sign off status: Completed true * Provider:?Kelly Burr DPM Date:?0 10/06/2024 Generated for Obdulio ratliff/Garrett/Normanitting on:?11/16/2024 12:32 PM EST History and Physical Notes * HPI (History of Present Illness) Category Sub-Category Detail Notes Category Not es Toe pain Location: B/L feet Duration: several years Course: worse Aggravated by: shoes, any pressure Treatments: change in shoes At Risk footcare Pt States Last PCP Visit: Date: 4 Examination Category Sub-Category Detail Notes Category Not es Neurological SENSORY: Neurological exa m demonstrates, reduced light touch sensation, reduced sharp/dull pin prick discrimination , B/L, 5.07 monofilament test performed at plantar aspects of 5 varied sites per foot shows sensation, reduced , B/L Dermatologic SKIN FINDINGS: Skin exam reveal s Keratotic lesion(s) located at plantar heels B/L, sub 1st metatarsal head b/l, sub 3rd metatarsal head, RIGHT Orthopedic FOOTWEAR: worn, non-suppor tive, shoe gear properties exacerbate patient's foot/toe deformity DIGITAL DEFORMITIES: Digital contracture , PIPJ, 2-5 B/L, incompl-reducible to push-up test, no over, nor underlapping, there is evidence of shoe producing skin irritation MUSCLE STRENGTH: 5/5 all groups in a symmetrical fashion, B/L General Examination GENERAL APPEARANCE: Reveals a pleasant, alert, well nourished, well-developed, well hydrated individual, who demonstrates proper attention to hygiene/body habitus, and is in no acute distress, Pt serves as own historian for office visit today FOOT EXAM: Lower Extremity Neurological Exa m performed:: Yes Date 10/06/24 Visual exam of foot performed:: Yes Date: 10/06/2024 Sensory testing performed:: sensations d iminished Sensory and motor testing performed:: [facility] Pedal pulse taking performed:: absent ORIENTED: person, place, and t yolanda Footwear Evaluation Footwear Evaluation performe d:: Yes Ophthalmology Referral DIABETES EYE EXAM Procedure Perform ed:: No Vascular DP PULSES (B): 0/4, B/L PT PULSES (B): 0/4, B/L CAPILLARY FILL TIME: delayed, all digits , B/L TEMPERTURE GRADIENT (C): decreased, cool to cool, proximal to distal, B/L TROPHIC CONDITION-TEXTURE/ELASTICITY/TURGOR/HAIR GROWTH (B): decreased, B/L PIGMENTATION: Nails NAILS are: Elongated, overg rown, dystrophic, lytic, greater than 3mm thick, discolored and friable with crumbly malodorous subungual debris, TA, T1, T2, T3, T4, T5, T6, T7, T8, T9
--- OUTSIDE RECORDS SUMMARY | 2024-11-16 12:33 | XMS_ITS | Clinical Summary ---
Author Organization [facility] Facility Address [address] [place] [address], [place] [address] Care Team Providers Care Baggageman Name Role Phone Cassandra Tolentino MD Primary Care Provider [phone] Medications amLODIPine (NORVASC) 5 MG tablet Take 5 mg by mouth 1 (one) time each day Active aspirin (ST KARY) 81 MG EC tablet Take 81 mg by mouth 1 (one) time each day Active Glucagon (Baqsimi One Pack) 3 MG/DOSE powder Administer into affected nostril(s) Active ergocalciferol 1.25 MG (91181 UT) capsule Take 50,000 Units by mouth 1 (one) time per week Active ferrous sulfate 325 (65 Fe) MG tablet Take 325 mg by mouth 1 (one) time each day with breakfast Active furosemide (LASIX) 40 MG tablet Take 40 mg by mouth in the morning and 40 mg in the evening. Active levothyroxine (SYNTHROID, LEVOTHROID) 125 MCG tablet Take 125 mcg by mouth 1 (one) time each day Active lidocaine (LIDODERM) 5 % patch Apply 1 patch topically 1 (one) time each day Remove & discard patch within 12 hours or as directed by MD. Active Magnesium 400 MG capsule Take 1 tablet by mouth 1 (one) time each day Active nitroglycerin (NITROSTAT) 0.[address] 0.4 mg under the tongue every 5 (five) minutes if needed for chest pain Active insulin NPH, Isophane, (HumuLIN,NovoLI N) 100 UNIT/ML injection Inject under the skin 2 (two) times a day before meals Active apixaban (ELIQUIS) 2.5 MG tablet Take 2.5 mg by mouth in the morning and 2.5 mg in the evening. Active Melatonin ER 3 MG tablet controlled-rele ase Take by mouth Active midodrine (PROAMATINE) 5 MG tablet Take 5 mg by mouth in the morning and 5 mg in the evening and 5 mg before bedtime. Active Ondansetron HCl 4 MG/2ML solution prefilled syringe Inject as directed Active senna (SENOKOT) 8.6 MG tablet Take 1 tablet by mouth 1 (one) time each day Active polyethylene glycol (GLYCOLAX) 17 g packet Take 17 g by mouth 1 (one) time each day Active PROCHLORPERAZIN E EDISYLATE IJ Inject as directed Active Active Problems Problem Noted Date Diagnosed Date Type 2 diabetes mellitus with diabetic nephropat hy 02/06/2023 Stage 3b chronic kidney disease 02/06/2023 Anemia of renal disease 02/06/2023 Secondary hyperparathyroidism of renal origin Hyperkalemia 02/06/2023 Distal renal tubular acidosis 02/06/2023 Essential (primary) hypertension 02/06/2023 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, not otherwise specified 02/06/2023 Family History Medical History Relation Comments Hypertension Mother GM Relation Status Comments Father Mother Social History Tobacco Use Types Packs/Day Years Used Date Smoking Tobacco: Never Tobacco Cessation:Counseling Given: Not Answered Alcohol Use Standard Drinks/Week Comments No 0 (1 standard drink = 0.6 oz pur e alcohol) Comments Unknown Sex and Gender Information Value Date Recorded Sex Assigned at Not on file Legal Sex Female 5:23 PM EST Gender Identity Not on file Sexual Orientation Not on file Last Filed Vital Signs Vital Sign Reading Time Taken Comments Blood Pressure 120/60 02/06/2023 2:56 PM EDT Pulse 87 02/06/2023 2:56 PM EDT Temperature - - Respiratory Rate - - Oxygen Saturation - - Inhaled Oxygen Concentration - - Weight 75.8 kg (167 lb) 02/06/2023 2:56 PM EDT Height - - Body Mass Index - - Plan of Treatment Health Maintenance Due Date Last Done Comments Pneumococcal Vaccine: 65+ Years (2 of 2 - PPSV23 or PCV20) 11/20/2016 09/25/2016 Diabetes: Ophthalmology Exam 10/23/2020 Diabetes: Pedal Pulse Checked 10/23/2020 Diabetes: Sensory Foot Exam 10/23/2020 Diabetes: Visual Foot Exam 10/23/2020 Diabetes: Hemoglobin A1C 01/22/2024 10/24/2023 Influenza Vaccine (#1) 2024 8, 06/07/2010, 06/23/2009 Hepatitis B Vaccine Aged Out No longe r eligible based on patient's age to complete this topic Procedures Procedure Name Priority Date/Time Associated Diagnosis Comments HEMOGLOBIN A1C Routine 10/24/2023 10:43 AM EST Type 2 diabetes mellitus with diabetic nephropathy (HCC) Stage 3b chronic kidney disease (HCC) Essential (primary) hypertension Anemia of renal disease Secondary hyperparathyroidism of renal origin (HCC) Hyperkalemia 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 DIAGNOSTIC USE: ??The [place] Diabetes Association (ADA) and the World Health Organization (WHO) recommend the use of HbA1c to diagnose diabetes using a threshold of 6.5%. Patients who have an HbA1c between 5.7% and 6.4% are considered at increased risk for developing diabetes in the future. CAUTION: Falsely low HbA1c results may be observed in patients with hemolytic anemia, homozygous forms of abnormal hemoglobin (e.g. SS, CC, SC), , recent blood loss or hemoglobin F greater than 7%. Fructosamine may be used as an alternate test in these cases. REFERENCE: ADA: Standards of Medical Care in Diabetes 2020, The Journal of Clinical and Applied Research and Education Volume 43, Supplement 1 Testing performed or reported by [facility], a Service of [facility], [address] [place] [address] Charli Ortiz MD, P[employer] [facility]# [id number] Blood (Blood, Venous) 10/24/2023 10:43 AM EST 10/24/2023 11:05 AM EST us Geovanny Allen MD LAB BLOOD ORDERABLES Marielle pat Result [facility] from Last 3 Months or Most Recently Relevant to Health Maintenance Insurance MEDIC[place] Care Teams Baggageman Relationship Specialty Start Date End Date Cassandra Tolentino MD [address] [place], [place] PCP - General 10/03/20
--- OUTSIDE RECORDS SUMMARY | 2024-11-16 12:33 | XMS_ITS | Clinical Summary ---
Author Organization [facility] ity Address [address] [place] [address] Care Team Providers Care Departmental Shipping Clerk Name Role Phone Cassandra Tolentino MD Primary Care Provider [phone] Social History Tobacco Use Types Packs/Day Years Used Date Smoking Tobacco: Never Assessed Comments Unknown Sex and Gender Information Value Date Recorded Sex Assigned at Not on file Legal Sex Female 9:45 AM EST Gender Identity Not on file Sexual Orientation Not on file Plan of Treatment Health Maintenance Due Date Last Done Comments DTaP,Tdap,and Td Vaccines (1 - Tdap) 1962 Pneumococcal Vaccine: 50+ Ye ars (1 of 1 - PCV) 1993 Zoster Vaccines (1 of 2) 1993 RSV Immunization Patients 60 + Years Old (1 - 1-dose 75+ series) 2018 COVID-19 Vaccine (2023-2 5 season) 2024 Influenza Vaccine (#1) 2024 HIB Vaccines Aged Out No longer eligi ble based on patient's age to complete this topic HPV Vaccines Aged Out No longer eligi ble based on patient's age to complete this topic Hepatitis A Vaccines Aged Out No long er eligible based on patient's age to complete this topic Hepatitis B Vaccines Aged Out No long er eligible based on patient's age to complete this topic IPV Vaccines Aged Out No longer eligi ble based on patient's age to complete this topic MMR Vaccines Aged Out No longer eligi ble based on patient's age to complete this topic Meningococcal ACWY Vaccine Aged Out N o longer eligible based on patient's age to complete this topic Meningococcal B Vacine Aged Out No lo nger eligible based on patient's age to complete this topic RSV Immunization Patients Un vimal 20 months Aged Out No longer eligible b ased on patient's age to complete this topic Varicella Vaccines Aged Out No longer eligible based on patient's age to complete this topic Care Teams Departmental Shipping Clerk Relationship Specialty Start Date End Date Cassandra Tolentino MD [address] [place] [id number] PCP - General Internal Medicine 07/03/18
[2024-11-16 12:46] LABS: Influenza A PCR NEGATIVE (Negative); Influenza B PCR NEGATIVE (Negative); Resp Syncy Virus RNA Qual PCR NEGATIVE (Negative); SARS COV2 PCR INHOUSE NEGATIVE (Negative)
--- NOTE | 2024-11-16 12:48 | PC.NURSE ---
Patient returned from xray. Phlebotomy staff at bedside attempting to draw remaining labs at this time.
[2024-11-16 12:49] LABS: B Type Natriuretic Peptide 201 pg/mL (<100)
[2024-11-16 13:11] VITALS: BP 134/68; PULSE 84; RESP 17; TEMP 36.9
--- NOTE | 2024-11-16 13:25 | PC.NURSE ---
Ananda HarveyRN able to obtain IV access with ultrasound guidance, with labs.
[2024-11-16] MEDS: Piperacillin Sodium/Tazobactam 3.375 GM in 0.9 % Sodium Chloride 50 ML IV (13:31)
[2024-11-16] MEDS: predniSONE 20 MG TABLET 60 MG PO (13:32)
--- NOTE | 2024-11-16 13:43 | PC.NURSE ---
Was unable to scan Prednisone (unknown reason, barcode intact, etc). Given three Prednisone 20mg tablets (60mg total).
[2024-11-16 13:55] LABS: Erythrocyte Sedimentation Rate 83 MM/HR (0-20)
[2024-11-16 14:41] VITALS: BP 140/71; PULSE 72; RESP 14; TEMP 36.7; O2SAT 96
[2024-11-16 15:53] VITALS: BP 151/78; PULSE 79; RESP 18; TEMP 37.1; O2SAT 94
--- NOTE | 2024-11-16 16:11 | PC.NURSE ---
Plan to discharge home, per with follow up with PCP/specialist.
[2024-11-16 17:06] VITALS: BP 151/78; PULSE 79; RESP 18; TEMP 37.1; O2SAT 94
== END 2024-11-16 17:06 | disposition home or self-care (01) ==
PROVIDERS: Emergency Provider Emergency Medicine; PCP Internal Medicine
DX: L03.114 Cellulitis of left upper limb (principal); R51.9 Headache, unspecified; M54.2 Cervicalgia; M79.10 Myalgia, unspecified site; R94.31 Abnormal electrocardiogram [ECG] [EKG]; M19.042 Primary osteoarthritis, left hand; M79.642 Pain in left hand; M79.641 Pain in right hand; R10.2 Pelvic and perineal pain; Z03.818 Encounter for observation for suspected exposure to other biological agents ruled out; Z79.899 Other long term (current) drug therapy
CPT/HCPCS: 0241U; 36415; 70450; 71045; 73120; 73502; 80048; 80076; 83605; 83690; 83880; 84484; 85025; 85652; 86140; 87040; 93005; 96365; 99284; 99285; J2543

== ENCOUNTER → 2024-11-16 11:22 | Outpatient (BNV) | payer MEDICARE, MEDICAID, SELFPAY | PROVIDERS: Emergency Provider Emergency Medicine; PCP Internal Medicine; Visit Provider Radiology Diagnostic Radiology | DX: R51.9 Headache, unspecified (principal); S79.911A Unspecified injury of right hip, initial encounter; M79.18 Myalgia, other site; M79.642 Pain in left hand; M79.641 Pain in right hand | CPT/HCPCS: 70450; 73502 ==

== ENCOUNTER → 2024-11-16 11:23 | Outpatient (BNV) | payer MEDICARE, MEDICAID, SELFPAY | PROVIDERS: Emergency Provider Emergency Medicine; PCP Internal Medicine; Visit Provider Internal Medicine | DX: I49.1 Atrial premature depolarization (principal) | CPT/HCPCS: 93010 ==

== ENCOUNTER 2024-12-22 12:37 | Emergency (ER) | payer MEDICARE, MEDICAID, SELFPAY ==
--- NOTE | ~2024-12-22 | XR_ITS ---
CLINICAL HISTORY: heel pressure ulcer ?osseous involvement 3 view right foot Comparison: None Findings: Bones intact. No dislocations. Joint space narrowing and periarticular osteophyte formation at the 1st metatarsophalangeal joint as well as the interphalangeal joints of the digits. Periarticular osteophyte formation at the tibiotalar, talonavicular, naviculocuneiform, and subtalar joints. Calcaneal spurring. Metatarsus primus varus. Hardware within the 1st and 2nd digits. No ankle effusion. No radiopaque foreign body. IMPRESSION: 1. No acute findings. This document has been electronically signed by: Kitty Basurto MD on 12/22/2024 18:41:45
--- NOTE | ~2024-12-22 | CT_ITS ---
EXAMINATION: CT HEAD WITHOUT CONTRAST CLINICAL INFORMATION: Slurred speech, weakness, on anticoagulation. COMPARISON: 11/16/2024. TECHNIQUE: Contiguous axial imaging was performed from the skull base to vertex without intravenous administration of contrast. This CT examination was performed using dose optimization techniques as appropriate, variously including the following: *Automated exposure control *Adjustment of mA and/or kV according to patient size (this includes techniques or standardized protocols for targeted exams where dose is matched to indication/reason for exam; i.e. extremities or head) *Use of iterative reconstruction technique FINDINGS: There is no evidence of intracranial hemorrhage or extra-axial fluid collection. There is no mass effect, or edema. No CT evidence of acute territorial infarct. Ventricles, sulci, and cisterns are normal in size and configuration for patient age. No hydrocephalus. No midline shift. Negative hyperdense MCA sign. Negative insular ribbon sign. Patchy periventricular and deep white matter hypoattenuation is consistent with moderate small vessel ischemic changes. 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 Atheromatous calcification of the bilateral carotid siphons and V4 segments vertebral arteries bilaterally. Globes and orbital contents image normally. There are bilateral lens replacements. No extracranial soft tissue abnormalities. The paranasal sinuses, mastoid air cells, and tympanic cavities are normally aerated. No suspicious bony abnormalities. There are no acute fractures evident. CT/CT head/brain wo IV con IMPRESSION: 1. No acute intracranial abnormality. 2. Chronic white matter changes as discussed. Electronically signed by: Shubham Garcia MD 12/22/2024 03:50 PM EDT RP
[2024-12-22 12:42] VITALS: BP 160/75; PULSE 74; RESP 18; TEMP 36.5; O2SAT 99; BMI 25.7
--- NOTE | 2024-12-22 12:44 | ED_ITS ---
HPI - General Adult General Chief complaint: General Medical Stated complaint: slurred Speech, shakes, BS abnormal Time Seen by Provider: 12/22/24 17:53 Source: patient Mode of arrival: ambulatory Limitations: no limitations History of Present Illness ED Provider: jeremie guerrero np HPI narrative: Patient is an 79-year-old female who presents emergency department with her son for evaluation. Evidently the visiting nurse expressed some concern over the past few days that she has been having slurred speech, generalized weakness, and some tremors. This has happened in the past when she had a urinary tract infection which like patient's account was approximately 2 months ago and was treated. She does admit that over the past 2 days she has been experiencing dysuria and urinary frequency. additionally, she expresses that she has a pressure blister to the right heel that she sustained a few months ago at [facility], the area is not open or draining, but states that she has not sought evaluation for this, the visiting nurse has been placing a padded dressing and keeping pressure off of the heel. She denies any surrounding redness, pain, inability to bear weight on the foot. She denies headache, dizziness, lightheadedness, vision changes, fevers, chills, chest pain, shortness of breath, difficulty breathing, abdominal pain, nausea, vomiting, back pain, hematuria, diarrhea constipation, numbness or tingling of the extremities. Patient and son both report that she feels well enough to return home so long as she does not have any infectious process that requires treatment, but from a physical standpoint do not feel as though she requires any physical therapy and/or short-term rehab at this time Related Data Home Medications ?Medication ?Instructions ?Recorded ?Confirmed alendronate 70 mg tablet 70 mg PO QWEEK 05/03/23 08/18/24 amlodipine 2.5 mg tablet 2.5 mg PO DAILY 05/03/23 08/18/24 apixaban 2.5 mg tablet (Eliquis) 2.5 mg PO BID 05/03/23 08/18/24 furosemide 20 mg tablet 20 mg PO BID 05/03/23 08/18/24 insulin aspart U-100 100 unit/mL subcut 05/03/23 08/18/24 subcutaneous solution (Novolog U-100 Insulin aspart) levothyroxine 125 mcg tablet 125 mcg PO DAILY 05/03/23 08/18/24 lisinopril 5 mg tablet 5 mg PO DAILY 05/03/23 08/18/24 nitroglycerin 0.4 mg sublingual 0 mg sublingual 05/03/23 08/18/24 tablet sub-q insulin device, 20 unit #30 ea 05/03/23 08/18/24 (V-GO 20 device) Previous Rx's ?Medication ?Instructions ?Recorded doxycycline hyclate 100 mg tablet 100 mg PO BID #14 tabs 11/16/24 prednisone 20 mg tablet 20 mg PO BID #10 tabs 11/16/24 phenazopyridine 100 mg tablet 100 mg PO TID PRN pain 6 doses #6 12/22/24 (Pyridium) tabs Allergies Allergy/AdvReac Type Severity Reaction Status Date / Time codeine Allergy Unknown Verified 12/22/24 12:46 duloxetine Allergy Unknown Verified 12/22/24 12:46 gluten Allergy Unknown Verified 12/22/24 12:46 hydromorphone Allergy Unknown Verified 12/22/24 12:46 iodine Allergy Unknown Verified 12/22/24 12:46 morphine Allergy Unknown Verified 12/22/24 12:46 pregabalin Allergy Unknown Verified 12/22/24 12:46 shellfish derived [shellfish] Allergy Unknown Verified 12/22/24 12:46 Review of Systems 2 Review of Systems: Yes all other systems are reviewed and are negative PMFSH Past Medical History Attestation statement: The following information was validated with the patient. Source: old records reviewed Medical History HTN (hypertension) Cervical cancer Thyroid cancer Breast cancer Diabetes Surgical History History of hip surgery Status post partial removal of lung H/O: hysterectomy H/O mastectomy Social History Social History Patient Tobacco Use Status: Never used Tobacco Smoked in Last 30 Days: No Use of substances other than those prescribed or required for medical reasons: No Advance Directives: No Advance Directives Information Provided: No Do you have a plan to hurt others: No Plan Current occupational status: retired 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 Physical Exam ED Vital Signs: Vital Signs - 24 hr 12/22/24 12:42 12/22/24 18:36 Temperature 97.7 F 97.7 F Pulse Rate 74 66 Respiratory Rate 18 16 Blood Pressure 160/75 H 170/83 H Pulse Oximetry 99 97 Oxygen Delivery Method Room Air Room Air BMI result Body Mass Index 25.7 Appearance: Alert.?Oriented to person, place and time. No acute distress.?Normal affect. Eyes: Pupils equal, round and reactive to light.? ENT: Pharynx normal.?? Neck: Normal inspection.? Neck supple.?? CVS: Heart sounds normal. Normal heart rate and rhythm.? Pulses normal.?? Respiratory: No respiratory distress.? Lung sounds clear to auscultation bilaterally?? Abdomen: Soft and non-tender. Normoactive bowel sounds. Skin: Skin warm and dry.? Normal skin color.? Normal skin turgor.?? Extremities: 2+ bilateral lower extremity nonpitting edema. No calf tenderness upon palpation. Right heel with 5 cm X 3 cm blister to the calcaneal heel, skin is intact, no surrounding erythema or warmth. 2+ DP /PT pulse. Cushioned dressing applied. Neuro: Moves all extremities spontaneously. Sensation intact bilaterally. CN II- XII intact. No focal neuro deficits. Ambulates with normal steady gait. Course Course Course Narrative: This is an RME: Additional HPI, ROS, PE not included below will be deferred to primary provider. RME assessment and note performed by: Miriam Vazquez PA-C This is a 88-miom-zjk-female, with a hx of a fib on eliquis, HTN, arthritis, breast cancer, cervical cancer, thyroid cancer > not on radiation or chemotherapy, who presents to the ER with complaints of ?slurred speech, increased tremors and weakness. Reports that she had a UTI 1 month ago and her symptoms were similar. Pt with no reported slurred speech, no focal deficits on exam. No tremors appreciated on exam. No head strike. Plan: Labs, UA, CT head, further ER eval needed. Medical Decision Making Medical Decision Making MDM Narrative: Patient is an 79-year-old female with past medical history of hypertension, atrial fibrillation anticoagulated on Eliquis, arthritis, gout, breast cancer, cervical cancer, thyroid cancer presents emergency department with can discern as per HPI. Visiting nurse expressed concern of slurred speech over the past few days though on examination I do not appreciate any slurred speech, patient's son at bedside has not noticed her to have slurred speech either, she has no focal neurological deficits at the time of my evaluation. A CT of the head was obtained prior to my assumption of care and is without evidence of acute pathology, no CVA, no intracranial mass. She states that the tremors that she has experienced occur infrequently, she has not experienced any since earlier this morning. Although she initially endorsed the visiting nurse expressed concern she was weaker than usual, she feels that she is functionally at her baseline, does not feel as though she requires physical therapy and/or short- term rehab and patient's son who was residing with patient at this time does not feel that she requires this either. She does express concern for urinary tract infection, or abdominal examination is benign, she has no CVA tenderness, lower suspicion for pyelonephritis, no history of urolithiasis to suspect as such an etiology for her dysuria, will obtain urinalysis. Serum labs were obtained prior to my assumption of care, CBC reveals a mild leukopenia, mild anemia not meeting transfusion criteria, no thrombocytopenia. No electrolyte derangement. No MARTY. Minimally elevated LFTs, with benign abdominal examination unlikely to have acute hepatobiliary etiology. Patient with significant concern for the pressure blister to her right heel, on examination skin is intact, non open, no surrounding cellulitis, unlikely to have acute osseous abnormality, patient feels strongly about having XR obtained therefore ordering at this time. XR does not show evidence of acute osseous abnormality. Urinalysis is without microscopic hematuria or evidence of acute urinary tract infection. she is ambulatory with a slow steady gait and use of a walker. Family expressed concern that she is walking slightly slower than usual but she also has not eaten very much today. She has been in the waiting room since this afternoon. She was provided with something to eat here. Patient was offered to have physical therapy evaluation for determination as to whether she needs physical therapy and/or short to rehab patient however declines. At this time feel that she is stable for discharge, will send prescription for Pyridium to help with dysuria and advised outpatient follow-up primary care doctor. Strict return precautions were reviewed. All questions answered. Differential Diagnosis Differential Diagnoses: The differential diagnosis associated with the presentation includes ( See narrative above) Admission/Observation Consideration of admission/observation: Escalation of care including admission/observation considered Lab Data MDM Lab Attestation statement: I reviewed the patient's lab results. ( see narrative above) 12/22/24 13:21 12/22/24 13:21 Labs: Lab Results 12/22/24 12/22/24 Range/Units 13:21 18:04 WBC 4.7 L (4.8-10.8) X10*3/uL RBC 3.76 L (4.20-5.50) X10*6/uL Hgb 11.7 L (12.0-16.0) g/dl Hct 35.4 L (37.0-47.0) % MCV 94.1 (80.0-98.0) fL MCH 31.1 (27.0-33.0) pg MCHC 33.1 (31.0-35.0) g/dl RDW 15.9 (11.0-16.0) % Plt Count 192 D (160-400) X10*3/uL MPV 11.6 (9.4-12.3) fL Immature Gran % (Auto) 0.2 (0.0-0.4) % Neut % (Auto) 50.2 (45-73) % Lymph % (Auto) 38.5 (20-40) % Alfalfa % (Auto) 9.0 (2-11) % Eos % (Auto) 1.5 (0-4) % Baso % (Auto) 0.6 (0-2) % Lymph # (Auto) 1.8 (1.2-4.9) X10*3/uL Alfalfa # (Auto) 0.4 (0.1-1.2) X10*3/uL Eos # (Auto) 0.1 (0.0-0.4) X10*3/uL Baso # (Auto) 0.0 (0.0-0.2) X10*3/uL Abs Immat Gran (auto) 0.01 (0.00-0.03) X10*3/uL Absolute Neuts (auto) 2.3 (2.0-8.3) x10*3/uL Absolute Nucleated RBC 0.000 (0.0-0.012) X10*3/uL Nucleated RBC % (auto) 0.0 (0.0-0.2) /100WBC Sodium 137 (135-145) mmol/L Potassium 4.2 (3.3-5.1) mmol/L Chloride 104 (96-108) mmol/L Carbon Dioxide 25 (22-29) mmol/L Anion Gap 12 (12-20) BUN 36 H (9-16) mg/dL Creatinine 1.39 (0.5-1.4) mg/dL Estim Creat Clear Calc 30.0 Estimated GFR 36 Random Glucose 234 H (60-115) mg/dL Calcium 8.4 (8.4-10.2) mg/dL Magnesium 2.0 (1.6-2.6) mg/dL Total Bilirubin 0.5 (0.0-1.0) mg/dL Direct Bilirubin 0.2 (0.0-0.5) mg/dL AST 56 H (5-31) U/L ALT 65 H (0-31) U/L Alkaline Phosphatase 129 H (39-117) U/L Troponin I High Sens 3.6 (<3.5-17.0) ng/L Total Protein 6.2 L (6.5-8.0) g/dL Albumin 3.3 L (3.5-5.0) g/dL Urine Color Yellow Urine Appearance Clear Urine pH 6.0 (5.0-9.0) Ur Specific Becker 1.010 (1.005-1.025) Urine Protein 100 (2+) H (Neg-Trace) mg/dL Urine Glucose (UA) 250 H (Negative) mg/dL Urine Ketones Negative (Negative) mg/dL Urine Blood Negative (Negative) Urine Nitrite Negative (Negative) Ur Leukocyte Esterase Negative (Negative) Urine RBC 0-2 (0-2) /HPF Urine WBC 0-5 (0-5) /HPF Ur Squamous Epith Cells 0-2 (0-2) /HPF Urine Bacteria None Seen (None Seen) Hyaline Casts 0-2 (0-2) /LPF Influenza Type A (PCR) NEGATIVE (Negative) Influenza Type B (PCR) NEGATIVE (Negative) RSV RNA Qual (PCR) NEGATIVE (Negative) SARS-CoV-2 RNA (RT-PCR) NEGATIVE (Negative) Independent Interpretation I performed an independent interpretation of an: EKG (EKG reveals a sinus rhythm with PAC ventricular rate of 71, QTC 412, no ST elevation, T-wave inversion in lead III as seen on prior) Radiology Impression Discussion of test interpretation with radiology: I have reviewed the radiologist's reading. Radiologist Impression: CT/CT head/brain wo IV con IMPRESSION: 1. No acute intracranial abnormality. 2. Chronic white matter changes as discussed. 3 view right foot Comparison: None Findings: Bones intact. No dislocations. Joint space narrowing and periarticular osteophyte formation at the 1st metatarsophalangeal joint as well as the interphalangeal joints of the digits. Periarticular osteophyte formation at the tibiotalar, talonavicular, naviculocuneiform, and subtalar joints. Calcaneal spurring. Metatarsus primus varus. Hardware within the 1st and 2nd digits. No ankle effusion. No radiopaque foreign body. IMPRESSION: 1. No acute findings. Independent Historian Clinical information obtained from an independent historian. History obtained from or confirmed by: Other ( patient's son) External Record Review External record reviewed: Outpatient record Chronic Conditions Patient?s care impacted by: Other ( see narrative above) Discharge Plan Discharge Clinical Impression: Dysuria Patient Disposition: Home, Self-Care Instructions: Dysuria (ED) Additional Instructions: As discussed, workup today in the emergency department did not show any acute abnormal findings. Particularly your urine test did not show any evidence of infection. Given the burning you are experiencing with urination I have sent a prescription for Pyridium to the pharmacy to help alleviate the burning that you are experiencing, please be aware that this may turn your urine a bright orange color. Please follow-up with your primary care doctor. Return with any new or worsening symptoms or concerns Prescriptions: New phenazopyridine [Pyridium] 100 mg tablet 100 mg PO TID PRN (Reason: pain) Qty: 6 0RF No Action doxycycline hyclate 100 mg tablet 100 mg PO BID Qty: 14 0RF prednisone 20 mg tablet 20 mg PO BID Qty: 10 0RF nitroglycerin 0.4 mg tablet, sublingual 0 mg sublingual Eliquis 2.5 mg tablet 2.5 mg PO BID furosemide 20 mg tablet 20 mg PO BID lisinopril 5 mg tablet 5 mg PO DAILY levothyroxine 125 mcg tablet 125 mcg PO DAILY amlodipine 2.5 mg tablet 2.5 mg PO DAILY alendronate 70 mg tablet 70 mg PO QWEEK (DME) V-GO 20 Device See Rx Instructions .ROUTE .MEDSUPPLY Qty: 30 Rx Instructions: As directed insulin aspart U-100 [Novolog U-100 Insulin aspart] 100 unit/mL solution subcut Referrals: Cassandra Tolentino MD [Primary Care Provider] - Print Language: South African
--- NOTE | 2024-12-22 12:54 | ECG_ITS ---
Test Reason : WEAKNESS Blood Pressure : */* mmHG Vent. Rate : 71 BPM Atrial Rate : 71 BPM P-R Int : 160 ms QRS Dur : 84 ms QT Int : 380 ms P-R-T Axes : -3 -27 9 degrees QTcB Int : 412 ms Sinus rhythm with Premature atrial complexes Otherwise normal ECG When compared with ECG of 16-Nov-2024 12:16, No significant change was found Referred By: Miriam Vazquez Electronically Signed By: RACHEL FINCH
[2024-12-22 13:29] LABS: MANUAL DIFF FLAG NO
[2024-12-22 13:30] LABS: Basophils Percent Auto 0.6 % (0-2); Eosinophils Absolute Auto 0.1 X10*3/uL (0.0-0.4); Eosinophils Percent Auto 1.5 % (0-4); Hematocrit 35.4 % (37.0-47.0); Hemoglobin 11.7 g/dl (12.0-16.0); Imm Gran Abs Auto 0.01 X10*3/uL (0.00-0.03); Imm Gran Pct Auto 0.2 % (0.0-0.4); Lymphocytes Absolute Auto 1.8 X10*3/uL (1.2-4.9); Lymphocytes Percent Auto 38.5 % (20-40); Mean Corpuscular HGB Conc 33.1 g/dl (31.0-35.0); Mean Corpuscular Hemoglobin 31.1 pg (27.0-33.0); Mean Corpuscular Volume 94.1 fL (80.0-98.0); Mean Platelet Volume 11.6 fL (9.4-12.3); Monocytes Absolute Auto 0.4 X10*3/uL (0.1-1.2); Neutrophils Absolute Auto 2.3 x10*3/uL (2.0-8.3); Neutrophils Percent Auto 50.2 % (45-73); Platelet Count 192 X10*3/uL (160-400); Red Blood Count 3.76 X10*6/uL (4.20-5.50); Red Cell Distribution Width 15.9 % (11.0-16.0); White Blood Count 4.7 X10*3/uL (4.8-10.8)
[2024-12-22 13:56] LABS: Alanine Aminotransferase 65 U/L (0-31); Albumin Level 3.3 g/dL (3.5-5.0); Alkaline Phosphatase 129 U/L (39-117); Anion Gap 12 (12-20); Aspartate Amino Transferase 56 U/L (5-31); Bilirubin Direct 0.2 mg/dL (0.0-0.5); Bilirubin Total 0.5 mg/dL (0.0-1.0); Blood Urea Nitrogen 36 mg/dL (9-16); Calcium 8.4 mg/dL (8.4-10.2); Carbon Dioxide 25 mmol/L (22-29); Chloride 104 mmol/L (96-108); Estimated Glomerular Filt Rate 36; Glucose Random 234 mg/dL (60-115); Potassium 4.2 mmol/L (3.3-5.1); Sodium 137 mmol/L (135-145); Total Protein 6.2 g/dL (6.5-8.0)
[2024-12-22 13:58] LABS: Troponin-I High Sensitivity 3.6 ng/L (<3.5-17.0)
[2024-12-22 14:08] LABS: Influenza A PCR NEGATIVE (Negative); Influenza B PCR NEGATIVE (Negative); Resp Syncy Virus RNA Qual PCR NEGATIVE (Negative); SARS COV2 PCR INHOUSE NEGATIVE (Negative)
[2024-12-22 18:31] LABS: Appearance Urine Clear; Color Urine Yellow; Glucose Urine UA 250 mg/dL (Negative); Leukocyte Esterase Urine Negative (Negative); Nitrite Urine Negative (Negative); UMIC TRIGGER UACC YES; Urine Blood Negative (Negative); Urine Ketones Negative (Negative); Urine Protein 100 (2+) mg/dL (Neg-Trace)
[2024-12-22 18:36] VITALS: BP 170/83; PULSE 66; RESP 16; TEMP 36.5; O2SAT 97
[2024-12-22 18:37] LABS: Bacteria Urine None Seen (None Seen); Hyaline Casts Urine 0-2 /LPF (0-2); RBC Urine 0-2 /HPF (0-2); Squamous Epithelial Cell Urine 0-2 /HPF (0-2); WBC Urine 0-5 /HPF (0-5)
--- OUTSIDE RECORDS SUMMARY | 2024-12-22 19:15 | XMS_ITS | Patient Health Record ---
[facility] Organization [facility] Address [address] [facility] [place] [address] Care Team Providers Care Avionics Test Technician Name Role Phone Cassandra Tolentino MD Primary Care Provider Kelly Mari Unavailable [phone] Allergies Allergen (clinical drug ingredient) Drug/Non Drug [...] Problem Acquired hammer toe of right foot (0726728016264612 ) Other hammer toe(s) (acquired), right foot (M20.41) Active confirmed Problem Acquired hammer toe of left foot (8359597934935253 ) Other hammer toe(s) (acquired), left foot (M20.42) Active confirmed Problem Polyneuropathy due to type 2 diabetes mellitus (991740581) Type 2 diabetes mellitus with diabetic polyneuropathy (E11.42) Active confirmed Vital Signs Blood pressure diastolic 67 mm Hg 10/06/2024 Height 5ft 5in in 10/06/2024 Blood pressure systolic 126 mm Hg 10/06/2024 Weight 143 lbs 10/06/2024 BMI 23.79 kg/m2 10/06/2024 Procedures Procedure Date Ordered Date Performed Result Body Sit e 00745-MJVLXPP NAIL, 6 OR MORE 10/06/2024 N/A 92819-ZBFV SKIN LESIONS, OVER 4 10/06/2024 N/A Encounters Encounter Location Date Provider [facility] [address] [place] [address] 10/06/2024 Kelly Burr Other hammer toe(s) (acquired), right foot M20.41 ; Other hammer toe(s) (acquired), left foot M20.42 ; Type 2 diabetes mellitus with diabetic polyneuropathy E11.42 and Tinea unguium B35.[address] [facility] [address] 07/16/2024 Kelly Burr [facility] [address] 09/02/2024 Kelly Burr [facility] [address] 10/13/2024 Kelly Burr Assessments Encounter Date Diagnosis [...] Treatment Pending Test Test Name Order Date 49739-VFJXGGC NAIL, 6 OR MORE 10/06/2024 92389-UVIM SKIN LESIONS, OVER 4 10/06/19 Next Appt Details Provider Name:Kelly Ovalle kar, 01/22/2025 01:00:00 PM, [address] [facility] [facility], [address], [place], [address], Insurance Providers Payer Name Payer Address Payer Phone Subscriber Number Group Number Insured Name Patient Relationship to Insured Coverage Start Date Coverage End Date Medicare National Govt Svcs Inc [address] [place] [address] [id number] Tosin Gonzalez Self - patient is the [...]
--- OUTSIDE RECORDS SUMMARY | 2024-12-22 19:16 | XMS_ITS | Clinical Summary ---
Author Organization [facility] Address [address] [place] [address], [place] [address] Care Team Providers Care Dye Mixer Name Role Phone Cassandra Tolentino MD Primary Care Provider [phone] Medications amLODIPine (NORVASC) 5 MG tablet Take 5 mg by mouth 1 (one) time each day Active aspirin (ST KARY) 81 MG EC tablet Take 81 mg by mouth 1 (one) time each day Active Glucagon (Baqsimi One Pack) 3 MG/DOSE powder Administer into affected nostril(s) Active ergocalciferol 1.25 MG (31505 UT) capsule Take 50,000 Units by mouth [...] AM EST) Hemoglobin A1C 8.9(H) (4.0-5.6) % [facility] Comment: MONITORING: In known diabetic patients, hemoglobin A1c targets should be discussed with health care provider. DIAGNOSTIC USE: ??The [place] Diabetes Association (ADA) and the World Health [...] Supplement 1 Testing performed or reported by [facility], a Service of [facility], [address] [place] [address] Charli Ortiz MD, Visual Designer [facility]# [id number] Blood (Blood, Venous) 10/24/2023 10:43 AM EST 10/24/2023 11:05 AM EST us Geovanny Allen MD LAB BLOOD ORDERABLES Marielle pat Result [facility] from Last 3 Months or Most Recently Relevant to Health Maintenance Insurance [place] Care Teams Dye Mixer Relationship Specialty Start Date End Date Cassandra Tolentino MD [address], [place] PCP - General 10/03/20
--- OUTSIDE RECORDS SUMMARY | 2024-12-22 19:16 | XMS_ITS ---
Author Organization [facility] Address [address] [place] [address] Care Team Providers Care Balancing Machine Operator Name Role Phone Cassandra Tolentino MD Primary Care Provider Kelly Mari Unavailable [phone] Allergies Allergen (clinical drug ingredient) Drug/Non Drug [...] Problem Acquired hammer toe of right foot (7410163436475074 ) Other hammer toe(s) (acquired), right foot (M20.41) Active confirmed Problem Acquired hammer toe of left foot (8753809757990548 ) Other hammer toe(s) (acquired), left foot (M20.42) Active confirmed Problem Polyneuropathy due to type 2 diabetes mellitus (345681759) Type 2 diabetes mellitus with diabetic polyneuropathy (E11.42) Active confirmed Vital Signs Height 5ft 5in in 10/06/2024 Weight 143 lbs 10/06/2024 BMI 23.79 kg/m2 10/06/2024 Blood pressure systolic 126 mm Hg 10/06/19 25 Blood pressure diastolic 67 mm Hg 025 Procedures Procedure Date Ordered Date Performed Result Body Sit e 57322-EJPIHVB NAIL, 6 OR MORE 10/06/2024 N/A 25040-HPTK SKIN LESIONS, OVER 4 10/06/2024 N/A Encounters Encounter Location Date Provider Diagnosis [facility] [address] [address] 10/06/2024 Kelly Burr Other hammer toe(s) (acquired), [...] INSTRUCTIONS.pdf) Pending Test Test Name Order Date 37892-LBGQRQA NAIL, 6 OR MORE 10/06/2024 98989-CORC SKIN LESIONS, OVER 4 10/06/19 25 Next Appt Details Follow Up: 3 Months, Reason: Provider Name:Kelly lakhani, 01/22/2025 01:00:00 PM, [address], [place], [address], Procedure Notes * Category Sub-Category Detail Notes [...] use of a nail nipper and/or dremel-type sample grinder, to a more viable healthy nail plate [...] to maintain effectiveness in symptomatic relief - 06723 Keratoma Treatment Parring or Cutting o f [...] instrumentation by the physician of record - 03430 Progress Notes * Nicolás GONZALEZOB:1945 (78 yo F)Acc No.[id number]:10/06/2024 Progress Notes Patient:?Tosin GONZALEZ Provider:?Kelly Burr DPM :1945???Age:78 Y???Sex:Female D ate:10/06/2024 Address: [address] [facility], [facility] Pcp:Cassandra Tolentino MD Subjective: * Chief Complaints: [...] 10.0 * Examination: ???Ophthalmology Referral: ?DIABETES EYE EXAM?Procedure Performed:?No?Orthopedic: ?MUSCLE STRENGTH:?5/5 all groups in a symmetrical [...] for office visit today.?ORIENTED:?person, place, and time.?FOOT EXAM:?Lower Extremity Neurological Exam performed:?Yes Date 10/06/24 ?Visual exam of foot performed:?Yes ?Date?10/06/2024 ?Sensory testing performed:?sensations diminished ?Sensory and motor testing performed:?strength normal ?Pedal pulse taking performed:?absent ?Footwear Evaluation?Footwear Evaluation performed:?Yes?Neurological: ?SENSORY:? Neurological exam demonstrates, reduced light touch [...] 2.?Type 2 diabetes mellitus with diabetic polyneuropathy?Procedure: 99312-LTSRZJF NAIL, 6 OR MORE ?Procedure: 19722-FQWV SKIN LESIONS, OVER 4 * Procedures:?Debride Nail [...] use of a nail nipper and/or dremel-type sample grinder, to a more viable healthy nail plate [...] to maintain effectiveness in symptomatic relief - 77782.?Keratoma Treatment:?Parring or Cutting of Benign Hyperkeratotic Lesion(s)?(-57) [...] instrumentation by the physician of record - 71378.? * Procedure Codes:?71622 DEBRI DE NAIL, 6 OR MORE, Modifiers: XS 01480 TRIM SKIN LESIONS, OVER 4, Modifiers: XS [...] Burr DPM Date:?0 10/06/2024 Generated for Obdulio ratliff/Garrett/eTransmitting on:?12/22/2024 07:15 PM EDT History and Physical Notes * HPI (History [...] b/l, sub 3rd metatarsal head, RIGHT Orthopedic FOOTWEAR EVALUATION: worn, non-s upportive, shoe gear properties exacerbate patient's foot/toe deformity [...] d iminished Sensory and motor testing performed:: [facility] normal Pedal pulse taking performed:: absent [...]
--- OUTSIDE RECORDS SUMMARY | 2024-12-22 19:16 | XMS_ITS ---
Author Organization [facility] Address [address] [place] [address] Care Team Providers Care Building Construction Professor Name Role Phone Randa MOTA, Cassandra Primary Care Provider Kelly Mari [phone] REASON FOR VISIT COIN BOX COLLECTOR PPWK Entered Encounters Encounter Location Date Provider Diagnosis [facility] [address] [place] [address] 09/02/2024 Kelly Burr Plan Of Treatment Next Appt Details Provider Name:Kelly lakhani, 01/22/2025 01:00:00 PM, [address] [facility], [place] [address], [place], [address], Progress Notes * Nicolás GONZALEZOB:1945 (78 yo F)Acc No.[id number]:09/02/2024 Patient:?Tosin GONZALEZ :1945???Age:78 Y???Sex:Female Address:[address] [place] [address] * true * Date:? Generated for Printi ng/Faxing/eTransmitting on:?12/22/2024 07:15 PM EDT
--- OUTSIDE RECORDS SUMMARY | 2024-12-22 19:16 | XMS_ITS | Clinical Summary ---
Author Organization [facility] Address [address] [place] [address] Care Team Providers Care Paint Brush Maker Name Role Phone Cassandra Tolentino MD Primary Care Provider [phone] Social History Tobacco Use Types Packs/Day Years [...] age to complete this topic Care Teams Paint Brush Maker Relationship Specialty Start Date End Date Cassandra Tolentino MD [address] [place] [address] PCP - General Internal Medicine 07/03/18
--- OUTSIDE RECORDS SUMMARY | 2024-12-22 19:16 | XMS_ITS | Data Portability ---
Author Organization [place] - [facility], Main Office Address [address] [place] [address] Care Team Providers Care Engineering Technician Name Role Phone ALANA SANCHEZ Referring Provider Assessment No assessment recorded. Plan of Treatment Reminders Order Date Submit Date Provider Last Modified By Organization Details Last Modified Time Details Appointments None recorded. Lab None recorded. Referral hand surgeon referral 2019 020 [email or web address] Alaniz MD ([facility]), [address], [place], [address], 0 11:53:41 Procedures None recorded. Surgeries None recorded. Imaging US, duplex, venous, lower extremity 2019 020 [facility], [address] [place] [address] Dr Cochran, [place] [address], [place], [address], 0 16:07:00 Medication Orders tramadol 50 mg tablet 2019 020 [id number], [address], [place], [address], 0 11:39:14 Bactrim DS 800 mg-160 mg tablet 2019 020 [id number], [address] [place], [address], 0 11:43:06 duloxetine 30 mg capsule,de layed release 2019 020 [id number], [address] [place], [address], 0 11:15:22 Patient TargetsNo targets recorded. Patient Instructions Encounter Date Encounter Id Patient Instructions Last Modified By Organization Details Last Modified Time 04/13/2020 [id number] learning about swallowing problems Not available 04/13/2020 11:15:18 osteoporosis: ca re instructions Not available 04/13/2020 11:15:18 transient ischem ic attack: care instructions Not available 04/13/2020 11:15:18 Urinary Tract Infection (UTI) in Women: Care Instructions Not available 04/13/2020 11:15:19 high blood pressure: care instructions Not available 04/13/2020 11:15:18 learning about high blood pressure Not available 04/13/2020 11:15:18 learning about mood disorders Not available 04/13/2020 11:15:18 sp diet and wt loss poor dm ,lantus 25 u ,plus ssi,hba1c 9.9% add duloxetine 30 po qd Not available 04/13/2020 11:12:40 05/05/2020 [id number] The medical decision making and treatment plan, as documented above, have been made in collaboration with Dr. Carney. They are part of the normal course of treatment for the patient. Dr. Carney is actively involved as has provided direct supervision while remaining available on site to render service, if necessary. [email or web address] Not available 05/05/2020 10:21:00 05/25/2020 [id number] learning about swallowing problems Not available 06/14/2020 08:52:45 high blood pressure: care instructions Not available 06/14/2020 08:52:45 learning about high blood pressure Not available 06/14/2020 08:52:45 sp vomiiting sp dm gastroparesis bm hygeine hba1c follow up ok for dm shoes Not available 05/25/2020 11:43:03 sp eye inj cente r for sight Not available 05/25/2020 11:45:59 07/27/2020 [id number] learning about swallowing problems Not available 07/27/2020 11:42:37 osteoporosis: ca re instructions Not available 07/27/2020 11:42:37 high blood pressure: care instructions Not available 07/27/2020 11:42:37 learning about high blood pressure Not available 07/27/2020 11:42:37 learning about mood disorders Not available 07/27/2020 11:39:12 labs dwpt ,inc d m with ckd 3 gfr 35 sp dpn,with arthralias off duloxetin ,sp bad thoughts trigger fingers ,ref hand surgeon Not available 07/27/2020 11:40:24 inc hba1c 10.9% dex 6 ,talk to endo Not available 07/27/2020 11:38:28 08/09/2020 [id number] Clostridioides Difficile (C. diff) Colitis: Care Instructions Not available 08/09/2020 15:03:46 high blood pressure: care instructions Not available 08/09/2020 15:03:46 learning about high blood pressure Not available 08/09/2020 15:03:46 c diff folo w up labs fu add probiotics Not available 08/09/2020 15:03:03 Reason for Referral Hand Surgeon Referral for Tr igger finger trgger fingers bl Referring Physician: Kavon Carney, Internal Medicine, Encounter Date: 07/27/2020 Results Created Date Observation Date Name Description Value Unit Range Abnormal Flag Note LastModifiedBy Organization Detail LastModifiedTime 05/05/20 20 05/05/2020 US, rebekah x, celina s, [facility] mity No observ ation record ed. [email or web address] [facility] [address], [place], [address], 05/09/2020 09:51:57 Result Notes None recorded. 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 Not Available [facility] 0 13:06:26 Diabetic foot ulcer 018726816 Active 2018 Not Available [facility] 0 13:06:26 Chronic kidney disease due to type 2 diabetes mellitus 649525051658 Active 2018 Not Available [facility] 0 13:06:25 Tenosynovi tis 98105261 Active 2019 Not Available [facility] 0 13:06:26 Depressive disorder 60713074 Active 2019 Not Available [facility] 0 13:06:26 Urinary tract infectious disease 07966811 Active 2019 Not Available [facility] 0 13:06:26 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 030832258 Active 2019 Kavon Carney MD [address] [place], [address] , [facility] 0 11:45:12 Trigger finger Active 2019 Kavon Carney MD [address] [place], [address] , [facility] 0 11:41:40 Dysphagia 82020714 Active 2016 Not Available [facility] 0 13:06:26 Imaging of lung abnormal 876091970 Active 2016 Not Available [facility] 0 13:06:26 Atypical mycobacter ial infection 836529758 Active 2016 Not Available [facility] 0 13:06:26 Essential hypertensi on 12961394 Active 2016 Not Available [facility] 0 13:06:26 Osteoporos is 11983535 Active 2016 Not Available [facility] 0 13:06:26 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 2 diabetes mellitus 4914797320403 Active 2016 Not Available [facility] 0 13:06:26 Malignant tumor of breast 584799020 Active 2016 Not Available [facility] 0 13:06:26 Transient cerebral ischemia 201623564 Active 2016 Not Available [facility] 0 13:06:26 Problem Notes None recorded. Procedures Surgical History Date Name Laterality Status Provider Name and Address Organization Details Recorded Time Total Hysterectomy completed REYMUNDO Mitchell [facility] 10/05/2016 15:03:20 Imaging Results Imaging Date Name Status LastModified by Organiz ation Details LastModified Time 05/05/2020 US, duplex, venous, lower extremity completed [email or web address] [facility] [address], [place], [address], 05/09/2020 09:51:57 Procedure Notes None recorded. Medical Equipment None Reported. Allergies Allergen ID Allergen Name Allergen Category Reaction Reaction Severity Criticality Documentation Date Start Date Code Code System Note Provider Name and Address Organization Details Recorded Time 110 codeine medicatio n nausea Not available Not available 10/05/2016 2670 RxNorm Cidna Banuelos APRN [facility] 7 14:54:02 Medications Name Sig Start Date Stop Date Status Note LastModified by Organization Details LastModified Time Prescript ion - New 12/20 completed Not Available Not Available Not Available Prescript ion - Change active Not Available Not Available Not Available Prescript ion - Prior Authoriza tion Request 12/20 completed Not Available Not Available Not Available furosemid e 40 mg tablet TAKE 1 TABLET BY MOUTH TWICE A DAY active Not Available Not Available No t Available Augmentin 875 mg-125 mg tablet Take 1 tablet every 12 hours by oral route for 7 days. 12/07 completed Not Available Not Available Not Available ivermecti n 3 mg tablet TK 6 TABLETS PO NOW THEN REPEAT IN 7 DAYS THEN REPEAT CYCLE AGAIN active Not Available Not Available No t Available gabapenti n 600 mg tablet 1 BID active Not Available Not Available Not Available doxycycli ne hyclate 100 mg capsule 02/06 completed Not Available Not Available Not Available cefuroxim e axetil 250 mg tablet active Not Available Not Available Not Available azithromy homar 250 mg tablet TAKE 2 TABLETS BY MOUTH TODAY, THEN TAKE 1 TABLET DAILY FOR 4 DAYS 04/13 completed Not Available Not Available Not Available ibuprofen 800 mg tablet TAKE 1 TABLET BY MOUTH EVERY 6 TO 9 HOURS NEEDED FOR PAIN active Not Available Not Available No t Available lisinopri l 20 mg tablet 1 QQD active Not Available Not Available Not Available Lantus U-100 Insulin 100 unit/mL subcutane ous solution 30 units qd 2019 active testing QID Not Available Not Available Not Available amlodipin e 5 mg tablet TAKE 1 TABLET BY MOUTH EVERY DAY active Not Available Not Available No t Available prochlorp erazine maleate 10 mg tablet 02/06 completed Not Available Not Available Not Available ciproflox acin 500 mg tablet TAKE 1 TABLET BY MOUTH TWICE A DAY 05/05 completed Not Available Not Available Not Available sulfameth oxazole 800 mg-trimet hoprim 160 mg tablet TAKE 1 TABLET BY MOUTH EVERY 12 HOURS 05/25 completed Not Available Not Available Not Available omeprazol e 40 mg capsule,d elayed release TAKE 1 CAPSULE BY MOUTH EVERY DAY active Not Available Not Available No t Available doxycycli ne monohydra te 100 mg tablet TAKE 1 TABLET BY MOUTH TWICE A DAY 04/13 completed Not Available Not Available Not Available tramadol 50 mg tablet TAKE 1 TABLET BY MOUTH EVERY 8 HOURS NEEDED active Not Available Not Available No t Available oxycodone -acetamin ophen 5 mg-325 mg tablet 02/06 completed Not Available Not Available Not Available Tessalon Perles 100 mg capsule Take 1 capsule 3 times a day by oral route for 7 days. 12/07 completed Not Available Not Available Not Available hydromorp inez 2 mg tablet 02/06 completed Not Available Not Available Not Available Silvadene 1 % topical cream APPLY A 1/16 INCH (1.5 MM) THICK LAYER TO ENTIRE BURN AREA BY TOPICALR OUTE 2 TIMES PER DAY 2017 active Not Available Not Available Not Avai lable Flagyl 500 mg tablet Take 1 tablet 3 times a day by oral route for 10 days. 02/06 completed Not Available Not Available Not Available dexametha sone 2 mg tablet active Not Available Not Available Not Available cephalexi n 500 mg capsule TAKE 1 CAPSULE BY MOUTH TWICE A DAY active Not Available Not Available No t Available metformin 1,000 mg tablet TAKE 1 TABLET BY MOUTH TWICE A DAY 06/24 completed Not Available Not Available Not Available levothyro xine 125 mcg tablet Take 1 tablet every day by oral route. 2019 active Not Available Not Available Not Avai lable triamcino lone acetonide 0.1 % topical ointment APPLY A SMALL AMOUNT THINLY TO AFFECTED AREA ON A DAILY BASIS active Not Available Not Available No t Available Neurontin 100 mg capsule Take 1 capsule twice a day by oral route. active Not Available Not Available No t Available nitroglyc angel 0.4 mg sublingua l tablet PLACE 1 TABLET UNDER TONGUE 3 TIMES A DAY NEEDED active Not Available Not Available No t Available omeprazol e 20 mg capsule,d elayed release TAKE 2 CAPSULES BY MOUTH EVERY DAY active Not Available Not Available No t Available Novolog U-100 Insulin aspart 100 unit/mL subcutane ous solution Inject 4 sliding scale doses 4 times a day by subcutan eous route. 2019 active Not Available Not Available Not Avai lable levofloxa homar 500 mg tablet 12/07 completed Not Available Not Available Not Available Ventolin HFA 90 mcg/actua tion aerosol inhaler active Not Available Not Available Not Available Novolog FlexPen U-100 Insulin aspart 100 unit/mL (3 mL) subcutane ous Inject 12 units 3 times a day by subcutan eous route. 2017 active Not Available Not Available Not Avai lable Klor-Con M20 mEq tablet,ex tended release 1 QD active Not Available Not Available Not Available metoprolo l tartrate 25 mg tablet 1 QD 02/06 completed Not Available Not Available Not Available duloxetin e 30 mg capsule,d elayed release TAKE 1 CAPSULE BY MOUTH EVERY DAY 2019 active Not Available Not Available Not Avai lable pregabali n 50 mg capsule TAKE 1 CAPSULE BY MOUTH EVERY DAY active Not Available Not Available No t Available One Touch Ultra Test Strips testing QID active Not Available Not Available No t Available diclofena c 1 % topical gel active Not Available Not Available Not Available BD Insulin Syringe Ultra-Fin e 0.5 mL 31 gauge x 02/05 USE DIRECTED . 11.9 active Not Available Not Available No t Available Linzess 72 mcg capsule Take 1 capsule every day by oral route. 2017 active Not Available Not Available Not Avai lable OneTouch Ultra Blue Test Strip USE 1 STRIP 3 TIMES A DAY E11.9 active Not Available Not Available No t Available Dexcom G6 Transmitt er device active Not Available Not Available No t Available Fluzone High-Dose (PF) 180 mcg/0.5 mL intramusc ular syringe TO BE ADMINIST ERED BY PHARMACI ST FOR IMMUNIZA TION active Not Available Not Available No t Available Fluzone High-Dose Quad (PF) 240 mcg/0.7 mL IM syringe TO BE ADMINIST ERED BY PHARMACI ST FOR IMMUNIZA TION active Not Available Not Available No t Available Vitals Date Recorded Body height Body mass index (BMI) Body weight Heart rate Oxygen saturation Oxygen saturation in Arterial blood by Pulse oximetry Body temperature Systolic blood pressure Diastolic blood pressure Provider Name and Address Organization Details Last Updated DateTime 0 165.1 cm 27.6 kg/m2 30900.3 3 g 76 /min 99 % 99 % 97.7 [degF] 130 mm[Hg] 80 mm[Hg] [facility] 0 10:39:13 Date Recorded Body height Body mass index (BMI) Body weight Body temperature Oxygen saturation Oxygen saturation in Arterial blood by Pulse oximetry Heart rate Systolic blood pressure Diastolic blood pressure Provider Name and Address Organization Details Last Updated DateTime 0 165.1 cm 27.8 kg/m2 38406.9 3 g 97.1 [degF] 98 % 98 % 70 /min 145 mm[Hg] 85 mm[Hg] Jennifer Sherman [facility] 0 09:52:53 Date Recorded Body height Body mass index (BMI) Body weight Oxygen saturation Oxygen saturation in Arterial blood by Pulse oximetry Heart rate Body temperature Systolic blood pressure Diastolic blood pressure Provider Name and Address Organization Details Last Updated DateTime 0 165.1 cm 27.8 kg/m2 25490.9 3 g 97 % 97 % 79 /min 97.9 [degF] 118 mm[Hg] 70 mm[Hg] cristopher [facility] 0 11:13:42 Date Recorded Body height Body mass index (BMI) Body weight Body temperature Oxygen saturation Oxygen saturation in Arterial blood by Pulse oximetry Heart rate Systolic blood pressure Diastolic blood pressure Provider Name and Address Organization Details Last Updated DateTime 0 165.1 cm 27.8 kg/m2 01787.9 3 g 97.3 [degF] 98 % 98 % 77 /min 122 mm[Hg] 70 mm[Hg] Jennifer Sherman [facility] 0 11:15:58 Date Recorded Body height Body mass index (BMI) Body weight Body temperature Heart rate Oxygen saturation Oxygen saturation in Arterial blood by Pulse oximetry Systolic blood pressure Diastolic blood pressure Provider Name and Address Organization Details Last Updated DateTime 0 165.1 cm 27.8 kg/m2 73647.9 3 g 97.5 [degF] 69 /min 96 % 96 % 100 mm[Hg] 70 mm[Hg] cristopher bobby [facility] 0 14:40:33 Social History Question Answer Notes LastModified by Post.Bid.Ship ion Details LastModified Time Tobacco Smoking Status Former Smoker Not Available [facility] 07/26/2020 03:17:05 Do You Have An Advance Directive? Yes [id number] Information not available 07/26/2020 What Is Your Level Of Alcohol Consumption? None [id number] Information not available 07/26/2020 What Is Your Level Of Caffeine Consumption? None [id number] Information not available 07/26/2020 Which Illicit Or Recreational Drugs Have You Used? No [id number] Information not available 07/26/2020 Do You Reside In Or Have You Traveled To An Area Where Ebola Virus Transmission Is Active? No [id number] Information not available 07/26/2020 Education 2 Year College Information not available 10/05/2016 What Is Your Occupation? Retired [id number] Information not available 07/26/2020 Marital Status Informatio n not available 10/05/2016 Seat Belts Used Routinely Yes Information not available 10/05/2016 How Many Years Have You Smoked Tobacco? 40 [id number] Information not available 07/26/2020 Sex: Unknown Functional Status None recorded. Mental Status None recorded. Family History Relationship Description Onset Age of this Age Resolved Age Notes LastModified by Organization Details LastModified Time Mother Goiter abriles Not available 15:01:27 Maternal Aunt Goiter abriles Not avail able 10/05/2016 15:01:27 Father Cerebrovascu lar accident abriles Not available 15:01:50 Maternal Grandmother Cerebrovascu lar accident abriles Not available 15:01:50 Medical History Condition Response Anxiety/Depression N Gout N Thyroid Disease Y Blood Transfusion N GI Problems N Incontinence N Skin Problems N Anemia N DVT/Blood clots N Meniere's disease N Diabetes N Hearing Problems N Obesity N Any type of Cancer N Seizures/Epilepsy N Polyps N Mental Disorder N Tuberculosis N AIDS/HIV N Stroke N Diverticulitis N Asthma N Vision Problems N Lupus N COPD/Emphysema N Bladder or Kidney Problems N Reflux/GERD N High Cholesterol N Hepatitis N Liver Disease N Heart Disease N Pulmonary Embolism N Fibromyalgia N Headaches N Hypertension N ADHD/PTSD N Chicken Pox N Osteoporosis N Gynecological HistoryNo gynecological history recorded. Obstetrics History GPAL:G 0 P 0 0 0 0 Immunizations Vaccine Type Date Status Note Provider Nam e and Address Organization Details Recorded Time Influenza, split virus, quadrivalent, preservative 7 completed Cinda Banuelos APRN [facility] 10/05/2016 14:59:59 Pneumococcal conjugate PCV 13 7 completed Cinda Banuelos APRN [facility] 10/05/2016 15:00:23 Past Encounters Encounter ID Performer Location Encounter Start Date Encounter Closed Date Diagnosis/Indication Diagnosis SNOMED-CT Code Diagnosis ICD10 Code Diagnosis Note [id number] Cinda Banuelos APRN Main Office [address] [place] [address] 10/05/2016 14:36:53 10/05/2016 16:39:34 Acute maxillary sinusitis 06910666 J01.00 Cough 72556414 R05 [id number] Kavon Carney MD Main Office [address] [place] [address] 11/06/2016 13:17:42 11/09/2016 15:23:28 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 2 diabetes mellitus 1448564260 107 E11.42 Malignant tumor of breast 004906784 C50.919 sp rx,sp pet Transient cerebral ischemia 849404315 G45.9 supp care Essential hypertension 41516492 I10 bp log Osteoporosis 28211811 M8 1.0 dexa Dysphagia 05706255 R13.1 0 ba swallow ,small hiatal hernia Atypical mycobacterial infection 643206112 A31.9 sp lung bx,pt,and parking permit Imaging of lung abnormal 944024956 R91.8 sp pet re removal of r lobectomy 6 Kavon Carney MD Main Office [address] [place] [address] 12/07/2016 10:59:54 12/07/2016 12:05:57 Diabetes mellitus 28576726 E11.40 [id number] Kavon Carney MD Main Office [address] [place] [address] 01/04/2017 13:14:06 01/10/2017 23:47:31 Atypical mycobacterial infection 145116078 A31.9 sp lung bx,pt,and parking permit Imaging of lung abnormal 393577002 R91.8 sp pet re removal of r lobectomy Dysphagia 56187269 R13.1 0 ba swallow ,small hiatal hernia.sp eso dilation dr sorensen 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 2 diabetes mellitus 4496576280 107 E11.42 dn stable Malignant tumor of breast 584969120 C50.919 sp rx,sp pet Transient cerebral ischemia 435229610 G45.9 supp care Essential hypertension 51200910 I10 bp log,dec lisinopril 20 po qd [id number] Kavon Carney MD Main Office [address] [place] [address] 11/06/2017 14:30:13 11/06/2017 15:59:41 Malignant tumor of breast 550665030 C50.919 sp rx,sp pet 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 2 diabetes mellitus 8193019855 107 E11.42 dn stable Diarrheal disorder 92683 3008 R19.7 add wellchol,l abs analysis [id number] Kavon Carney MD Main Office [address] [place] [address] 11/12/2017 14:08:11 11/12/2017 15:23:24 Diarrheal disorder 907159879 R19.7 add wellchol,l abs analysis,g luten free diet Malignant tumor of breast 633240763 C50.919 sp rx,sp pet 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 2 diabetes mellitus 6336666561 107 E11.42 dn stable,bli ster .dsg silvadene Transient cerebral ischemia 835864918 G45.9 supp care Essential hypertension 82913114 I10 bp log,dec lisinopril 20 po qd Osteoporosis 62165277 M8 1.0 dexa [id number] Kavon Carney MD Main Office [address] [place] [address] 11/19/2017 14:40:00 11/19/2017 22:44:38 Diarrheal disorder 153237595 R19.7 add wellchol,l abs analysis,g luten free diet Atypical mycobacterial infection 584178497 A31.9 sp lung bx,pt,and parking permit Imaging of lung abnormal 889299075 R91.8 sp pet re removal of r lobectomy Dysphagia 26361936 R13.1 0 ba swallow ,small hiatal hernia.sp eso dilation dr sorensen 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 2 diabetes mellitus 5486613097 107 E11.42 dn stable,bli ster .dsg silvadene Malignant tumor of breast 662259363 C50.919 sp rx,sp pet Clostridio ides difficile infection 198083477 A04.72 add flagyl 500 po tid x 14 days [id number] Kavon Carney MD Main Office [address] [place] [address] 12/12/2017 11:09:15 12/12/2017 12:05:00 Diarrheal disorder 364993802 R19.7 add wellchol,l abs analysis,g luten free diet Dysphagia 45383662 R13.1 0 ba swallow ,small hiatal hernia.sp eso dilation dr sorensen 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 2 diabetes mellitus 0065619915 107 E11.42 dn stable,bli ster .dsg silvadene Transient cerebral ischemia 940905172 G45.9 supp care Essential hypertension 51503562 I10 bp log,dec lisinopril 20 po qd [id number] Kavon Carney MD Main Office [address] [place] [address] 02/06/2018 10:42:29 02/06/2018 11:44:53 Essential hypertension 47130980 I10 bp log,dec lisinopril 20 po qd Renewal of prescription 880237618 Z76.0 non compliant , 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 2 diabetes mellitus 9644942182 107 E11.42 dn stable,bli ster .dsg silvadene, sp med honey doing better Malignant tumor of breast 250855116 C50.919 sp rx,sp pet Transient cerebral ischemia 159914846 G45.9 supp care [id number] Kavon Carney MD Main Office [address] [place] [place] [address] 02/28/2018 08:46:20 02/28/2018 13:42:00 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 2 diabetes mellitus 7059357837 107 E11.42 dn stable,bli ster .dsg silvadene, sp med honey doing better,inc lantus 30 u Transient cerebral ischemia 306530419 G45.9 supp care Essential hypertension 99530793 I10 bp log,dec lisinopril 20 po qd [id number] Kavon Carney MD Main Office [address] [place] [address] 03/07/2018 09:08:24 03/07/2018 10:16:11 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 2 diabetes mellitus 5143900293 107 E11.42 dn stable,bli ster .dsg silvadene, sp med honey doing better,inc lantus 30 u Transient cerebral ischemia 004195384 G45.9 supp care Essential hypertension 90800559 I10 bp log,dec lisinopril 20 po qd Irritable bowel syndrome characterized by constipation 547918254 K58.1 add linzess 72,se explained ,[place] nxt [id number] Kavon Carney MD Main Office [address] [place] [address] 06/24/2019 16:06:54 07/01/2019 21:21:43 Essential hypertension 26824588 I10 bp log,dec lisinopril 20 po qd Irritable bowel syndrome characterized by constipation 117050557 K58.1 add linzess 72,se explained ,ct abdo nxt Diarrheal disorder 94840 3008 R19.7 add wellchol,l abs analysis,g luten free diet Atypical mycobacterial infection 996437213 A31.9 sp lung bx,pt,and parking permit Imaging of lung abnormal 265919250 R91.8 sp pet re removal of r lobectomy 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 2 diabetes mellitus 6315170509 107 E11.42 dn stable,bli ster .dsg silvadene, sp med honey doing better,inc lantus 30 u Malignant tumor of breast 472902207 C50.919 sp rx,sp pet Transient cerebral ischemia 144194284 G45.9 supp care Osteoporosis 39475547 M8 1.0 dexa 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 sp mssa x 3months Diabetic foot ulcer 3710 03238 E13.621 r foot ulcer healing,no jacuzzi 88027 Kavon Carney MD Main Office [address] [place] [address] 07/08/2019 15:45:44 07/08/2019 17:28:48 Diabetic foot ulcer 940389060 E13.621 r foot ulcer healing,no jacuzzi.sp dr sanchez ,sp antibiotic s ,sp doxy 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 2 diabetes mellitus 0874219939 107 E11.42 dn stable,bli ster .dsg silvadene, sp med honey doing better,inc lantus 30 u Essential hypertension 75160794 I10 bp log,dec lisinopril 20 po qd Osteoporosis 64209085 M8 1.0 dexa 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 2893214931 08 E11.22 sp itchy areas ,sp dm control 79828 Kavon Carney MD Main Office [address] [place] [address] 07/31/2019 10:14:30 07/31/2019 11:19:31 Diabetic foot ulcer 054341575 E13.621 r foot ulcer healing,no jacuzzi.anna sanchez ,sp antibiotic s ,sp doxy 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 6702061345 08 E11.22 sp itchy areas ,sp dm control 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 2 diabetes mellitus 0412365811 107 E11.42 dn stable,bli ster .dsg silvadene, sp med honey doing better,inc lantus 30 u [address] Kavon Carney MD Main Office [address] [place] [address] 08/17/2019 11:06:07 08/20/2019 17:03:48 Chronic kidney disease due to type 2 diabetes mellitus 9734203938 08 E11.22 sp itchy areas ,sp dm control Diabetic foot ulcer 3710 81539 E13.621 r foot ulcer healing,no jacuzzi.sp dr sanchez ,sp antibiotic s ,sp doxy Dysphagia 01990291 R13.1 0 ba swallow ,small hiatal hernia.sp eso dilation dr sorensen Essential hypertension 91952144 I10 bp log,dec lisinopril 20 po qd Irritable bowel syndrome characterized by constipation 431614975 K58.1 add linzess 72,se explained ,ct abdo nxt Osteoporosis 01531414 M8 1.0 dexa 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 2 diabetes mellitus 5182307653 107 E11.42 dn stable,bli ster .dsg silvadene, sp med honey doing better,inc lantus 30 u 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 sp mssa x 3months 57012 Kavon Carney MD Main Office [address] [place] [address] 09/30/2019 14:02:45 10/01/2019 22:08:55 Chronic kidney disease due to type 2 diabetes mellitus 8428329432 08 E11.22 sp itchy areas ,sp dm control Diabetic foot ulcer 3710 90779 E13.621 r foot ulcer healing,no jacuzzi.sp dr sanchez ,sp antibiotic s ,sp doxy Dysphagia 14273537 R13.1 0 ba swallow ,small hiatal hernia.sp eso dilation dr sorensen Essential hypertension 33203914 I10 bp log,dec lisinopril 20 po qd Irritable bowel syndrome characterized by constipation 662904079 K58.1 add linzess 72,se explained ,ct abdo nxt Malignant tumor of breast 020727321 C50.919 sp rx,sp pet Osteoporosis 10867607 M8 1.0 dexa 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 2 diabetes mellitus 2042804156 107 E11.42 dn stable,bli ster .dsg silvadene, sp med honey doing better,inc lantus 30 u Tenosynovitis 48742875 M 65.9 left 1st digit,sp trauma Transient cerebral ischemia 184167371 G45.9 supp care Renewal of prescription 219811039 Z76.0 non compliant , 64467 Kavon Carney MD Main Office [address] [facility] [email or web address] [address] 11/03/2019 14:02:25 11/03/2019 15:10:47 Atypical mycobacterial infection 388452702 A31.9 sp lung bx,pt,and parking permit 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 9554666733 08 E11.22 sp itchy areas ,sp dm control Diabetic foot ulcer 3710 25793 E13.621 r foot ulcer healing,no jacuzzi.sp dr sanchez ,sp antibiotic s ,sp doxy Essential hypertension 51085253 I10 bp log,dec lisinopril 20 po qd Irritable bowel syndrome characterized by constipation 393345484 K58.1 add linzess 72,se explained ,ct abdo nxt 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 2 diabetes mellitus 9551609080 107 E11.42 dn stable,bli ster .dsg anna glaser med honey doing better,inc lantus 30 u Renewal of prescription 080089087 Z76.0 non compliant , 52683 Kavon Carney MD Main Office [address] [place] [address] 12/21/2019 13:40:40 12/21/2019 17:05:37 Low back pain 447594004 M54.5 x 3 days, lumbar strain s/p mopping floor, ok for tramadol x 3 days, rest, add ice or heat, instructed if no improvemen t or worsening to call to office 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 2 diabetes mellitus 6375906416 107 E11.42 pt reports high sugars recently s/p foot surgery, monitor daily, continue current med regimen 06027 Kavon Carney MD [facility] [facility] [address] [place] [address] 01/11/2020 11:37:42 01/11/2020 13:41:33 Chronic kidney disease due to type 2 diabetes mellitus 5258414106 08 E11.22 sp itchy areas ,sp dm control Diabetic foot ulcer 3710 36101 E13.621 r foot ulcer healing,no jacuzzi.sp dr sanchez ,sp antibiotic s ,sp doxy 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 2 diabetes mellitus 8433648288 107 E11.42 dn stable,bli ster .dsg zachariahdene, sp med honey doing better,inc lantus 30 u Atypical mycobacterial infection 742973570 A31.9 sp lung bx,pt,and parking permit 21589 Kavon Carney MD Main Office [address] [facility] [place] [address] 02/29/2020 10:36:00 02/29/2020 11:17:12 Tenosynovitis 66390602 M65.9 left 1st digit,sp trauma Atypical mycobacterial infection 868325032 A31.9 sp lung bx,pt,and parking permit 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 2795853610 08 E11.22 sp itchy areas ,sp dm control Diabetic foot ulcer 3710 46663 E13.621 r foot ulcer healing,no jacuzzi.sp dr sanchez ,sp antibiotic s ,sp doxy Diarrheal disorder 95741 3008 R19.7 add wellchol,l abs analysis,g luten free diet Dysphagia 48675151 R13.1 0 ba swallow ,small hiatal hernia.sp eso dilation dr sorensen Essential hypertension 89426551 I10 bp log,dec lisinopril 20 po qd Irritable bowel syndrome characterized by constipation 288148450 K58.1 add linzess 72,se explained ,ct abdo nxt Malignant tumor of breast 923596256 C50.919 sp rx,sp pet Osteoporosis 22606155 M8 1.0 dexa 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 2 diabetes mellitus 3258717232 107 E11.42 dn stable,bli ster .dsg silvadene, sp med honey doing better,inc lantus 30 u 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 sp mssa x 3months Transient cerebral ischemia 588335883 G45.9 supp care 01324 Kavon Carney MD Main Office [address] [place] [address] 04/13/2020 10:31:59 04/13/2020 11:31:02 Essential hypertension 29781086 I10 bp log,dec lisinopril 20 po qd Atypical mycobacterial infection 121413545 A31.9 sp lung bx,pt,and parking permit 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 3064276285 08 E11.22 sp itchy areas ,sp dm control Diabetic foot ulcer 3710 38119 E13.621 r foot ulcer healing,no jacuzzi.sp dr sanchez ,sp antibiotic s ,sp doxy Dysphagia 76859873 R13.1 0 ba swallow ,small hiatal hernia.sp eso dilation dr sorensen Irritable bowel syndrome characterized by constipation 351838542 K58.1 add linzess 72,se explained ,ct abdo nxt Malignant tumor of breast 139779918 C50.919 sp rx,sp pet Osteoporosis 77766440 M8 1.0 dexa 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 2 diabetes mellitus 5025051659 107 E11.42 dn stable,bli ster .dsg zachariahdenbeatrice, sp med honey doing better,inc lantus 30 u Transient cerebral ischemia 435557115 G45.9 supp care Depressive disorder 3548 9007 F32.9 add duloxetine 30 po qd,phq 9 at 10 Urinary tr act infectious disease 01620512 N39.0 add bactrim ds plus probiotics 80523 Kavon Carney MD Main Office [address] [place] [address] 05/05/2020 09:32:03 05/05/2020 10:26:58 Pain of left calf 6781898433 826665 M79.662 s/p inactivity , [facility] Hyperglyce yoly due to type 2 diabetes mellitus 9482595807 91935 E11.65 1. A1C: 9.9 -uncontrol led -Continue medication s: lantus and novolog -Discussed diabetic diet and exercise. Low carb/sugar . -Educated on proper foot care Essential hypertension 36362007 I10 stable, monitor 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 2 diabetes mellitus 4484916849 107 E11.42 no change in sxdiscusse d tight glycemic control 42151 Kavon Carney MD Main Office [address] [place] [address] 05/25/2020 10:34:23 05/25/2020 12:04:57 Atypical mycobacterial infection 609123426 A31.9 sp lung bx,pt,and parking permit 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 4089575049 08 E11.22 sp itchy areas ,sp dm controlhba 1c 9.9% add dexcon6 Diarrheal disorder 29465 3008 R19.7 add wellchol,l abs analysis,g luten free diet Dysphagia 43794475 R13.1 0 ba swallow ,small hiatal hernia.sp eso dilation dr sorensen Essential hypertension 13117051 I10 bp log,dec lisinopril 20 po qd Diabetic foot ulcer 3710 79876 E13.621 r foot ulcer healing,no jacuzzi.sp dr sanchez ,sp antibiotic s ,sp doxy 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 432498805 E11.43 add egd [place] domperidon e 08816 Kavon Carney MD Main Office [address] [place] [address] 07/27/2020 10:24:28 07/28/2020 21:34:11 Chronic kidney disease due to type 2 diabetes mellitus 8908978683 08 E11.22 sp itchy areas ,sp dm controlhba 1c 9.9% add dexcon6 Depressive disorder 3548 9007 F32.9 add duloxetine 30 po qd,phq 9 at 10 Renewal of prescription 064207293 Z76.0 non compliant , Dysphagia 87786724 R13.1 0 ba swallow ,small hiatal hernia.sp eso dilation dr sorensen Essential hypertension 19938480 I10 bp log,dec lisinopril 20 po qd 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 030876067 E11.43 add egd and domperidon e Irritable bowel syndrome characterized by constipation 565005935 K58.1 add linzess 72,se explained ,ct abdo nxt Malignant tumor of breast 371516841 C50.919 sp rx,sp pet Osteoporosis 55284205 M8 1.0 dexa 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 sp mssa x 3months Tenosynovitis 52886974 M 65.9 left 1st digit,sp trauma Trigger finger 548723[address] alaniz sp dpn with trigger fingers 16741 Kavon Carney MD Main Office [address] [place] [address] 08/09/2020 13:51:15 08/09/2020 15:06:22 Diarrheal disorder 314005269 R19.7 add wellchol,l abs analysis,g luten free dietr,o c diffadd peptoabd 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 0452470001 08 E11.22 sp itchy areas ,sp dm controlhba 1c 9.9% add dexcon6 Clostridio ides difficile infection 302766850 A04.72 add flagyl 500 po tid x 14 days Essential hypertension 88317183 I10 bp log,dec lisinopril 20 po qd Health Concerns Section Related Observation LastModified by Organization Detai ls LastModified Time None Recorded Concern Status LastModified by Organization Details LastModified Time None Recorded Advance Directives Directive Y: Payers Encounter Date Sequence Insurance Name Policy Number Policy Guillory Covered Member ID Guillory Member ID Guarantor Name 04/13/2020 2 [place] [id number] Tosin A Gonzalez [id number] 04/13/2020 1 [place] Tosin Macario Gonzalez [id number] 05/05/2020 2 [place] [id number] Tosin A Gonzalez [id number] 05/05/2020 1 [place] Tosin A Gonzalez [id number] 05/25/2020 2 [place] [id number] Tosin A Gonzalez [id number] 05/25/2020 1 [place] Tosin A Gonzalez [id number] 07/27/2020 2 [place] [id number] Tosin A Gonzalez [id number] 07/27/2020 1 [place] Tosin A Gonzalez [id number] 08/09/2020 2 [place] [id number] Tosin A Gonzalez [id number] 08/09/2020 1 [place] Tosin A Gonzalez [id number] Notes Date Note Type Note Provider Name and Address Organization Details Recorded Time 04/13/2020 text/html Hypertension IM/FMReported bypatient.Quality:here for check-up; weakness Severity:moderate Onset/Timing:better; gradual onset Context:at rest Alleviating Factors:relieved with rest Aggravating Factors:worse with activity Self Care:exercises regularly Associated Symptoms:no palpitations; no decline in exercise capacity; exertional dyspnea; no snoring; no sleep apnea; no muscle weakness; no numbness; no tingling; no tachycardia; no excessive sweating; no thinning skin; no flank pain; no headaches; no loss of vision; no chest pain;shortness of breath;fatigueNotes:pe eling r legs Kavon Carney MD [address] [place], [address], [facility] 04/13/2020 11:15:44 05/05/2020 text/html Generic HPI TemplateReported bypatient.Location:e Quality:aching Severity:moderate Duration:constant Onset/Timin day Context:s/p riding and sitting in car [facility] 05/05/2020 10:25:00 05/25/2020 text/html sp flu shot at r arm,tender with itck add benadryl,at [facility] Kavon Carney MD [address] [place], [address], [facility] 06/14/2020 08:52:50 07/27/2020 text/html Diabetes F/URepo rted bypatient.Review finger sticks:fastin Labs:last A1C result: 10.9% Kavon Carney MD [address] [place], [address], [facility] 07/27/2020 11:42:43 08/09/2020 text/html sp pneumonia rx ,now with diarrheaand feels deletdsp [facility] follow upr,o c diffadd peto 30 ml po bidadd robitussin AC Kavon Carney MD [address] [place], [address], [facility] 08/09/2020 15:03:52 OBGyn Episode No OBEpisode recorded.
--- OUTSIDE RECORDS SUMMARY | 2024-12-22 19:16 | XMS_ITS ---
Author Organization [facility] Address [address] [place] [address] Care Team Providers Care Telemarketing Manager Name Role Phone Randa MOTA, Cassandra Primary Care Provider Kelly Mari [phone] REASON FOR VISIT r/s 01/19 Encounters Encounter Location Date Provider Diagnosis [facility] [address] [place] [address] 10/13/2024 Kelly Burr Plan Of Treatment Next Appt Details Provider Name:Kelly lakhani, 01/22/2025 01:00:00 PM, [address] [facility], [place] [address], [place], [address], Progress Notes * Nicolás GONZALEZOB:1945 (79 yo F)Acc No.[id number]:10/13/2024 Patient:?Tosin GONZALEZ :1945???Age:79 Y???Sex:Female Address:[place] [address] * true * Date:? Generated for Printi ng/Faxing/eTransmitting on:?12/22/2024 07:16 PM EDT
--- NOTE | 2024-12-22 20:05 | PC.NURSE ---
ambulated with walker. approx 30 feet with min assist. slow, steady, pt describes herself as alittle shaky. MANAGER GIFT Sergio observed. sitting at bedside now with sons in room.
[2024-12-22 21:00] VITALS: BP 143/66; PULSE 63; RESP 16; TEMP 36.6; O2SAT 99
== END 2024-12-22 21:14 | disposition home or self-care (01) ==
PROVIDERS: Physician Assistant Medical; Emergency Provider Emergency Medicine; PCP Internal Medicine
DX: R30.0 Dysuria (principal); R60.0 Localized edema; E11.9 Type 2 diabetes mellitus without complications; I10 Essential (primary) hypertension; Z79.01 Long term (current) use of anticoagulants; Z79.899 Other long term (current) drug therapy; Z79.4 Long term (current) use of insulin; Z03.818 Encounter for observation for suspected exposure to other biological agents ruled out
CPT/HCPCS: 0241U; 70450; 73630; 80048; 80076; 81001; 83735; 84484; 85025; 93005; 99284

== ENCOUNTER → 2024-12-22 12:54 | Outpatient (BNV) | payer MEDICARE, MEDICAID, SELFPAY | PROVIDERS: PCP Internal Medicine; Visit Provider Radiology Diagnostic Radiology | DX: R47.81 Slurred speech (principal); M79.671 Pain in right foot | CPT/HCPCS: 70450 ==

== ENCOUNTER → 2024-12-22 12:54 | Outpatient (BNV) | payer MEDICARE, MEDICAID, SELFPAY | PROVIDERS: Emergency Provider Emergency Medicine; PCP Internal Medicine; Visit Provider Internal Medicine | DX: I49.1 Atrial premature depolarization (principal) | CPT/HCPCS: 93010 ==

== ENCOUNTER 2024-12-23 13:18 | Outpatient (AMB) | payer MEDICARE, MEDICAID, SELFPAY ==
[2024-12-23 13:24] VITALS: BMI 25.7
--- NOTE | 2024-12-23 13:24 | A.OFFVIS_ITS ---
Vital Signs 12/23/24 13:24 Height 5 ft 4 in Weight 150 lb BMI 25.7 Intake Visit Reasons: New prob ED F/U rt hand O.A Intake Note: Tosin is a 78 year old right hand dominant female who presents today for a new problem visit for an emergency department follow up for her right hand pain, s/p fall DOI: 11/14/24. States she fell at her daughters house but did not go to ED same day. Seen at [facility] ED about 4 days later due to having increase swelling and redness. Currently states she has pain when pressure is applied to her thumb. States pain is constant. She is not able to make a full close fist and has weakness. She has numbness and tingling and her hand shakes. Hx of gout. Allergies codeine Allergy (Verified 12/23/24 13:34) Unknown duloxetine Allergy (Verified 12/23/24 13:34) Unknown gluten Allergy (Verified 12/23/24 13:34) Unknown hydromorphone Allergy (Verified 12/23/24 13:34) Unknown iodine Allergy (Verified 12/23/24 13:34) Unknown morphine Allergy (Verified 12/23/24 13:34) Unknown pregabalin Allergy (Verified 12/23/24 13:34) Unknown shellfish derived [shellfish] Allergy (Verified 12/23/24 13:34) Unknown HPI HPI New prob ED F/U rt hand O.A: Details: Patient was an 79-year-old female who presents to the office for evaluation of right hand pain. Patient states that ?I am here to be treated for my new diagnosis of gout?. The patient states that she did have an injury, but x-rays were negative and she feels that her pain from his injury has resolved, but she is experiencing pain diffusely throughout the joints of the right hand due to gout. Patient continues to report ongoing numbness and tingling, but states that her A1c has not improved and she is still not a surgical candidate for carpal or cubital tunnel releases. No other acute complaints or concerns at this time. [facility] Medical History HTN (hypertension) Cervical cancer Thyroid cancer Breast cancer Diabetes Surgical History History of hip surgery Status post partial removal of lung H/O: hysterectomy H/O mastectomy Social History Patient Tobacco Use Status: Never used Tobacco Current occupational status: retired 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 Review of Systems Const All systems reviewed & are unremarkable except as noted in HPI and below Physical Exam Vital Signs: BMI result Body Mass Index 25.7 Extrem Other: Patient is alert, oriented, and in no acute distress. Neuro: Diminished sensation of the tips of the digits of the median nerve distribution of the right hand in the office today Vascular: Cap refill brisk Pain: No tenderness to palpation noted of the joints of the right hand Pain with range of motion of the right hand ROM: Patient was able to make a closed fist and extend all digits of the right hand fully, but reports discomfort when doing so Skin: No lacerations or abrasions. General: Ccyq-ku-esrikvgc edema noted of the MCP joints of the right hand, worst on the dorsal aspect No ecchymosis, erythema, or evidence of infection. Psych: Appears grossly normal Affect normal Attitude cooperative Assessment & Plan Assessment & Plan (1) Cubital tunnel syndrome on left: Code(s): G56.22 - Lesion of ulnar nerve, left upper limb Category: Medical (2) Carpal tunnel syndrome, bilateral: Code(s): G56.03 - Carpal tunnel syndrome, bilateral upper limbs Category: Medical Plan 1. Bilateral carpal tunnel syndrome 2. Left cubital tunnel syndrome At this time, patient is educated that she is still not a surgical candidate due to her A1c Patient expresses understanding of this and is amenable to this plan Patient is educated that when her A1c is 8.0 or below, she should call us for discussion of surgical intervention for her carpal and cubital tunnel syndromes, and patient states she is still very interested in surgical intervention 3. Gout of bilateral hands, worse on the right Patient is educated that she should speak with her primary care provider for medications and further treatment options for her gout Patient was presses understanding this is amenable to this plan Follow-up as needed with any acute concerns Coding Level of Care Code Est Pt Level 3 (09329) Diagnoses Cubital tunnel syndrome on left G56.22 Carpal tunnel syndrome, bilateral G56.03
--- OUTSIDE RECORDS SUMMARY | 2024-12-23 15:54 | XMS_ITS | Clinical Summary ---
Author Organization [facility] Facility Address [address] [place] [address], [place] [address] Care Team Providers Care Reconsignment Clerk Name Role Phone Cassandra Tolentino MD Primary Care Provider [phone] Medications amLODIPine (NORVASC) 5 MG tablet Take 5 mg by mouth 1 (one) time each day Active aspirin (ST KARY) 81 MG EC tablet Take 81 mg by mouth 1 (one) time each day Active Glucagon (Baqsimi One Pack) 3 MG/DOSE powder Administer into affected nostril(s) Active ergocalciferol 1.25 MG (99945 UT) capsule Take 50,000 Units by mouth [...] AM EST) Hemoglobin A1C 8.9(H) (4.0-5.6) % [facility] Comment: MONITORING: In known diabetic patients, hemoglobin A1c targets should be discussed with health care provider. DIAGNOSTIC USE: ??The [place] Diabetes Association (ADA) and the World Health [...] Supplement 1 Testing performed or reported by [facility], a Service of [facility], [address] [place] [address] Charli Ortiz MD, Airline Security Representative [facility]# [id number] Blood (Blood, Venous) 10/24/2023 10:43 AM EST 10/24/2023 11:05 AM EST us Geovanny Allen MD LAB BLOOD ORDERABLES Marielle pat Result [facility] from Last 3 Months or Most Recently Relevant to Health Maintenance Insurance [place] Care Teams Reconsignment Clerk Relationship Specialty Start Date End Date Cassandra Tolentino MD [address] [place], [place] PCP - General 10/03/20
--- OUTSIDE RECORDS SUMMARY | 2024-12-23 15:54 | XMS_ITS ---
Author Organization [facility] Address [address] [place] [id number] Care Team Providers Care Church History Teacher Name Role Phone Randa MOTA, Cassandra Primary Care Provider Kelly Mari [phone] REASON FOR VISIT EGYPTOLOGIST PPWK Entered Encounters Encounter Location Date Provider Diagnosis [facility] [address] [place] [address] 09/02/2024 Kelly Burr Plan Of Treatment Next Appt Details Provider Name:Kelly lakhani, 01/22/2025 01:00:00 PM, [address] [facility], [place] [address], [place], [address], Progress Notes * Nicolás GONZALEZOB:1945 (78 yo F)Acc No.[id number]:09/02/2024 Patient:?Tosin GONZALEZ :1945???Age:78 Y???Sex:Female Address:[address] [place] [address] * true * Date:? Generated for Printi ng/Faxing/eTransmitting on:?12/23/2024 03:54 PM EDT
--- OUTSIDE RECORDS SUMMARY | 2024-12-23 15:54 | XMS_ITS | Clinical Summary ---
Author Organization [facility] ity Address [address] [place] [address] Care Team Providers Care Theater Technician Name Role Phone Cassandra Tolentino MD Primary Care Provider [phone] Social History Tobacco Use Types Packs/Day Years [...] Vaccines (1 of 2) 1993 RSV Immunization Adult Patie nts (1 - 1-dose 75+ series) 2018 COVID-19 [...] age to complete this topic Care Teams Theater Technician Relationship Specialty Start Date End Date Cassandra Tolentino MD [address] [place] [address] PCP - General Internal Medicine 07/03/18
--- OUTSIDE RECORDS SUMMARY | 2024-12-23 15:54 | XMS_ITS | Patient Health Record ---
Author Organization [facility] Address [address] [place] [address] Care Team Providers Care Economist Research Assistant Name Role Phone Cassandra Tolentino MD Primary Care Provider Kelly Mari Unavailable [phone] Allergies Allergen (clinical drug ingredient) Drug/Non Drug Allergy documented on EMR Reaction Allergy Type Onset Date Status hydromorphone Dilaudid Unknown Drug Allergy Act aitlio codeine Codeine Unknown Drug Allergy Active morphine [...] Problem Acquired hammer toe of right foot (1645216740700317 ) Other hammer toe(s) (acquired), right foot (M20.41) Active confirmed Problem Acquired hammer toe of left foot (6358181255595839 ) Other hammer toe(s) (acquired), left foot (M20.42) Active confirmed Problem Polyneuropathy due to type 2 diabetes mellitus (763753494) Type 2 diabetes mellitus with diabetic polyneuropathy (E11.42) Active confirmed Vital Signs Blood pressure diastolic 67 mm Hg 10/06/2024 Height 5ft 5in in 10/06/2024 Blood pressure systolic 126 mm Hg 10/06/2024 Weight 143 lbs 10/06/2024 BMI 23.79 kg/m2 10/06/2024 Procedures Procedure Date Ordered Date Performed Result Body Sit e 71972-EEFSOTQ NAIL, 6 OR MORE 10/06/2024 N/A 20490-JCAA SKIN LESIONS, OVER 4 10/06/2024 N/A Encounters Encounter Location Date [facility] [address] [place] [address] 10/06/2024 Kelly Burr Other hammer toe(s) (acquired), right foot M20.41 ; Other hammer toe(s) (acquired), left foot M20.42 ; Type 2 diabetes mellitus with diabetic polyneuropathy E11.42 and Tinea unguium B35.[address] [facility] [address] 07/16/2024 Kelly Burr [facility] [address] 09/02/2024 Kelly Burr [facility] [address] 10/13/2024 Kelly Burr Assessments Encounter Date Diagnosis [...] Treatment Pending Test Test Name Order Date 82601-GAJDEZB NAIL, 6 OR MORE 10/06/2024 56718-TLDN SKIN LESIONS, OVER 4 10/06/19 Next Appt Details Provider Name:Kelly Ovalle kar, 01/22/2025 01:00:00 PM, [address] [facility], [address], [place], [address], Insurance Providers Payer Name Payer Address Payer Phone Subscriber Number Group Number Insured Name Patient Relationship to Insured Coverage Start Date Coverage End Date Medicare National [employer] [address] [facility] [place] [address] [id number] Tosin Gonzalez Self - patient is the [...]
--- OUTSIDE RECORDS SUMMARY | 2024-12-23 15:54 | XMS_ITS ---
[facility] Address [address] [place] [address] Care Team Providers Care Clinical Research Specialist Name Role Phone Cassandra Tolentino MD Primary Care Provider Kelly Mari Unavailable [phone] Allergies Allergen (clinical drug ingredient) Drug/Non Drug [...] Problem Acquired hammer toe of right foot (6747758678278363 ) Other hammer toe(s) (acquired), right foot (M20.41) Active confirmed Problem Acquired hammer toe of left foot (7712781049780821 ) Other hammer toe(s) (acquired), left foot (M20.42) Active confirmed Problem Polyneuropathy due to type 2 diabetes mellitus (109436393) Type 2 diabetes mellitus with diabetic polyneuropathy (E11.42) Active confirmed Vital Signs Height 5ft 5in in 10/06/2024 Weight 143 lbs 10/06/2024 BMI 23.79 kg/m2 10/06/2024 Blood pressure systolic 126 mm Hg 10/06/19 25 Blood pressure diastolic 67 mm Hg 025 Procedures Procedure Date Ordered Date Performed Result Body Sit e 49793-AYVGBND NAIL, 6 OR MORE 10/06/2024 N/A 59461-BUXQ SKIN LESIONS, OVER 4 10/06/2024 N/A Encounters Encounter Location Date Provider Diagnosis [facility] [address] [address] 10/06/2024 Kelly Burr Other hammer toe(s) (acquired), [...] INSTRUCTIONS.pdf) Pending Test Test Name Order Date 97246-HZEZCYZ NAIL, 6 OR MORE 10/06/2024 53897-LJUZ SKIN LESIONS, OVER 4 10/06/19 25 Next Appt Details Follow Up: 3 Months, Reason: Provider Name:Kelly lakhani, 01/22/2025 01:00:00 PM, [address], [place], [address], Procedure Notes * Category Sub-Category Detail Notes [...] use of a nail nipper and/or dremel-type pulp grinder and blender, to a more viable healthy nail plate [...] to maintain effectiveness in symptomatic relief - 11048 Keratoma Treatment Parring or Cutting o f [...] instrumentation by the physician of record - 06913 Progress Notes * Nicolás GONZALEZOB:1945 (78 yo F)Acc No.[id number]:10/06/2024 Progress Notes Patient:?Tosin GONZALEZ Provider:?Kelly Burr DPM :1945???Age:78 Y???Sex:Female D ate:10/06/2024 Address: [address], [facility], [facility] Pcp:Cassandra Tolentino MD Subjective: * Chief Complaints: [...] 2.?Type 2 diabetes mellitus with diabetic polyneuropathy?Procedure: 63524-HNETPIC NAIL, 6 OR MORE ?Procedure: 73438-BFMA SKIN LESIONS, OVER 4 * Procedures:?Debride Nail [...] use of a nail nipper and/or dremel-type pulp grinder and blender, to a more viable healthy nail plate [...] to maintain effectiveness in symptomatic relief - 31249.?Keratoma Treatment:?Parring or Cutting of Benign Hyperkeratotic Lesion(s)?(-57) [...] instrumentation by the physician of record - 10756.? * Procedure Codes:?35465 DEBRI DE NAIL, 6 OR MORE, Modifiers: XS 19566 TRIM SKIN LESIONS, OVER 4, Modifiers: XS [...] DPM Date:?0 10/06/2024 Generated for Obdulio ratliff/Garrett/eTransmitting on:?12/23/2024 03:54 PM EDT History and Physical Notes * [...] d iminished Sensory and motor testing performed:: [facility] normal Pedal pulse taking performed:: absent [...]
--- OUTSIDE RECORDS SUMMARY | 2024-12-23 15:55 | XMS_ITS ---
Author Organization [facility] Address [address] [place] [address] Care Team Providers Care Hogshead Wrecker Name Role Phone Randa OMTA, Cassandra Primary Care Provider Kelly Mari [phone] REASON FOR VISIT r/s 01/19 Encounters Encounter Location Date Provider Diagnosis [facility] [address] [place] [address] 10/13/2024 Kelly Burr Plan Of Treatment Next Appt Details Provider Name:Kelly lakhani, 01/22/2025 01:00:00 PM, [address] [facility], [address] [address], [place], [address], Progress Notes * Nicolás GONZALEZOB:1945 (79 yo F)Acc No.[id number]:10/13/2024 Patient:?Tosin GONZALEZ :1945???Age:79 Y???Sex:Female Address:[place] [address] * true * Date:? Generated for Printi ng/Faxing/eTransmitting on:?12/23/2024 03:54 PM EDT
== END 2024-12-23 13:56 | disposition home or self-care (01) ==
LOC: HO.HOS 13:18
PROVIDERS: PCP Internal Medicine
DX: G56.22 Lesion of ulnar nerve, left upper limb (principal); G56.03 Carpal tunnel syndrome, bilateral upper limbs
CPT/HCPCS: 99213

== ENCOUNTER → 2024-12-23 13:18 | Outpatient (BNVA) | payer MEDICARE, MEDICAID, SELFPAY | PROVIDERS: PCP Internal Medicine | DX: G56.22 Lesion of ulnar nerve, left upper limb (principal); G56.03 Carpal tunnel syndrome, bilateral upper limbs | CPT/HCPCS: 99212 ==

== ENCOUNTER 2025-02-11 11:40 | Outpatient (REF) | payer MEDICARE, MEDICAID, SELFPAY ==
--- NOTE | ~2025-02-11 | XR_ITS ---
CLINICAL HISTORY: M25.551 - Pain in right hip 2 view right femur Comparison: 05/12/2024 Findings: Iatrogenic findings with surgical hardware remains in position. There are no acute fractures. No knee effusion. No significant arthritic change. No other radiopaque foreign body. There is regional arterial calcification. IMPRESSION: 1. No acute findings This document has been electronically signed by: Antonio Hamm MD on 02/12/2025 14:42:44
--- OUTSIDE RECORDS SUMMARY | 2025-02-12 11:43 | XMS_ITS | Patient Health Record ---
Author Organization [facility] Address [address] [place] [address] Care Team Providers Care Dump Truck Operator Name Role Phone Cassandra Tolentino MD Primary Care Provider Kelly Mari Unavailable [phone] Allergies Allergen (clinical drug ingredient) Drug/Non Drug Allergy documented on EMR Reaction Allergy Type Onset Date Status hydromorphone Dilaudid Unknown Drug Allergy Act atilio codeine Codeine Unknown Drug Allergy Active morphine Morphine Unknown Drug Allergy Active Results Component Value Reference Range Notes HEMOGLOBIN A1C (GLYCOHEMOGLO BIN) Reviewed date:10/06/2024 01:21:51 PM Interpretation: Performing Lab: Notes/Report: HEMOGLOBIN A1C % (HH) 10.0 HEMOGLOBIN A1C (GLYCOHEMOGLO BIN) Reviewed date:01/22/2025 12:57:38 PM Interpretation: Performing Lab: Notes/Report: HEMOGLOBIN A1C % (HH) 7.7 Reason For Referral No Information Medications Medication [...] Polyneuropathy due to type 2 diabetes mellitus (113910785) Type 2 diabetes mellitus with diabetic polyneuropathy (E11.42) Active confirmed Vital Signs Blood pressure diastolic 67 mm Hg 10/06/2024 Height 5ft 5in in 01/22/2025 Blood pressure systolic 126 mm Hg 10/06/2024 Weight 143 lbs 01/22/2025 BMI 23.79 kg/m2 01/22/2025 Procedures Procedure Date Ordered Date Performed Result Body Sit e 09990-DOLHEWB NAIL, 6 OR MORE 10/06/2024 N/A 97658-WBTL SKIN LESIONS, OVER 4 10/06/2024 N/A Encounters Encounter Location Date Provider Diagnosis [address] [address] 10/06/2024 Kelly Burr Other hammer toe(s) (acquired), right foot M20.41 ; Other hammer toe(s) (acquired), left foot M20.42 ; Type 2 diabetes mellitus with diabetic polyneuropathy E11.42 and Tinea unguium B35.[address] [address] 01/22/2025 Kelly Burr Type 2 diabetes mellitus with diabetic polyneuropathy E11.42 and Tinea unguium B35.[address] [address] 07/16/2024 Kelly Burr [address] [address] 09/02/2024 Kelly Burr [address] [address] 10/13/2024 Kelly Burr Assessments Encounter Date Diagnosis [...] Treatment Pending Test Test Name Order Date 51496-[id number] NAIL, 6 OR MORE 10/06/2024 41174-SKKQ SKIN LESIONS, OVER 4 10/06/19 Next Appt Details Provider Name:Kelly Ovalle kar, 04/23/2025 02:00:00 PM, [address] [facility], [facility] [address], [place], [address], Insurance Providers Payer Name Payer Address Payer Phone Subscriber Number Group Number Insured Name Patient Relationship to Insured Coverage Start Date Coverage End Date Medicare National [employer] [address] [place] [address] [id number] Tosin Gonzalez Self - patient is the [...]
== END 2025-02-11 11:41 | disposition home or self-care (01) ==
LOC: HO.HOSX 11:40
PROVIDERS: Visit Provider Orthopaedic Surgery
DX: M25.551 Pain in right hip (principal)
CPT/HCPCS: 73552; 99212

== ENCOUNTER 2025-02-11 13:08 | Outpatient (AMB) | payer MEDICARE, MEDICAID, SELFPAY ==
--- OUTSIDE RECORDS SUMMARY | 2025-02-11 13:11 | XMS_ITS | Clinical Summary ---
Author Organization [facility] ity Address [address] [place] [address] Care Team Providers Care Textile Slitting Machine Operator Name Role Phone Cassandra Tolentino MD Primary Care Provider [phone] Social History Tobacco Use Types Packs/Day Years [...] Vaccine (2023-2 5 season) 2024 Influenza Vaccine (Season Ended) 2025 HIB Vaccines Aged Out No longer eligi [...] age to complete this topic Meningococcal B Vaccine Aged Out No l onger eligible based on patient's age to complete this topic RSV Immunization Patients Un vimal 20 months Aged Out No longer eligible b ased on patient's age to complete this topic Varicella Vaccines Aged Out No longer eligible based on patient's age to complete this topic Care Teams Textile Slitting Machine Operator Relationship Specialty Start Date End Date Cassandra Tolentino MD [address] [place] [address] PCP - General Internal Medicine 07/03/18
--- OUTSIDE RECORDS SUMMARY | 2025-02-11 13:11 | XMS_ITS ---
Author Organization [facility] Address [address] [place] [address] Care Team Providers Care Water Plant Maintenance Mechanic Name Role Phone Randa MOTA, Cassandra Primary Care Provider UnavailKelly Chau [phone] Encounters Encounter Location Date Provider Diagnosis [facility] [address] [place] [address] 01/19/2025 Kelly Burr Plan Of Treatment Next Appt Details Provider Name:Kelly lakhani, 04/23/2025 02:00:00 PM, [address] [address], [place], [address], Progress Notes * Nicolás GONZALEZOB:1945 (79 yo F)Acc No.[id number]:01/19/2025 Progress Note Patient:?Tosin GONZALEZ Provider:?Kelly Burr DPM :1945???Age:79 Y???Sex:Female D ate:01/19/2025 Address: [facility] [address] [place] Pcp:Cassandra Tolentino MD Subjective: * Chief Complaints: * ??? * Medical History:? Objective: * Vitals:? Assessment: Plan: * Treatment: * Images: * The named appointment provid er may or may not be the originator of this progress note, and it is not deemed complete until electronically signed by the appointment provider. Sign off status: Pending * Provider:?Kelly Burr DPM Date:?0 01/19/2025 Generated for Obdulio ratliff/Garrett/Normanitting on:?02/11/2025 01:11 PM EDT
--- OUTSIDE RECORDS SUMMARY | 2025-02-11 13:11 | XMS_ITS | Patient Health Record ---
Author [facility] Address [address] [place] [address] Care Team Providers Care Manager Special Events Name Role Phone Cassandra Tolentino MD Primary Care Provider Kelly Mari Unavailable [phone] Allergies Allergen (clinical drug ingredient) Drug/Non Drug Allergy documented on EMR Reaction Allergy Type Onset Date Status hydromorphone Dilaudid Unknown Drug Allergy Act atilio codeine Codeine Unknown Drug Allergy Active morphine Morphine Unknown Drug Allergy Active Results Component Value Reference Range Notes HEMOGLOBIN A1C (GLYCOHEMOGLO BIN) Reviewed date:01/22/2025 12:57:38 PM Interpretation: Performing Lab: Notes/Report: HEMOGLOBIN A1C % (HH) 7.7 HEMOGLOBIN A1C (GLYCOHEMOGLO BIN) Reviewed date:10/06/2024 01:21:51 PM Interpretation: Performing Lab: Notes/Report: HEMOGLOBIN A1C % (HH) 10.0 Reason For Referral No Information Medications Medication SIG (Take, Route, Frequency, Duration) Notes Start Date End Date Status Vitamin D Active Vitamin B12 Active Magnesium Oxide Acti ve Levothyroxine Sodium Active Furosemide Active Ferrous Sulfate Acti ve Eliquis Active amLODIPine Besylate Active Alendronate Sodium A ctive Extra Depth Orthopedic Shoes (1 Pair) with [...] Problem Status W/U Status Risk Notes Problem Polyneuropathy due to type 2 diabetes mellitus (521408822) Type 2 diabetes mellitus with diabetic polyneuropathy (E11.42) Active confirmed Vital Signs Blood pressure diastolic 67 mm Hg 10/06/2024 Height 5ft 5in in 01/22/2025 Blood pressure systolic 126 mm Hg 10/06/2024 Weight 143 lbs 01/22/2025 BMI 23.79 kg/m2 01/22/2025 Procedures Procedure Date Ordered Date Performed Result Body Sit e 18648-YQXT SKIN LESIONS, OVER 4 10/06/2024 N/A 16813-YDDRKOR NAIL, 6 OR MORE 10/06/2024 N/A Encounters Encounter Location Date Provider Diagnosis [address] [address] 10/06/2024 Kelly Burr Other hammer toe(s) (acquired), right foot M20.41 ; Other hammer toe(s) (acquired), left foot M20.42 ; Type 2 diabetes mellitus with diabetic polyneuropathy E11.42 and Tinea unguium B35.[address] [address] 01/22/2025 Kelly Burr Type 2 diabetes mellitus with diabetic polyneuropathy E11.42 and Tinea unguium B35.[address] [address] 07/16/2024 Kelly Burr [address] [address] 09/02/2024 Kelly Burr [address] [address] 10/13/2024 Kelly Burr Assessments Encounter Date Diagnosis (ICD Code) Assessment Notes Treatment Notes Treatment Clinical Notes Section Notes 10/06/2024 Other hammer toe(s) (acquired), right foot (ICD-10 - M20.41) Patient Educated with: DIABETIC FOOT CARE INSTRUCTIONS. pdf (DIABETIC FOOT CARE INSTRUCTIONS. pdf) 10/06/2024 Other hammer toe(s) (acquired), left foot (ICD-10 - M20.42) 01/22/2025 Type 2 diabetes mellitus with diabetic polyneuropathy (ICD-10 - E11.42) 01/22/2025 Tinea unguium (ICD-10 - B35.1) 10/06/2024 Type 2 diabetes mellitus with diabetic polyneuropathy (ICD-10 - E11.42) 10/06/2024 Tinea unguium (ICD-10 - B35.1) Plan Of Treatment Pending Test Test Name Order Date 34231-QWWOWXY NAIL, 6 OR MORE 10/06/2024 84547-YXUF SKIN LESIONS, OVER 4 10/06/19 Next Appt Details Provider Name:Kelly Ovalle kar, 04/23/2025 02:00:00 PM, [address] [facility] [facility] [address], [place], [address], Insurance Providers Payer Name Payer Address Payer Phone Subscriber Number Group Number Insured Name Patient Relationship to Insured Coverage Start Date Coverage End Date Medicare National [employer] [address] [place] [address] [id number] Tosin Gonzalez Self - patient is the [...]
--- OUTSIDE RECORDS SUMMARY | 2025-02-11 13:12 | XMS_ITS | Data Portability ---
Author Organization [place] [facility], Main Office Address [address] [facility] [address] [address] [place] [address] Care Team Providers Care Security Representative Name Role Phone ALANA SANCHEZ Referring Provider Assessment No assessment recorded. Plan of Treatment Reminders Order Date Submit Date Provider Last Modified By Organization Details Last Modified Time Details Appointments None recorded. Lab None recorded. Referral hand surgeon referral 2019 ck Alaniz MD ([facility]), [address], [place], [address], 0 11:53:41 Procedures None recorded. Surgeries None recorded. Imaging US, duplex, venous, lower extremity 2019 020 [facility], [address] [place] [address] Dr Cochran, [place] [address], [place], [address], 0 16:07:00 Medication Orders tramadol 50 mg tablet 2019 020 [id number], [address], [place], [address], 0 11:39:14 Bactrim DS 800 mg-160 mg tablet 2019 020 [id number], [address] [place], [address], 0 11:43:06 duloxetine 30 mg capsule,de layed release 2019 020 [id number], [address] [place], [address], 0 11:15:22 Patient TargetsNo targets recorded. Patient Instructions Encounter Date Encounter Id Patient Instructions Last Modified By Organization Details Last Modified Time 04/13/2020 [id number] learning about swallowing problems Not available 04/13/2020 [...] po qd Not available 04/13/2020 11:12:40 05/05/2020 [id number] The medical decision making and treatment plan, as documented above, have been made in collaboration with Dr. Carney. They are part of the normal course of treatment for the patient. Dr. Carney is actively involved as has provided direct supervision while remaining available on site to render service, if necessary. abriles Not available 05/05/2020 10:21:00 05/25/2020 [id number] learning about swallowing problems Not available 06/14/2020 08:52:45 high blood pressure: care instructions Not available 06/14/2020 08:52:45 learning about high blood pressure Not available 06/14/2020 08:52:45 sp vomiiting sp dm gastroparesis bm hygeine hba1c follow up ok for dm shoes Not available 05/25/2020 11:43:03 sp eye inj cente r for sight Not available 05/25/2020 11:45:59 07/27/2020 [id number] learning about swallowing problems Not available 07/27/2020 [...] to endo Not available 07/27/2020 11:38:28 08/09/2020 [id number] Clostridioides Difficile (C. diff) Colitis: Care Instructions [...] 20 05/05/2020 US, rebekah x, celina s, [facility] mity No observ ation record ed. [email or web address] [facility] [address], [place], [address], 05/09/2020 09:51:57 Result Notes None recorded. 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 Not Available [facility] 0 13:06:26 Diabetic foot ulcer 112145599 Active 2018 Not Available [facility] 0 13:06:26 Chronic kidney disease due to type 2 diabetes mellitus 227671237128 Active 2018 Not Available [facility] 0 13:06:25 Tenosynovi tis 00417705 Active 2019 Not Available [facility] 0 13:06:26 Depressive disorder 97095903 Active 2019 Not Available [facility] 0 13:06:26 Urinary tract infectious disease 97246809 Active 2019 Not Available [facility] 0 13:06:26 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 709089614 Active 2019 Kavon Carney MD [address] [place], [address] , [facility] 0 11:45:12 Trigger finger Active 2019 Kavon Carney MD [address] [place], [address] , [facility] 0 11:41:40 Dysphagia 24880909 Active 2016 Not Available [facility] 0 13:06:26 Imaging of lung abnormal 992597644 Active 2016 Not Available [facility] 0 13:06:26 Atypical mycobacter ial infection 473929626 Active 2016 Not Available [facility] 0 13:06:26 Essential hypertensi on 88031597 Active 2016 Not Available [facility] 0 13:06:26 Osteoporos is 41188461 Active 2016 Not Available [facility] 0 13:06:26 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 2 diabetes mellitus 4990654829648 Active 2016 Not Available [facility] 0 13:06:26 Malignant tumor of breast 054100009 Active 2016 Not Available [facility] 0 13:06:26 Transient cerebral ischemia 024448679 Active 2016 Not Available [facility] 0 13:06:26 Problem Notes None recorded. Procedures Surgical History Date Name Laterality Status Provider Name and Address Organization Details Recorded Time Total Hysterectomy completed Cinda Banuelos APRN [facility] 10/05/2016 15:03:20 Imaging Results Imaging Date Name Status LastModified by Organiz ation Details LastModified Time 05/05/2020 US, duplex, venous, lower extremity completed [email or web address] [facility] [address], [place], [address], 05/09/2020 09:51:57 Procedure Notes None recorded. Medical Equipment None Reported. Allergies Allergen ID Allergen Name Allergen Category Reaction Reaction Severity Criticality Documentation Date Start Date Code Code System Note Provider Name and Address Organization Details Recorded Time 110 codeine medicatio n nausea Not available Not available 10/05/2016 2670 RxNorm Cinda Banuelos APRN [facility] 7 14:54:02 Medications Name Sig Start Date Stop Date Status Note LastModified by Organization Details LastModified Time Prescript ion - Change active Not Available Not Available Not Available Prescript ion - New 12/20 completed Not [...] Updated DateTime 0 165.1 cm 27.6 kg/m2 35211.3 3 g 76 /min 99 % 99 % 97.7 [degF] 130 mm[Hg] 80 mm[Hg] [facility] 0 10:39:13 Date Recorded Body height Body mass index (BMI) Body weight Body temperature Oxygen saturation Oxygen saturation in Arterial blood by Pulse oximetry Heart rate Systolic blood pressure Diastolic blood pressure Provider Name and Address Organization Details Last Updated DateTime 0 165.1 cm 27.8 kg/m2 40693.9 3 g 97.1 [degF] 98 % 98 % 70 /min 145 mm[Hg] 85 mm[Hg] Jennifer Sherman [facility] 0 09:52:53 Date Recorded Body height Body mass index (BMI) Body weight Oxygen saturation Oxygen saturation in Arterial blood by Pulse oximetry Heart rate Body temperature Systolic blood pressure Diastolic blood pressure Provider Name and Address Organization Details Last Updated DateTime 0 165.1 cm 27.8 kg/m2 38574.9 3 g 97 % 97 % 79 /min 97.9 [degF] 118 mm[Hg] 70 mm[Hg] cristopher [facility] 0 11:13:42 Date Recorded Body height Body mass index (BMI) Body weight Body temperature Oxygen saturation Oxygen saturation in Arterial blood by Pulse oximetry Heart rate Systolic blood pressure Diastolic blood pressure Provider Name and Address Organization Details Last Updated DateTime 0 165.1 cm 27.8 kg/m2 93680.9 3 g 97.3 [degF] 98 % 98 % 77 /min 122 mm[Hg] 70 mm[Hg] Jennifer Sherman [facility] 0 11:15:58 Date Recorded Body height Body mass index (BMI) Body weight Body temperature Heart rate Oxygen saturation Oxygen saturation in Arterial blood by Pulse oximetry Systolic blood pressure Diastolic blood pressure Provider Name and Address Organization Details Last Updated DateTime 0 165.1 cm 27.8 kg/m2 44643.9 3 g 97.5 [degF] 69 /min 96 % 96 % 100 mm[Hg] 70 mm[Hg] cristopher bobby [facility] 0 14:40:33 Social History Question Answer Notes LastModified by Organizat ion Details LastModified Time Tobacco Smoking Status Former Smoker Not Available [facility] 07/26/2020 03:17:05 Do You Have An Advance Directive? Yes [id number] Information not available 07/26/2020 What Is Your Level Of Caffeine Consumption? None [id number] Information not available 07/26/2020 Which Illicit Or Recreational Drugs Have You Used? No [id number] Information not available 07/26/2020 Do You Reside In Or Have You Traveled To An Area Where Ebola Virus Transmission Is Active? No [id number] Information not available 07/26/2020 Education 2 Year College Information not available 10/05/2016 Marital Status Informatio n not available 10/05/2016 Seat Belts Used Routinely Yes Information not available 10/05/2016 How Many Years Have You Smoked Tobacco? 40 [id number] Information not available 07/26/2020 Sex: Unknown Functional Status Question Answer Note LastModified by Organization D etails LastModified Time What is your level of alcohol consumption? None [id number] Information not available 07/26/2020 What is your occupation? retired [id number] Information not available 07/26/2020 Mental Status None recorded. Family History Relationship [...] N Thyroid Disease Y Blood Transfusion N Incontinence N Meniere's disease N Hearing Problems N Obesity N Any type of Cancer N Polyps N Mental Disorder N Stroke N COPD/Emphysema N Bladder or Kidney Problems N High Cholesterol N Liver Disease N Fibromyalgia N Headaches N GI Problems N Skin Problems N Anemia N DVT/Blood clots N Diabetes N Seizures/Epilepsy N Tuberculosis N AIDS/HIV N Diverticulitis N Asthma N Vision Problems N Lupus N Reflux/GERD N Hepatitis N Heart Disease N Pulmonary Embolism N Hypertension N ADHD/PTSD N Chicken Pox N Osteoporosis N Gynecological HistoryNo gynecological history recorded. Obstetrics History GPAL:G 0 P 0 0 0 0 Immunizations Vaccine Type Date Status Note Provider Nam e and Address Organization Details Recorded Time Influenza, split virus, quadrivalent, preservative 7 completed REYMUNDO Mitchell [facility] 10/05/2016 14:59:59 Pneumococcal conjugate PCV 13 7 completed ERYMUNDO Mitchell [facility] 10/05/2016 15:00:23 Past Encounters Encounter ID Performer Location Encounter Start Date Encounter Closed Date Diagnosis/Indication Diagnosis SNOMED-CT Code Diagnosis ICD10 Code Diagnosis Note [id number] Cinda Banuelos NP, S Main Office [address] [place] [address] 10/05/2016 14:36:53 10/05/2016 16:39:34 Acute maxillary sinusitis 12409341 J01.00 Cough 43880234 R05 [id number] Kavon Carney MD Main Office [address] [place] [address] 11/06/2016 13:17:42 11/09/2016 15:23:28 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 2 diabetes mellitus 1463950489 107 E11.42 Malignant tumor of breast 574921560 C50.919 sp rx,sp pet Transient cerebral ischemia 773356541 G45.9 supp care Essential hypertension 78444910 I10 bp log Osteoporosis 10036356 M8 1.0 dexa Dysphagia 11601187 R13.1 0 ba swallow ,small hiatal hernia Atypical mycobacterial infection 509632413 A31.9 sp lung bx,pt,and parking permit Imaging of lung abnormal 265753817 R91.8 sp pet re removal of r lobectomy [id number] Kavon Carney MD Main Office [address] [employer] [place] [address] 12/07/2016 10:59:54 12/07/2016 12:05:57 Diabetes mellitus 45553289 E11.40 [id number] Kavon Carney MD Main Office [address] [employer] [place] [address] 01/04/2017 13:14:06 01/10/2017 23:47:31 Atypical mycobacterial infection 521105182 A31.9 sp lung bx,pt,and parking permit Imaging of lung abnormal 378051436 R91.8 sp pet re removal of r lobectomy Dysphagia 91159404 R13.1 0 ba swallow ,small hiatal hernia.sp eso dilation dr sorensen 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 2 diabetes mellitus 6087722055 107 E11.42 dn stable Malignant tumor of breast 521049312 C50.919 sp rx,sp pet Transient cerebral ischemia 320193413 G45.9 supp care Essential hypertension 86274313 I10 bp log,dec lisinopril 20 [place]d [id number] Kavon Carney MD Main Office [address] [employer] [place] [address] 11/06/2017 14:30:13 11/06/2017 15:59:41 Malignant tumor of breast 528783602 C50.919 sp rx,sp pet 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 2 diabetes mellitus 1377118565 107 E11.42 dn stable Diarrheal disorder 48687 3008 R19.7 add wellchol,l abs analysis [id number] Kavon Carney MD Main Office [address] [place] [address] 11/12/2017 14:08:11 11/12/2017 15:23:24 Diarrheal disorder 247678470 R19.7 add wellchol,l abs analysis,g luten free diet Malignant tumor of breast 163450147 C50.919 sp rx,sp pet 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 2 diabetes mellitus 0543489367 107 E11.42 dn stable,bli ster .dsg silvadene Transient cerebral ischemia 313425336 G45.9 supp care Essential hypertension 74078294 I10 bp log,dec lisinopril 20 po qd Osteoporosis 18466922 M8 1.0 dexa [id number] Kavon Carney MD Main Office [address] [place] [place] [address] 11/19/2017 14:40:00 11/19/2017 22:44:38 Diarrheal disorder 430992059 R19.7 add wellchol,l abs analysis,g luten free diet Atypical mycobacterial infection 022962651 A31.9 sp lung bx,pt,and parking permit Imaging of lung abnormal 349085111 R91.8 sp pet re removal of r lobectomy Dysphagia 22305001 R13.1 0 ba swallow ,small hiatal hernia.sp eso dilation dr sorensen 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 2 diabetes mellitus 1260260550 107 E11.42 dn stable,bli ster .dsg silvadene Malignant tumor of breast 824831001 C50.919 sp rx,sp pet Clostridio ides difficile infection 392173331 A04.72 add flagyl 500 po tid x 14 days [id number] Kavon Carney MD Main Office [address] [place] [address] 12/12/2017 11:09:15 12/12/2017 12:05:00 Diarrheal disorder 176398433 R19.7 add wellchol,l abs analysis,g luten free diet Dysphagia 75435587 R13.1 0 ba swallow ,small hiatal hernia.sp eso dilation dr sorensen 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 2 diabetes mellitus 3532244315 107 E11.42 dn stable,bli ster .dsg silvadene Transient cerebral ischemia 763218949 G45.9 supp care Essential hypertension 26613178 I10 bp log,dec lisinopril 20 [place] qd [id number] Kavon Carney MD Main Office [address] [place] [address] 02/06/2018 10:42:29 02/06/2018 11:44:53 Essential hypertension 25573194 I10 bp log,dec lisinopril 20 po qd Renewal of prescription 582507844 Z76.0 non compliant , 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 2 diabetes mellitus 8025335403 107 E11.42 dn stable,bli ster .dsg silvadene, sp med honey doing better Malignant tumor of breast 176966381 C50.919 sp rx,sp pet Transient cerebral ischemia 917516867 G45.9 supp care [id number] Kavon Carney MD Main Office [address] [employer] [address] 02/28/2018 08:46:20 02/28/2018 13:42:00 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 2 diabetes mellitus 8985637091 107 E11.42 dn stable,bli ster .dsg silvadene, sp med honey doing better,inc lantus 30 u Transient cerebral ischemia 068947870 G45.9 supp care Essential hypertension 71355098 I10 bp log,dec [place] 20 [place] [id number] Kavon Carney MD Main Office [address] [employer] [address] 03/07/2018 09:08:24 03/07/2018 10:16:11 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 2 diabetes mellitus 8450916813 107 E11.42 dn stable,bli ster .dsg silvadene, sp med honey doing better,inc lantus 30 u Transient cerebral ischemia 030528948 G45.9 supp care Essential hypertension 67790937 I10 bp log,dec lisinopril 20 po qd Irritable bowel syndrome characterized by constipation 397432308 K58.1 add linzess 72,se explained ,[place] [id number] Kavon Carney MD Main Office [address] [place] [address] 06/24/2019 16:06:54 07/01/2019 21:21:43 Essential hypertension 43569698 I10 bp log,dec lisinopril 20 po qd Irritable bowel syndrome characterized by constipation 677504929 K58.1 add linzess 72,se explained ,ct abdo nxt Diarrheal disorder 95370 3008 R19.7 add wellchol,l abs analysis,g luten free diet Atypical mycobacterial infection 609062413 A31.9 sp lung bx,pt,and parking permit Imaging of lung abnormal 022883418 R91.8 sp pet re removal of r lobectomy 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 2 diabetes mellitus 9825760977 107 E11.42 dn stable,bli ster .dsg silvadene, sp med honey doing better,inc lantus 30 u Malignant tumor of breast 042783372 C50.919 sp rx,sp pet Transient cerebral ischemia 427889611 G45.9 supp care Osteoporosis 39397770 M8 1.0 dexa 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 sp mssa x 3months Diabetic foot ulcer 3710 21477 E13.621 r foot ulcer healing,no jacuzzi [id number] Kavon Carney MD Main Office [address] [place] [address] 07/08/2019 15:45:44 07/08/2019 17:28:48 Diabetic foot ulcer 308433560 E13.621 r foot ulcer healing,no jacuzzi.sp dr sanchez ,sp antibiotic s ,sp doxy 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 2 diabetes mellitus 1120126094 107 E11.42 dn stable,bli ster .dsg silvadene, sp med honey doing better,inc lantus 30 u Essential hypertension 46167510 I10 bp log,dec lisinopril 20 po qd Osteoporosis 19228896 M8 1.0 dexa 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 4047748856 08 E11.22 sp itchy areas ,sp dm control [id number] Kavon Carney MD Main Office [address] [place] [address] 07/31/2019 10:14:30 07/31/2019 11:19:31 Diabetic foot ulcer 264936080 E13.621 r foot ulcer healing,no jacuzzi.sp dr sanchez ,sp antibiotic s ,sp doxy 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 2536064842 08 E11.22 sp itchy areas ,sp dm control 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 2 diabetes mellitus 4788274633 107 E11.42 dn stable,bli ster .dsg silvadene, sp med honey doing better,inc lantus 30 u [id number] Kavon Carney MD Main Office [address] [place] [address] 08/17/2019 11:06:07 08/20/2019 17:03:48 Chronic kidney disease due to type 2 diabetes mellitus 8601063925 08 E11.22 sp itchy areas ,sp dm control Diabetic foot ulcer 3710 36064 E13.621 r foot ulcer healing,no jacuzzi.sp dr sanchez ,sp antibiotic s ,sp doxy Dysphagia 21108961 R13.1 0 ba swallow ,small hiatal hernia.sp eso dilation dr sorensen Essential hypertension 01650202 I10 bp log,dec lisinopril 20 po qd Irritable bowel syndrome characterized by constipation 407768102 K58.1 add linzess 72,se explained ,ct abdo nxt Osteoporosis 20750346 M8 1.0 dexa 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 2 diabetes mellitus 6173070875 107 E11.42 dn stable,bli ster .dsg zachariahdene, sp med honey doing better,inc lantus 30 u 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 sp mssa x 3months [id number] Kavon Carney MD Main Office [address] [place] [address] 09/30/2019 14:02:45 10/01/2019 22:08:55 Chronic kidney disease due to type 2 diabetes mellitus 2298979519 08 E11.22 sp itchy areas ,sp dm control Diabetic foot ulcer 3710 63609 E13.621 r foot ulcer healing,no jacuzzi.sp dr sanchez ,sp antibiotic s ,sp doxy Dysphagia 74819126 R13.1 0 ba swallow ,small hiatal hernia.sp eso dilation dr sorensen Essential hypertension 45289906 I10 bp log,dec lisinopril 20 po qd Irritable bowel syndrome characterized by constipation 857892496 K58.1 add linzess 72,se explained ,ct abdo nxt Malignant tumor of breast 148861023 C50.919 sp rx,sp pet Osteoporosis 14718111 M8 1.0 dexa 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 2 diabetes mellitus 4252726608 107 E11.42 dn stable,bli ster .dsg silvadenbeatrice, sp med honey doing better,inc lantus 30 u Tenosynovitis 12348198 M 65.9 left 1st digit,sp trauma Transient cerebral ischemia 360657669 G45.9 supp care Renewal of prescription 007923194 Z76.0 non compliant , [id number] Kavon Carney MD Main Office [address] [place] [address] 11/03/2019 14:02:25 11/03/2019 15:10:47 Atypical mycobacterial infection 913104650 A31.9 sp lung bx,pt,and parking permit 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 0477589165 08 E11.22 sp itchy areas ,sp dm control Diabetic foot ulcer 3710 99650 E13.621 r foot ulcer healing,no jacuzzi.sp dr sanchez ,sp antibiotic s ,sp doxy Essential hypertension 27807171 I10 bp log,dec lisinopril 20 po qd Irritable bowel syndrome characterized by constipation 119757920 K58.1 add linzess 72,se explained ,ct abdo nxt 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 2 diabetes mellitus 3601706545 107 E11.42 dn stable,bli ster .dsg anna glaser med honey doing better,inc lantus 30 u Renewal of prescription 460478590 Z76.0 non compliant , [id number] Cinda Banuelos, ZACHARY, S Main Office [address] [place] [address] 12/21/2019 13:40:40 12/21/2019 17:05:37 Low back pain 629583173 M54.5 x 3 days, lumbar strain s/p mopping floor, ok for tramadol x 3 days, rest, add ice or heat, instructed if no improvemen t or worsening to call to office 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 2 diabetes mellitus 5138735304 107 E11.42 pt reports high sugars recently s/p foot surgery, monitor daily, continue current med regimen [id number] Kavon Carney MD [facility] [address] [place] [address] 01/11/2020 11:37:42 01/11/2020 13:41:33 Chronic kidney disease due to type 2 diabetes mellitus 1291556641 08 E11.22 sp itchy areas ,sp dm control Diabetic foot ulcer 3710 80318 E13.621 r foot ulcer healing,no jacuzzi.sp dr sanchez ,sp antibiotic s ,sp doxy 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 2 diabetes mellitus 6027873072 107 E11.42 dn stable,bli ster .dsg silvadene, sp med honey doing better,inc lantus 30 u Atypical mycobacterial infection 645745963 A31.9 sp lung bx,pt,and parking permit [id number] Kavon Carney MD Main Office [address] [employer] [address] 02/29/2020 10:36:00 02/29/2020 11:17:12 Tenosynovitis 54733683 M65.9 left 1st digit,sp trauma Atypical mycobacterial infection 951432357 A31.9 sp lung bx,pt,and parking permit 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 1538539641 08 E11.22 sp itchy areas ,sp dm control Diabetic foot ulcer 3710 06119 E13.621 r foot ulcer healing,no jacuzzi.sp dr sanchez ,sp antibiotic s ,sp doxy Diarrheal disorder 53601 3008 R19.7 add wellchol,l abs analysis,g luten free diet Dysphagia 90616836 R13.1 0 ba swallow ,small hiatal hernia.sp eso dilation dr sorensen Essential hypertension 30258715 I10 bp log,dec lisinopril 20 po qd Irritable bowel syndrome characterized by constipation 714048137 K58.1 add linzess 72,se explained ,ct abdo nxt Malignant tumor of breast 441579911 C50.919 sp rx,sp pet Osteoporosis 19862988 M8 1.0 dexa 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 2 diabetes mellitus 1949733690 107 E11.42 dn stable,bli ster .dsg silvadene, sp med honey doing better,inc lantus 30 u 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 sp mssa x 3months Transient cerebral ischemia 017676763 G45.9 supp care [id number] Kavon Carney MD Main Office [address] [employer] [address] 04/13/2020 10:31:59 04/13/2020 11:31:02 Essential hypertension 26060693 I10 bp log,dec lisinopril 20 po qd Atypical mycobacterial infection 374794671 A31.9 sp lung bx,pt,and parking permit 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 7020979993 08 E11.22 sp itchy areas ,sp dm control Diabetic foot ulcer 3710 92768 E13.621 r foot ulcer healing,no jacuzzi.sp dr sanchez ,sp antibiotic s ,sp doxy Dysphagia 78443659 R13.1 0 ba swallow ,small hiatal hernia.sp eso dilation dr sorensen Irritable bowel syndrome characterized by constipation 228712236 K58.1 add linzess 72,se explained ,ct abdo nxt Malignant tumor of breast 920133641 C50.919 sp rx,sp pet Osteoporosis 05023536 M8 1.0 dexa 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 2 diabetes mellitus 7772293806 107 E11.42 dn stable,bli ster .dsg silvadene, sp med honey doing better,inc lantus 30 u Transient cerebral ischemia 448183763 G45.9 supp care Depressive disorder 3548 9007 F32.9 add duloxetine 30 po qd,phq 9 at 10 Urinary tr act infectious disease 64300821 N39.0 add bactrim ds plus probiotics 54607 Cinda Banuelos, ZACHARY, S Main Office [address] [facility] [place] [address] 7 05/05/2020 09:32:03 05/05/2020 10:26:58 Pain of left calf [id number] 064822 M79.662 s/p inactivity , riding in [facility] venous Hyperglyce yoly due to type 2 diabetes mellitus 6479016492 35730 E11.65 1. A1C: 9.9 -uncontrol led -Continue medication s: lantus and novolog -Discussed diabetic diet and exercise. Low carb/sugar . -Educated on proper foot care Essential hypertension 39146373 I10 stable, monitor 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 2 diabetes mellitus 0072737289 107 E11.42 no change in sxdiscusse d tight glycemic control 45802 Kavon Carney MD Main Office [address] [place] [address] 05/25/2020 10:34:23 05/25/2020 12:04:57 Atypical mycobacterial infection 276838522 A31.9 sp lung bx,pt,and parking permit 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 9160825802 08 E11.22 sp itchy areas ,sp dm controlhba 1c 9.9% add dexcon6 Diarrheal disorder 68839 3008 R19.7 add wellchol,l abs analysis,g luten free diet Dysphagia 87176881 R13.1 0 ba swallow ,small hiatal hernia.sp eso dilation dr sorensen Essential hypertension 46841990 I10 bp log,dec lisinopril 20 po qd Diabetic foot ulcer 3710 60857 E13.621 r foot ulcer healing,no jacuzzi.sp dr sanchez ,sp antibiotic s ,sp doxy 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 957958829 E11.43 add egd [place]peridon e 17211 Kavon Carney MD Main Office [address] [employer] [address] 07/27/2020 10:24:28 07/28/2020 21:34:11 Chronic kidney disease due to type 2 diabetes mellitus 8152503192 08 E11.22 sp itchy areas ,sp dm controlhba 1c 9.9% add dexcon6 Depressive disorder 3548 9007 F32.9 add duloxetine 30 po qd,phq 9 at 10 Renewal of prescription 350628904 Z76.0 non compliant , Dysphagia 20184942 R13.1 0 ba swallow ,small hiatal hernia.sp eso dilation dr sorensen Essential hypertension 82566281 I10 bp log,dec lisinopril 20 po qd 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 add egd and domperidon e Irritable bowel syndrome characterized by constipation 962901015 K58.1 add linzess 72,se explained ,ct abdo nxt Malignant tumor of breast 011303461 C50.919 sp rx,sp pet Osteoporosis 38463243 M8 1.0 dexa 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 sp mssa x 3months Tenosynovitis 72270288 M 65.9 left 1st digit,sp trauma Trigger finger 523073252 [address] alaniz sp dpn with trigger fingers 07179 Kavon Carney MD Main Office [address] [employer] [address] 08/09/2020 13:51:15 08/09/2020 15:06:22 Diarrheal disorder 144260179 R19.7 add wellchol,l abs analysis,g luten free dietr,o c diffadd peptoabd 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 1478826839 08 E11.22 sp itchy areas ,sp dm controlhba 1c 9.9% add dexcon6 Clostridio ides difficile infection 474299072 A04.72 add flagyl 500 po tid x 14 days Essential hypertension 09740845 I10 bp log,dec lisinopril 20 po qd Health Concerns Section Related Observation LastModified by Organization Detai ls LastModified Time None Recorded Concern Status LastModified by Organization Details LastModified Time None Recorded Advance Directives Directive Y: Payers Encounter Date Sequence Insurance Name Policy Number Policy Guillory Covered Member ID Guillory Member ID Guarantor Name 04/13/2020 2 [place] [id number] Tosin A Gonzalez [id number] 04/13/2020 1 [place] Tosin A Gonzalez [id number] 05/05/2020 2 [place] [id number] Tosin A Gonzalez [id number] 05/05/2020 [place] Tosin A Gonzalez [id number] 05/25/2020 2 [place] [id number] Tosin A Gonzalez [id number] 05/25/2020 1 [place] Tosin A Gonzalez [id number] 07/27/2020 2 [place] [id number] Tosin A Gonzalez [id number] 07/27/2020 1 [place] Tosin A Gonzalez [id number] 08/09/2020 2 [place] [id number] Tosin A Gonzalez [id number] 08/09/2020 1 [place] Tosin A Gonzalez [id number] Notes Date Note Type Note Provider [...] eling r legs Kavon Carney MD [address] [place], [address], [facility] 04/13/2020 11:15:44 05/05/2020 text/html Generic HPI TemplateReported bypatient.Location:lle Quality:aching Severity:moderate Duration:constant Onset/Timin day Context:s/p riding and sitting in car REYMUNDO Mitchell, [facility] 05/05/2020 10:25:00 05/25/2020 text/html sp flu shot at r arm,tender with itck add benadryl,at [facility] Kavon Carney MD [address] [place], [address], [facility] 06/14/2020 08:52:50 07/27/2020 text/html Diabetes F/URepo rted bypatient.Review finger sticks:fastin Labs:last A1C result: 10.9% Kavon Carney MD [address] [place], [address], [facility] 07/27/2020 11:42:43 08/09/2020 text/html sp pneumonia rx ,now with diarrheaand feels deletdsp [facility] follow upr,o c diffadd peto 30 ml po bidadd robitussin AC Kavon Carney MD [address] [place], [address], [facility] 08/09/2020 15:03:52 OBGyn Episode No OBEpisode recorded.
--- OUTSIDE RECORDS SUMMARY | 2025-02-11 13:12 | XMS_ITS ---
Author Organization [facility] Address [address] [place] [address] Care Team Providers Care Sliver Lap Tender Name Role Phone Cassandra Tolentino MD Primary Care Provider Kelly Mari Unavailable [phone] Allergies Allergen (clinical drug ingredient) Drug/Non Drug Allergy documented on EMR Reaction Allergy Type Onset Date Status hydromorphone Dilaudid Unknown Drug Allergy Act atilio codeine Codeine Unknown Drug Allergy Active morphine Morphine Unknown Drug Allergy Active REASON FOR VISIT At Risk Footcare Medications Medication SIG (Take, Route, Frequency, Duration) Notes Start Date End Date Status Ferrous Sulfate Acti ve Eliquis Active amLODIPine Besylate Active Alendronate Sodium A ctive Extra Depth Orthopedic Shoes (1 Pair) with Customized Heat Molded Multidensity Innersoles (3 Pair) as directed Dx: NIDDM/Polyneuropathy (E11.42), Hammertoe Foot Deformity (M20.41,M20.42), Preulcerative Skin Lesion(s) (L85.1 10/06/2024 Active Vitamin D Active Vitamin B12 Active Magnesium Oxide Acti ve Levothyroxine Sodium Active Furosemide Active Social History Tobacco Use: Social History Observation Description Date Details (start date - stop date) Never Smoker NA - NA Tobacco use other than smoking: Question Answer Notes Are you an other tobacco user? No Tobacco Control (Standard) Question Answer Notes Tobacco use: Nonsmoker Additional Findings: Tobacco non-user Current no nsmoker Vital Signs Height 5ft 5in in 01/22/2025 Weight 143 lbs 01/22/2025 BMI 23.79 kg/m2 01/22/2025 Encounters Encounter Location Date [facility] [address] [facility] [address] [place] [address] 01/22/2025 Kelly Burr Type 2 diabetes mellitus with diabetic polyneuropathy E11.42 and Tinea unguium B35.1 Assessments Encounter Date Diagnosis (ICD Code) Assessment Notes Treatment Notes Treatment Clinical Notes Section Notes 01/22/2025 Type 2 diabetes mellitus with diabetic polyneuropathy (ICD-10 - E11.42) 01/22/2025 Tinea unguium (ICD-10 - B35.1) Plan Of Treatment Next Appt Details Follow Up: 4 Months, Reason: Provider Name:Kelly lakhani, 04/23/2025 02:00:00 PM, [address] [facility], [place] [address], [place], [address], Procedure Notes * Category Sub-Category Detail Notes [...] use of a nail nipper and/or dremel-type organ grinder, to a more viable healthy nail [...] to maintain effectiveness in symptomatic relief - 80925 Keratoma Treatment Parring or Cutting o f [...] instrumentation by the physician of record - 79646 Progress Notes * Nicolás GONZALEZOB:1945 (79 yo F)Acc No.[id number]:01/22/2025 Progress Note Patient:?Tosin GONZALEZ Provider:?Kelly Burr DPM :1945???Age:79 Y???Sex:Female D ate:01/22/2025 Address:[address] [place] [address] , [facility] Pcp:Cassandra Tolentino MD Subjective: * Chief Complaints: * ???At Risk Footcare * HPI: ???At Risk footcare:?Pt States Last PCP Visit:?Date?12/28/2024 * ROS:?General/Constitutional:?Nausea?denies.?Vomiting?denies.?Hunger Thirst?denies.?Loss appetite?denies.?Chills?denies.?Fatigue?denies.?Fever?denies.?Night Sweats?denies.?Unexplained weight loss?denies.?Unexplained [...] side 2008middle lobe of lung 2002right hip 2022toe sx 2008 * Hospitalization/Major Diagno stic Procedure:?[facility]- [...] yes, 3. ?Exercise: no. ?Marital status: Single. * Medications:?TakingVitamin D Vitamin B12 Magnesium Oxide Levothyroxine Sodium Furosemide Ferrous Sulfate Eliquis amLODIPine Besylate Alendronate Sodium Extra Depth Orthopedic Shoes (1 Pair) with Customized Heat Molded Multidensity Innersoles (3 Pair) as directed Dx: NIDDM/Polyneuropathy (E11.42), Hammertoe Foot Deformity (M20.41,M20.42), Preulcerative Skin Lesion(s) (L85.1 Medication List reviewed and reconciled with the patientTaking Vitamin D Taking Vitamin B12 Taking Magnesium Oxide Taking Levothyroxine Sodium Taking Furosemide Taking Ferrous Sulfate Taking Eliquis Taking amLODIPine Besylate Taking Alendronate Sodium Taking Extra Depth Orthopedic Shoes (1 Pair) with Customized Heat Molded Multidensity Innersoles (3 Pair) as directed Dx: NIDDM/Polyneuropathy (E11.42), Hammertoe Foot Deformity (M20.41,M20.42), Preulcerative Skin Lesion(s) (L85.1 Medication List reviewed and reconciled with the patient * Allergies:?MorphineDilaudidC monica[Allergies Verified] Objective: * Vitals:?Ht: 5ft 5in, Wt: 143 , BMI: 23.79, Shoe size: 8.5W, BS: 210, Ht-cm: 165.1 cm, Wt-k.86 kg. * ???Past Orders: ???Lab:HEMOGLOBIN A1C (GLYCO HEMOGLOBIN) (Order Date - 12/28/2024) (Collection Date & Time - 12/28/2024 12:56 PM) ? Value Reference Range ?HEMOGLOBIN A1C % (HH) 7.7 * Examination: ???Ophthalmology Referral: ?DIABETES EYE EXAM?Procedure Performed:?No?Neurological: ?SENSORY:? Neurological exam demonstrates, reduced light touch [...] metatarsal head b/l, sub 3rd metatarsal head, RIGHT.? Assessment: * Assessment: 1.?Type 2 diabetes mellitus with diabetic polyneuropathy - E11.42 (Primary)???2.?Tinea unguium - B35.1??? Plan: * Treatment: * Procedures:?Debride Nail 6-10:?Nail debridement?Due to the [...] use of a nail nipper and/or dremel-type organ grinder, to a more viable healthy nail [...] to maintain effectiveness in symptomatic relief - 88205.?Keratoma Treatment:?Parring or Cutting of Benign Hyperkeratotic Lesion(s)?(-57) [...] instrumentation by the physician of record - 65166.? * Procedure Codes:?39602 DEBRI DE NAIL, 6 OR MORE, Modifiers: XS 06476 TRIM SKIN LESIONS, OVER 4, Modifiers: XS * Follow Up:?4 Months * Images: * Sign off status: Completed true * Provider:?Kelly Burr DPM Date:?0 01/22/2025 Generated for Obdulio ratliff/Garrett/eTransmitting on:?02/11/2025 01:12 PM EDT History and Physical Notes * HPI (History of Present Illness) Category Sub-Category Detail Notes Category Not es At Risk footcare Pt States Last PCP Visit: Date: 5 Examination Category Sub-Category Detail Notes Category Not [...] head b/l, sub 3rd metatarsal head, RIGHT Ophthalmology Referral DIABETES EYE EXAM Procedu re Performed:: No Nails NAILS are: Elongated, overg rown, dystrophic, lytic, greater than 3mm thick, discolored and friable with crumbly malodorous subungual debris, TA, T1, T2, T3, T4, T5, T6, T7, T8, T9
--- OUTSIDE RECORDS SUMMARY | 2025-02-11 13:12 | XMS_ITS ---
Author Organization [facility] Address [address] [place] [address] Care Team Providers Care Bracelet Maker Novelty Name Role Phone Randa MOTA, Cassandra Primary Care Provider Kelly Mari [phone] REASON FOR VISIT r/s 01/19 Encounters Encounter Location Date Provider Diagnosis [facility] [address] [place] [address] 10/13/2024 Kelly Burr Plan Of Treatment Next Appt Details Provider Name:Kelly lakhani, 04/23/2025 02:00:00 PM, [address] [facility], [place] [address], [place], [address], Progress Notes * Nicolás GONZALEZOB:1945 (79 yo F)Acc No.[id number]:10/13/2024 Patient:?Tosin GONZALEZ :1945???Age:79 Y???Sex:Female Address:[place] [address] * true * Date:? Generated for Printi ng/Faxing/eTransmitting on:?02/11/2025 01:12 PM EDT
--- OUTSIDE RECORDS SUMMARY | 2025-02-11 13:12 | XMS_ITS | Clinical Summary ---
Author Organization [facility] Address [address] [place] [address], [place] [address] Care Team Providers Care Drum Cleaner Name Role Phone Cassandra Tolentino MD Primary Care Provider [phone] Medications amLODIPine (NORVASC) 5 MG tablet Take 5 mg by mouth 1 (one) time each day Active aspirin (ST KARY) 81 MG EC tablet Take 81 mg by mouth 1 (one) time each day Active Glucagon (Baqsimi One Pack) 3 MG/DOSE powder Administer into affected nostril(s) Active ergocalciferol 1.25 MG (92855 UT) capsule Take 50,000 Units by mouth [...] Due Date Last Done Comments Pneumococcal Vaccine: 50+ Years (2 of 2 - PPSV23, PCV20, or PCV21) 11/20/2016 09/25/2016 Diabetes: Ophthalmology Exam 10/23/2020 Diabetes: Pedal Pulse Checked 10/23/2020 Diabetes: Sensory Foot Exam 10/23/2020 Diabetes: Visual Foot Exam 10/23/2020 Diabetes: Hemoglobin A1C 01/22/2024 10/24/2023 Influenza Vaccine (Season Ended) 2025 07/04/2018, 06/07/2010, 06/23/2009 Pneumococcal Vaccine: Peds ( 0 to 5 Years) and At-Risk Patients (6 to 49 Years) Discontinued 09/25/2016 Hepatitis B Vaccine Aged Out No longe [...] AM EST) Hemoglobin A1C 8.9(H) (4.0-5.6) % [facility] Comment: MONITORING: In known diabetic patients, hemoglobin A1c targets should be discussed with health care provider. DIAGNOSTIC USE: ??The [place] Diabetes Association (ADA) and the World Health [...] Supplement 1 Testing performed or reported by [facility], a Service of [facility], [address] [place] [address] Charli Ortiz MD, Building Maintenance Mechanic [facility]# [id number] Blood specimen (specimen) Venous blood / Unknown 10/24/2023 10:43 AM EST 10/24/2023 11:05 AM EST us Geovanny Allen MD LAB BLOOD ORDERABLES Marielle stewart Result [facility] from Last 3 Months or Most Recently Relevant to Health Maintenance Insurance [place] Medicaid [place] Care Teams Drum Cleaner Relationship Specialty Start Date End Date Cassandra Tolentino MD [address] [place], [place] PCP - General 10/03/20
--- NOTE | 2025-02-11 13:20 | MHC.OFFVIS ---
Vital Signs 02/11/25 13:21 Height 5 ft 4 in Weight 150 lb BMI 25.7 Intake Visit Reasons: OV-right hip pain follow up Intake Note: Tosin is an 79 year old female who presents for follow up after undergoing right hip open reduction and internal fixation surgery with placement of a short gamma nail at another facility on 12/05/2023. The patient reports mild intermittent discomfort along the lateral aspect of her right hip. She states that she did fall backwards several weeks ago when she got up to go to the bathroom in the middle of the night. She denies any increase in her hip discomfort following that injury. Allergies codeine Allergy (Verified 02/11/25 13:21) Unknown duloxetine Allergy (Verified 02/11/25 13:21) Unknown gluten Allergy (Verified 02/11/25 13:21) Unknown hydromorphone Allergy (Verified 02/11/25 13:21) Unknown iodine Allergy (Verified 02/11/25 13:21) Unknown morphine Allergy (Verified 02/11/25 13:21) Unknown pregabalin Allergy (Verified 02/11/25 13:21) Unknown shellfish derived [shellfish] Allergy (Verified 02/11/25 13:21) Unknown Medication List - Last Reconciled 02/11/25 by Ruy Cedeño MD alendronate 70 mg PO QWEEK amlodipine 2.5 mg PO DAILY apixaban (Eliquis) 2.5 mg PO BID doxycycline hyclate 100 mg PO BID furosemide 20 mg PO BID insulin aspart U-100 (Novolog U-100 Insulin aspart) subcut levothyroxine 125 mcg PO DAILY lisinopril 5 mg PO DAILY nitroglycerin 0 mg sublingual phenazopyridine (Pyridium) 100 mg PO TID PRN 6 doses prednisone 20 mg PO BID sub-q insulin device, 20 unit (V-GO 20 device) As directed [facility] Medical History HTN (hypertension) Cervical cancer Thyroid cancer Breast cancer Diabetes Surgical History History of hip surgery Status post partial removal of lung H/O: hysterectomy H/O mastectomy Social History Patient Tobacco Use Status: Never used Tobacco Current occupational status: retired 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 Physical Exam Vital Signs: BMI result Body Mass Index 25.7 Extrem Other: Right hip examination shows that the surgical incisions are well healed, no erythema, minimal discomfort with range of motion, mild tenderness over her bursa, no crepitus with range of motion Results Reviewed Results Reviewed: X-rays of the patient's right femur show a long gamma nail in good position with no signs of loosening, the distal locking bolt remains broken (unchanged from prior x-rays), callus formation at the proximal femur fracture site Assessment & Plan Assessment & Plan (1) Right hip pain: Code(s): M25.551 - Pain in right hip Category: Medical Plan Ms. Gonzalez continues to do well after undergoing open reduction and internal fixation of her right hip fracture with placement of long gamma nail. She can continue activities as tolerated. She will follow up with me on an as-needed basis should any questions or concerns arise. Feel free to call me at any time should questions regarding her orthopedic management arise. I spent 20 minutes in reviewing the patient's records and imaging studies, seeing the patient and documenting in the medical record. Orders: Orders XR femur RT 2V Today M25.551 - Pain in right hip Coding Level of Care Code Est Pt Level 3 (09787) Complex EM visit Add On G2211 Diagnoses Right hip pain M25.551
[2025-02-11 13:21] VITALS: BMI 25.7
== END 2025-02-11 13:32 | disposition home or self-care (01) ==
LOC: HO.HOS 13:09
PROVIDERS: PCP Internal Medicine; Visit Provider Orthopaedic Surgery
DX: M25.551 Pain in right hip (principal)
CPT/HCPCS: 99213; G2211

== ENCOUNTER → 2025-02-11 13:10 | Outpatient (BNV) | payer MEDICARE, MEDICAID, SELFPAY | PROVIDERS: Visit Provider Specialist | DX: M25.551 Pain in right hip (principal) | CPT/HCPCS: 73552 ==

== ENCOUNTER 2025-05-10 13:20 | Emergency (ER) | payer MEDICARE, MEDICAID, SELFPAY ==
--- NOTE | ~2025-05-10 | XR_ITS ---
CLINICAL HISTORY: dyspnea on exertion 1 view chest x-ray. Comparison: 11/16/2024 Findings: Heart size normal. Pulmonary vasculature is unremarkable. No pleural fluid. No acute fracture. Hemostasis clips are present in the left axilla Impression: Lungs are well-aerated. No pneumothorax. This document has been electronically signed by: Maurilio Hernandez MD on 05/10/2025 17:50:46
--- NOTE | ~2025-05-10 | US_ITS ---
EXAMINATION: US TRIPLEX LOWER EXTREMITY, BILATERAL CLINICAL INFORMATION: Edema, lower extremities COMPARISON: None available. TECHNIQUE: Color-flow triplex imaging with spectral analysis and compression Doppler were performed on the bilateral lower extremities. FINDINGS: Respiratory variation, normal compression and augmented flow are demonstrated through the interrogated common femoral vein, superficial femoral vein, profunda femoral vein, popliteal vein and midcalf peroneal and posterior tibial venous segments, both lower extremities . There is no Clinton's cyst. Edema pattern in the soft tissues without fluid collections. US/US venous duplex LE BI IMPRESSION: No acute deep venous thrombosis interrogated veins, bilateral lower extremities. Negative for DVT. Electronically signed by: Jeremy Fang MD 05/10/2025 03:51 PM EDT
[2025-05-10 13:37] VITALS: BP 136/70; PULSE 74; O2SAT 97
[2025-05-10 13:40] VITALS: BP 147/67; PULSE 74; RESP 16; TEMP 37; O2SAT 97; BMI 22.8
--- NOTE | 2025-05-10 13:42 | ED.GENADULT ---
HPI - General Adult General Chief complaint: Extremity Problem Stated complaint: LEG EDEMA PER EMS Time Seen by Provider: 05/10/25 17:05 History of Present Illness ED Provider: Trevor GUNTER narrative: The patient is an 79-year-old woman who lives in an elderly housing apartment. She comes to the emergency room because she has had worsening swelling of both of her lower legs since Saturday, 3 days ago. She takes furosemide 20 mg b.i.d.. She called her regular doctor's office today asking for an increased dose of furosemide. Her primary care doctor advised her that she would need to be seen in an emergency room and so she came here. She has had no fever, sweats, chills. She has had no chest pain and she also denies shortness of breath. The patient says that while waiting to be seen she has been sitting with her feet elevated and this seems to have helped her swelling. Related Data Home Medications ?Medication ?Instructions ?Recorded ?Confirmed alendronate 70 mg tablet 70 mg PO QWEEK 05/03/23 02/11/25 amlodipine 2.5 mg tablet 2.5 mg PO DAILY 05/03/23 02/11/25 apixaban 2.5 mg tablet (Eliquis) 2.5 mg PO BID 05/03/23 02/11/25 furosemide 20 mg tablet 20 mg PO BID 05/03/23 02/11/25 insulin aspart U-100 100 unit/mL subcut 05/03/23 02/11/25 subcutaneous solution (Novolog U-100 Insulin aspart) levothyroxine 125 mcg tablet 125 mcg PO DAILY 05/03/23 02/11/25 lisinopril 5 mg tablet 5 mg PO DAILY 05/03/23 02/11/25 nitroglycerin 0.4 mg sublingual 0 mg sublingual 05/03/23 02/11/25 tablet sub-q insulin device, 20 unit #30 ea 05/03/23 02/11/25 (V-GO 20 device) Previous Rx's ?Medication ?Instructions ?Recorded doxycycline hyclate 100 mg tablet 100 mg PO BID #14 tabs 11/16/24 prednisone 20 mg tablet 20 mg PO BID #10 tabs 11/16/24 phenazopyridine 100 mg tablet 100 mg PO TID PRN pain 6 doses #6 12/22/24 (Pyridium) tabs furosemide 40 mg tablet (Lasix) 40 mg PO BID #60 tabs 05/10/25 Allergies Allergy/AdvReac Type Severity Reaction Status Date / Time codeine Allergy Unknown Verified 05/10/25 13:43 duloxetine Allergy Unknown Verified 05/10/25 13:43 gluten Allergy Unknown Verified 05/10/25 13:43 hydromorphone Allergy Unknown Verified 05/10/25 13:43 iodine Allergy Unknown Verified 05/10/25 13:43 morphine Allergy Unknown Verified 05/10/25 13:43 pregabalin Allergy Unknown Verified 05/10/25 13:43 shellfish derived (shellfish) Allergy Unknown Verified 05/10/25 13:43 Review of Systems Review of Systems: Yes all other systems are reviewed and are negative [facility] Past Medical History Medical History HTN (hypertension) Cervical cancer Thyroid cancer Breast cancer Diabetes Surgical History History of hip surgery Status post partial removal of lung H/O: hysterectomy H/O mastectomy Social History Social History Patient Tobacco Use Status: Never used Tobacco Advance Directives: No Advance Directives Information Provided: No Do you have a plan to hurt others: No Plan Current occupational status: retired 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 Physical Exam ED Vital Signs: Vital Signs - 24 hr 05/10/25 13:40 05/10/25 17:48 05/10/25 17:55 Temperature 98.6 F 97.7 F 97.7 F Pulse Rate 74 65 Respiratory Rate 16 18 Blood Pressure 147/67 H 154/84 H Pulse Oximetry 97 98 Oxygen Delivery Method Room Air Room Air 05/10/25 19:32 Temperature 98 F Pulse Rate 70 Respiratory Rate 16 Blood Pressure 137/92 H Pulse Oximetry 98 Oxygen Delivery Method Room Air BMI result Body Mass Index 22.8 Const Other: The patient is a chronically ill-appearing 79-year-old woman who was awake and alert. She looks chronically ill but not obviously acutely ill. Her mental status seems normal. She does not seem in pain. There was no sign of respiratory difficulty. HENMT Other: Face is symmetrical, mucous membranes moist Eyes Other: Pupils are round equal, conjunctivae are clear, extraocular movements intact Neck Neck: Yes normal visual inspection, Yes full ROM and Yes no JVD Resp Effort & Inspection: normal respiratory effort Auscultation: clear to auscultation bilaterally Cardio Rate: regular rate Rhythm: regular rhythm Heart sounds: S1 normal heart sound present and S2 normal heart sound present GI Other: The abdomen is soft and nontender Skin Other: The patient has significantly edematous skin to the lower legs. She has some abrasions to the skin of the right lower leg but no sign of cellulitis. The edema is pitting. Neuro Other: The patient is awake and alert with a normal mental status. Cranial nerves are grossly intact. She moves her extremities symmetrically. She seems grossly neurologically intact. Extrem Other: The patient has 2 to 3+ edema of the lower legs and feet. The edema is pitting. No significant asymmetry. No sign of cellulitis. Course Course Course Narrative: This is a Rapid Medical Examination (RME) performed by Fabián Rodriguez PA-C in triage. Full HPI, ROS, assessment and treatment plan per primary provider in the Main ED. Hx: 79 yo F hx gout, DM, afib, breast cancer s/p L mastectomy here for eval increased b/l LE swelling (L>R) x3 days. Also reports a dog scratch to her right thigh (unable to visualize in triage due to clothes). she is on eliquis and lasix. no recent dose adjustments. PE/vitals: 3+ pitting edema to LEs. +calf tenderness b/l. further exam limited d/t dressing. Plan: labs, US Medications Administered Discontinued Medications Generic Name Dose Route Start Last Admin Trade Name Pearl PRN Reason Stop Dose Admin Sodium Zirconium Cyclosilicate 10 gm 05/10/25 18:54 05/10/25 19:32 Sodium Zirconium Cyclosilicate 10 Gm Powd.Pack PO 05/10/25 18:55 10 gm ONCE ONE Administration Medical Decision Making Medical Decision Making [facility] Narrative: The patient is an 79-year-old woman with multiple medical problems including type 1 diabetes who has an insulin pump who presents for evaluation of 3 days of lower extremity edema. Bilateral lower extremity ultrasound was ordered at triage. This shows no sign of DVT. I suspect the patient has peripheral edema is secondary to some underlying cardiac insufficiency. The patient is already on furosemide 20 mg b.i.d.. The patient has a nonischemic EKG and a normal troponin. I do not think she has had a recent coronary event. The patient's renal function is slightly worse than when last checked. Her creatinine today is 1.59 with a BUN of 53 and a GFR 31. Four months ago she had a creatinine of 1.39, a BUN of 36, and a GFR of 36. The patient's potassium is elevated at 5.7. She also has some abnormal LFTs today. Her AST today is 185, ALT 189, alk phos 151. Four months ago she had an AST of 56, ALT 65, and an alk phos of 129. Her bilirubin is normal. Chest x-ray shows no acute findings today and she has no chest or pulmonary complaints. I do not have a clear explanation for why the patient has developed worsening peripheral edema. 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 The patient does not wish to be hospitalized. Her potassium is somewhat high but not severely so. I think it would be reasonable to try increasing the patient has furosemide to 40 mg b.i.d.. My hope is that the increase in furosemide will help to alleviate her elevated potassium. In any event the patient will need prompt follow up and repeat labs. The patient says that she feels confident that her primary care doctor we will be able to get her in this week for a recheck. The patient was [facility] She will start her higher dose furosemide tomorrow. She will call her PCP's office tomorrow for a prompt follow up appointment as an outpatient. If she feels worse she should return to the emergency room. Lab Data 05/10/25 14:14 05/10/25 14:14 Labs: Lab Results 05/10/25 Range/Units 14:14 WBC 7.6 (4.8-10.8) X10*3/uL RBC 3.96 L (4.20-5.50) X10*6/uL Hgb 12.5 (12.0-16.0) g/dl Hct 37.1 (37.0-47.0) % MCV 93.7 (80.0-98.0) fL MCH 31.6 (27.0-33.0) pg MCHC 33.7 (31.0-35.0) g/dl RDW 16.3 H (11.0-16.0) % Plt Count 187 (160-400) X10*3/uL MPV 11.6 (9.4-12.3) fL Immature Gran % (Auto) 0.5 H (0.0-0.4) % Neut % (Auto) 89.7 H (45-73) % Lymph % (Auto) 8.6 L (20-40) % Mitchell % (Auto) 0.8 L (2-11) % Eos % (Auto) 0.0 (0-4) % Baso % (Auto) 0.4 (0-2) % Lymph # (Auto) 0.7 L (1.2-4.9) X10*3/uL Mitchell # (Auto) 0.1 (0.1-1.2) X10*3/uL Eos # (Auto) 0.0 (0.0-0.4) X10*3/uL Baso # (Auto) 0.0 (0.0-0.2) X10*3/uL Abs Immat Gran (auto) 0.04 H (0.00-0.03) X10*3/uL Absolute Neuts (auto) 6.8 (2.0-8.3) x10*3/uL Absolute Nucleated RBC 0.000 (0.0-0.012) X10*3/uL Nucleated RBC % (auto) 0.0 (0.0-0.2) /100WBC ESR 10 (0-20) MM/HR Sodium 135 (135-145) mmol/L Potassium 5.7 H D (3.3-5.1) mmol/L Chloride 99 (96-108) mmol/L Carbon Dioxide 26 (22-29) mmol/L Anion Gap 16 (12-20) BUN 53 H (9-16) mg/dL Creatinine 1.59 H (0.5-1.4) mg/dL Estim Creat Clear Calc 24.9 Estimated GFR 31 Random Glucose 298 H (60-115) mg/dL Calcium 8.5 (8.4-10.2) mg/dL Magnesium 2.4 (1.6-2.6) mg/dL Total Bilirubin 0.7 (0.0-1.0) mg/dL AST 185 H (5-31) U/L ALT 189 H (0-31) U/L Alkaline Phosphatase 151 H (39-117) U/L Troponin I High Sens 8.7 D (<3.5-17.0) ng/L C-Reactive Protein 0.12 (< or = 0.50) mg/dL Total Protein 6.4 L (6.5-8.0) g/dL Albumin 3.7 (3.5-5.0) g/dL Independent Interpretation I performed an independent interpretation of an: EKG Interpretation: EKG at 1743 shows sinus rhythm with premature atrial complexes at 70 beats per minute. Discharge Plan Discharge Clinical Impression: Peripheral edema, Type 1 diabetes, Chronic renal insufficiency, Abnormal LFTs Patient Disposition: Home, Self-Care Additional Instructions: Your testing in the emergency room today shows that you have no blood clots causing the swelling in your legs. I also do not think the swelling in your legs is related to an infection. Increasing your Lasix (furosemide) will probably be helpful in reducing the swelling. However your testing shows that you have some degree of worsening kidney function and your liver testing is also somewhat abnormal. For these reasons it is very important that you get rechecked at your regular doctor's office this week. Therefore please start the higher dose of furosemide (Lasix) tomorrow morning. You can take 40 mg of furosemide 2 times a day instead of your current 20 mg. Please contact your regular doctor's office in the morning for a prompt follow up appointment this week. If you feel significantly worse please return to the emergency department. Prescriptions: New furosemide [Lasix] 40 mg tablet 40 mg PO BID Qty: 60 0RF No Action doxycycline hyclate 100 mg tablet 100 mg PO BID Qty: 14 0RF prednisone 20 mg tablet 20 mg PO BID Qty: 10 0RF phenazopyridine [Pyridium] 100 mg tablet 100 mg PO TID PRN (Reason: pain) Qty: 6 0RF nitroglycerin 0.4 mg tablet, sublingual 0 mg sublingual Eliquis 2.5 mg tablet 2.5 mg PO BID furosemide 20 mg tablet 20 mg PO BID lisinopril 5 mg tablet 5 mg PO DAILY levothyroxine 125 mcg tablet 125 mcg PO DAILY amlodipine 2.5 mg tablet 2.5 mg PO DAILY alendronate 70 mg tablet 70 mg PO QWEEK (DME) V-GO 20 Device See Rx Instructions .ROUTE .MEDSUPPLY Qty: 30 Rx Instructions: As directed insulin aspart U-100 [Novolog U-100 Insulin aspart] 100 unit/mL solution subcut Referrals: Cassandra Tolentino MD [Physician, Internal Medicine] Interventions: ED Discharge Assessment Last Done: 05/10/25 19:32 Discharge Date/Time: 05/10/25 19:39 Print Language: Amharic
[2025-05-10 14:20] LABS: MANUAL DIFF FLAG NO
[2025-05-10 14:24] LABS: Hematocrit 37.1 % (37.0-47.0); Hemoglobin 12.5 g/dl (12.0-16.0); Imm Gran Abs Auto 0.04 X10*3/uL (0.00-0.03); Imm Gran Pct Auto 0.5 % (0.0-0.4); Lymphocytes Absolute Auto 0.7 X10*3/uL (1.2-4.9); Mean Corpuscular HGB Conc 33.7 g/dl (31.0-35.0); Mean Corpuscular Hemoglobin 31.6 pg (27.0-33.0); Mean Corpuscular Volume 93.7 fL (80.0-98.0); NRBC Abs Auto 0.000 X10*3/uL (0.0-0.012); NRBC Pct Auto 0.0 /100WBC (0.0-0.2); Platelet Count 187 X10*3/uL (160-400); Red Blood Count 3.96 X10*6/uL (4.20-5.50); White Blood Count 7.6 X10*3/uL (4.8-10.8)
[2025-05-10 14:38] LABS: Alanine Aminotransferase 189 U/L (0-31); Albumin Level 3.7 g/dL (3.5-5.0); Alkaline Phosphatase 151 U/L (39-117); Anion Gap 16 (12-20); Aspartate Amino Transferase 185 U/L (5-31); Blood Urea Nitrogen 53 mg/dL (9-16); Calcium 8.5 mg/dL (8.4-10.2); Carbon Dioxide 26 mmol/L (22-29); Chloride 99 mmol/L (96-108); Creatinine Clr Calc Pharmacy 24.9; Estimated Glomerular Filt Rate 31; Magnesium 2.4 mg/dL (1.6-2.6); Potassium 5.7 mmol/L (3.3-5.1); Sodium 135 mmol/L (135-145); Total Protein 6.4 g/dL (6.5-8.0)
--- NOTE | 2025-05-10 16:13 | ECG_ITS ---
Test Reason : hyperkalemic Blood Pressure : */* mmHG Vent. Rate : 70 BPM Atrial Rate : 70 BPM P-R Int : 150 ms QRS Dur : 74 ms QT Int : 388 ms P-R-T Axes : 41 -28 20 degrees QTcB Int : 419 ms Sinus rhythm with Premature atrial complexes Otherwise normal ECG When compared with ECG of 22-Dec-2024 13:07, No significant change was found Referred By: Bri Rodriguez Electronically Signed By: NELI SANCHEZ MD
[2025-05-10 17:48] VITALS: BP 154/84; PULSE 65; RESP 18; TEMP 36.5; O2SAT 98
[2025-05-10 17:55] VITALS: TEMP 36.5
[2025-05-10 18:18] LABS: Troponin-I High Sensitivity 8.7 ng/L (<3.5-17.0)
[2025-05-10 19:32] VITALS: BP 137/92; PULSE 70; RESP 16; TEMP 36.6; O2SAT 98
[2025-05-11 12:35] LABS: B Type Natriuretic Peptide 195 pg/mL (<100)
== END 2025-05-10 19:39 | disposition home or self-care (01) ==
PROVIDERS: Physician Assistant Medical; Emergency Provider Emergency Medicine
DX: R60.9 Edema, unspecified (principal); E10.9 Type 1 diabetes mellitus without complications; N28.9 Disorder of kidney and ureter, unspecified; R79.89 Other specified abnormal findings of blood chemistry; M79.89 Other specified soft tissue disorders
CPT/HCPCS: 36415; 71045; 80053; 83735; 83880; 84484; 85025; 85652; 86140; 93005; 93970; 99284

== ENCOUNTER → 2025-05-10 13:43 | Outpatient (BNV) | payer MEDICARE, MEDICAID, SELFPAY | PROVIDERS: Visit Provider Radiology Diagnostic Radiology | DX: R60.0 Localized edema (principal); R06.00 Dyspnea, unspecified | CPT/HCPCS: 93970 ==

== ENCOUNTER → 2025-05-10 16:13 | Outpatient (BNV) | payer MEDICARE, MEDICAID, SELFPAY | PROVIDERS: Emergency Provider Emergency Medicine; Visit Provider Internal Medicine Cardiovascular Disease | DX: I49.1 Atrial premature depolarization (principal) | CPT/HCPCS: 93010 ==